=== PATIENT | male | born 1930 | race Caucasian/White ===

== ENCOUNTER 2017-11-01 09:56 | Inpatient (IN) | payer MEDICARE, OTHER ==
[~2017-11-01] VITALS: Ht 175.3 cm; Wt 124.3 kg
[2017-11-01] VITALS (7 sets, daily range): BP systolic 80–160; BP diastolic 48–74
[~2017-11-01 09:56] MED LIST: AMARYL4 MG ORAL; COUMADIN4 MG ORAL; COUMADIN5 MG ORAL; CRESTOR10 M1 ORAL; FUROSEMIDE20 M1 ORAL; LYRICA50 MG ORAL; MULTIVITAMINS1 EA13 ORAL; POTASSIUM CHLOR8 ME3 PO; PRILOSEC20 MG ORAL; TOPROL XL25 MG ORAL; TRADJENTA5 MG PO; VITAMIN B122500 MCG PO
--- NOTE | 2017-11-01 09:56 | Emergency Room Report ---
History of Present Illness General Chief Complaint: General Complaint Present Illness HPI Patient is 87-year-old male brought in by EMS after increased difficulty breathing and recent fall. The patient prior history of CHF. Patient was noted to have mostly been bedbound and had been having hospice care with family member. The patient's family member states that she is no longer able to care for the patient. Patient noted markedly short of breath. The patient had prior history of atrial fibrillation and had been taking Coumadin regularly. The patient had been attempting to walk to the bathroom with a walker and subsequently fell onto the walker. Per patient did not lose consciousness or have any head trauma. Patient had prior history of diabetes as well as dementia. Allergies: Coded Allergies: No Known Allergies (Unverified , 12/21/15) Patient History Past Medical History: see triage record Reviewed Nursing Documentation: PMH: Agreed, PSxH: Agreed Review of Systems All Other Systems: negative except mentioned in HPI Physical Exam Sp02 EP Interpretation: reviewed, normal General Appearance: normal inspection, alert, obese, Chronically Ill Head: atraumatic Neck: supple, no bony tend, limited range of motion Respiratory: normal inspection, no retraction, accessory muscle use, rales Cardiovascular #1: tachycardia, irregularly irregular, edema - 4+ edema Gastrointestinal: normal inspection, normal bowel sounds, non tender, soft, no guarding, no hernia Genitourinary: no CVA tenderness Musculoskeletal: normal inspection, back normal, normal range of motion Neurologic: normal inspection, alert, responsive Psychiatric: normal inspection, judgement/insight normal, mood/affect normal Skin: no rash, other - skin avulsion Medical Decision Making Diagnostic Impression: Primary Impression: Pulmonary edema Additional Impressions: Elevated troponin CHF (congestive heart failure) Anasarca Skin avulsion ER Course Patient presented for shortness of breath. Differential included but was not limited to anemia, pneumonia, pneumothorax, myocardial infarction, pericardial effusion, congestive heart failure, acidosis. Because of complexity of patient' s case laboratory testing and imaging studies were ordered.Laboratory studies were notable for elevated BNP as well as subtherapeutic anticoagulation. A troponin was noted to be elevated. The patient started on IV digoxin due to tachycardia and A. fib rate control. Dr. Chris Guerrero was contacted for inpatient managment due to capitated physician. Laboratory Tests Test 11/01/17 10:00 11/01/17 10:04 Troponin I 0.759 ng/mL (0.000-0.056) White Blood Count 8.0 K/UL (4.8-10.8) Red Blood Count 4.00 M/UL (4.70-6.10) L Hemoglobin 12.4 G/DL (14.2-18.0) L Hematocrit 41.2 % (42.0-52.0) L Mean Corpuscular Volume 103 FL (80-99) H Mean Corpuscular Hemoglobin 31.1 PG (27.0-31.0) H Mean Corpuscular Hemoglobin Concent 30.2 G/DL (32.0-36.0) L Red Cell Distribution Width 17.4 % (11.6-14.8) H Platelet Count 114 K/UL (150-450) L Mean Platelet Volume 9.2 FL (6.5-10.1) Neutrophils (%) (Auto) 73.2 % (45.0-75.0) Lymphocytes (%) (Auto) 16.6 % (20.0-45.0) L Monocytes (%) (Auto) 7.0 % (1.0-10.0) Eosinophils (%) (Auto) 2.1 % (0.0-3.0) Basophils (%) (Auto) 1.1 % (0.0-2.0) Prothrombin Time 18.1 SEC (9.30-11.50) H Prothrombin Time INR 1.7 (0.9-1.1) H Urine Color Pale yellow Urine Appearance Clear Urine pH 7 (4.5-8.0) Urine Specific [place] 1.010 (1.005-1.035) Urine Protein Negative (NEGATIVE) Urine Glucose (UA) Negative (NEGATIVE) Urine Ketones Negative (NEGATIVE) Urine Occult Blood Negative (NEGATIVE) Urine Nitrite Negative (NEGATIVE) Urine Bilirubin Negative (NEGATIVE) Urine Urobilinogen Normal MG/DL (0.0-1.0) Urine Leukocyte Esterase Negative (NEGATIVE) Sodium Level 137 MMOL/L (136-145) Potassium Level 4.4 MMOL/L (3.5-5.1) Chloride Level 99 MMOL/L (98-107) Carbon Dioxide Level 36 MMOL/L (21-32) H Anion Gap 2 mmol/L (5-15) L Blood Urea Nitrogen 19 mg/dL (7-18) H Creatinine 1.1 MG/DL (0.55-1.30) Estimate Glomerular Filtration Rate mL/min (>60) Glucose Level 163 MG/DL (74-106) H Calcium Level 9.7 MG/DL (8.5-10.1) Total Bilirubin 0.8 MG/DL (0.2-1.0) Aspartate Amino Transferase (AST) 24 U/L (15-37) Alanine Aminotransferase (ALT) 23 U/L (12-78) Alkaline Phosphatase 110 U/L (46-116) Total Creatine Kinase 27 U/L (26-308) Creatine Kinase MB 0.9 NG/ML (0.0-3.6) Creatine Kinase MB Relative Index 3.3 Pro-B-Type Natriuretic Peptide 1769 pg/mL (0-125) H Total Protein 8.8 G/DL (6.4-8.2) H Albumin 3.3 G/DL (3.4-5.0) L Globulin 5.5 g/dL Albumin/Globulin Ratio 0.6 (1.0-2.7) L Digoxin Level < 0.2 NG/ML (0.5-2.0) L EKG Diagnostic Results Rate: tachycardiac - 121 Rhythm: NSR ST Segments: no acute changes Rhythm Strip Diag. Results EP Interpretation: yes Rhythm: no PVC's, no ectopy Status: unchanged Disposition: ADMITTED INPATIENT Condition: Eyad Andrade Nov 01, 2017 09:56
[2017-11-01] MEDS ORDERED: Nitroglycerin Subl 0.4mg tab SL PRN (10:00)
[2017-11-01] MEDS ORDERED: GLIPIZIDE5 MG ORAL (10:20)
[2017-11-01 10:24] LABS: BASOPHILS % (AUTO) 1.1 % (0.0-2.0); EOSINOPHILS % (AUTO) 2.1 % (0.0-3.0); HEMATOCRIT 41.2 % (42.0-52.0); HEMOGLOBIN 12.4 G/DL (14.2-18.0); LYMPHOCYTES % (AUTO) 16.6 % (20.0-45.0); MEAN CORPUSCULAR VOLUME 103 FL (80-99); NEUTROPHILS % (AUTO) 73.2 % (45.0-75.0); PLATELET COUNT 114 K/UL (150-450); RED CELL DISTRIBUTION WIDTH 17.4 % (11.6-14.8)
[2017-11-01 10:27] LABS: APPEARANCE,URINE CLEAR; BILIRUBIN, URINE NEGATIVE (NEGATIVE); COLOR,URINE PALE YELLOW; GLUCOSE, URINE (UA) NEGATIVE (NEGATIVE); KETONES,URINE NEGATIVE (NEGATIVE); LEUKOCYTE ESTERASE ,URINE NEGATIVE (NEGATIVE); NITRITE,URINE NEGATIVE (NEGATIVE); PH,URINE 7 (4.5-8.0); PROTEIN,URINE NEGATIVE (NEGATIVE); UROBILINOGEN,URINE NORMAL MG/DL (0.0-1.0)
[2017-11-01 10:28] LABS: ANION GAP 2 mmol/L (5-15); BLOOD UREA NITROGEN 19 mg/dL (7-18); CALCIUM 9.7 MG/DL (8.5-10.1); CARBON DIOXIDE 36 MMOL/L (21-32); CHLORIDE 99 MMOL/L (98-107); CREATININE 1.1 MG/DL (0.55-1.30); POTASSIUM 4.4 MMOL/L (3.5-5.1); SODIUM 137 MMOL/L (136-145)
[2017-11-01] MEDS ORDERED: Aspirin Baby 81mg ORAL ONE (10:45)
[2017-11-01] MEDS ORDERED: Digoxin 0.5mg/2ml Inj IVP ONE (10:45)
[2017-11-01 10:47] LABS: ALANINE AMINOTRANSFERASE 23 U/L (12-78); ALBUMIN 3.3 G/DL (3.4-5.0); ALBUMIN/GLOBULIN RATIO 0.6 (1.0-2.7); ALKALINE PHOSPHATASE 110 U/L (46-116); ASPARTATE AMINO TRANSFERASE 24 U/L (15-37); BILIRUBIN,TOTAL 0.8 MG/DL (0.2-1.0); CKMB 0.9 NG/ML (0.0-3.6); CREATINE KINASE 27 U/L (26-308)
[2017-11-01 10:54] LABS: INR 1.7 (0.9-1.1)
--- NOTE | 2017-11-01 11:03 | Diagnostic Imaging Report ---
Indication: Shortness of breath Technique: One view of the chest Comparison: 12/21/2015 Findings: The heart is enlarged. There is bilateral interstitial and airspace edema. There is probably bilateral pleural fluid. There is some retrocardiac consolidation on the left. Patient's chin obscures right lung apex. The aorta is elongated tortuous and calcified Impression: Cardiomegaly. Evidence of bilateral pulmonary interstitial and airspace edema and likely small bilateral pleural effusions
--- NOTE | 2017-11-01 18:47 | Cardiology Progress Note ---
Assessment/Plan Assessment/Plan diuretic check dig level in am echo repeat trop venous duplex anticoagualtio n record indicated pt in hospice? [id number] Objective Last 24 Hour Vital Signs Date Time Temp Pulse Resp B/P (MAP) Pulse Ox O2 Delivery O2 Flow Rate FiO2 11/01/17 17:29 122 30 94 Facial 50 11/01/17 16:00 60 11/01/17 16:00 97.6 109 18 138/70 99 Bi-pap 60 11/01/17 16:00 96 11/01/17 15:22 135 21 95 Facial 50 11/01/17 14:54 97.9 102 35 143/48 96 Bi-pap 40 97.9 11/01/17 13:41 97.9 102 35 143/48 96 Bi-pap 40 97.9 11/01/17 12:35 100 30 96 Facial 35 11/01/17 12:19 40 11/01/17 12:16 102 28 106/66 21 Bi-pap 40 11/01/17 11:18 97.9 29 117/62 94 Bi-pap 40 97.9 11/01/17 10:46 127 54 Bi-pap 35 11/01/17 10:46 129 11/01/17 10:42 127 54 93 Facial 35 11/01/17 10:27 133/74 11/01/17 10:11 97.9 20 133/74 96 Non-Rebreather 97.9 11/01/17 10:08 97.9 20 80/50 96 Non-Rebreather 97.9 11/01/17 09:51 97.8 130 20 80/50 96 Non-Rebreather 97.9 Laboratory Tests Test 11/01/17 10:00 11/01/17 10:04 11/01/17 11:57 Troponin I 0.759 ng/mL (0.000-0.056) 0.696 ng/mL (0.000-0.056) White Blood Count 8.0 K/UL (4.8-10.8) Red Blood Count 4.00 M/UL (4.70-6.10) L Hemoglobin 12.4 G/DL (14.2-18.0) L Hematocrit 41.2 % (42.0-52.0) L Mean Corpuscular Volume 103 FL (80-99) H Mean Corpuscular Hemoglobin 31.1 PG (27.0-31.0) H Mean Corpuscular Hemoglobin Concent 30.2 G/DL (32.0-36.0) L Red Cell Distribution Width 17.4 % (11.6-14.8) H Platelet Count 114 K/UL (150-450) L Mean Platelet Volume 9.2 FL (6.5-10.1) Neutrophils (%) (Auto) 73.2 % (45.0-75.0) Lymphocytes (%) (Auto) 16.6 % (20.0-45.0) L Monocytes (%) (Auto) 7.0 % (1.0-10.0) Eosinophils (%) (Auto) 2.1 % (0.0-3.0) Basophils (%) (Auto) 1.1 % (0.0-2.0) Prothrombin Time 18.1 SEC (9.30-11.50) H Prothromb Time International Ratio 1.7 (0.9-1.1) H Urine Color Pale yellow Urine Appearance Clear Urine pH 7 (4.5-8.0) Urine Specific [place] 1.010 (1.005-1.035) Urine Protein Negative (NEGATIVE) Urine Glucose (UA) Negative (NEGATIVE) Urine Ketones Negative (NEGATIVE) Urine Occult Blood Negative (NEGATIVE) Urine Nitrite Negative (NEGATIVE) Urine Bilirubin Negative (NEGATIVE) Urine Urobilinogen Normal MG/DL (0.0-1.0) Urine Leukocyte Esterase Negative (NEGATIVE) Sodium Level 137 MMOL/L (136-145) Potassium Level 4.4 MMOL/L (3.5-5.1) Chloride Level 99 MMOL/L (98-107) Carbon Dioxide Level 36 MMOL/L (21-32) H Anion Gap 2 mmol/L (5-15) L Blood Urea Nitrogen 19 mg/dL (7-18) H Creatinine 1.1 MG/DL (0.55-1.30) Estimat Glomerular Filtration Rate mL/min (>60) Glucose Level 163 MG/DL (74-106) H Calcium Level 9.7 MG/DL (8.5-10.1) Total Bilirubin 0.8 MG/DL (0.2-1.0) Aspartate Amino Transf (AST/SGOT) 24 U/L (15-37) Alanine Aminotransferase (ALT/SGPT) 23 U/L (12-78) Alkaline Phosphatase 110 U/L (46-116) Total Creatine Kinase 27 U/L (26-308) Creatine Kinase MB 0.9 NG/ML (0.0-3.6) Creatine Kinase MB Relative Index 3.3 Pro-B-Type Natriuretic Peptide 1769 pg/mL (0-125) H Total Protein 8.8 G/DL (6.4-8.2) H Albumin 3.3 G/DL (3.4-5.0) L Globulin 5.5 g/dL Albumin/Globulin Ratio 0.6 (1.0-2.7) L Digoxin Level < 0.2 NG/ML (0.5-2.0) L NAOMIE DO Nov 01, 2017 18:47
[2017-11-01] MEDS ORDERED: Warfarin Sodium 4mg PO ONE (20:00)
--- NOTE | 2017-11-01 22:15 | Consultation ---
DATE OF CONSULTATION: 11/01/2017 CARDIOLOGY CONSULTATION CONSULTING PHYSICIAN: Elmer Kennedy M.D. REFERRING PHYSICIAN: Chris Guerrero M.D. REASON FOR CONSULTATION: Shortness of breath. HISTORY OF PRESENT ILLNESS: This is an elderly gentleman with history of congestive heart failure. Apparently, he has been bedbound and is having hospice care per family members the emergency room physician and he was brought to the emergency room because they were no longer able to care for him. He has had apparently significant shortness of breath, was brought to the emergency room. The patient apparently has attempted to walk to the bathroom and he fell. On questioning, he tells me that he got dizzy when he stood up and he fell. The patient's indicates the patient did not lose any consciousness and did not have any head trauma. PAST MEDICAL HISTORY: Positive for diabetes mellitus and dementia according to the present chart. The old chart indicates the patient was last hospitalized in 12/2015. He has history of syncope with episode of bradycardia and pause up to 2 seconds, chronic atrial fibrillation, on anticoagulation, hypertension, and hyperlipidemia. At that time, he underwent a series of testing including a myocardial perfusion scan that was negative for ischemia and reportedly had ejection fraction of 74%. An echocardiogram at that time had shown ejection fraction of 60% to 65%, but no significant other valvular pathology being noted. Nevertheless, he does have a history of hypertension, hyperlipidemia, gastroesophageal reflux disease, and prior abdominal surgeries. SOCIAL HISTORY: He lives with his . He used to smoke some 30 years ago, does not anymore. REVIEW OF SYSTEMS: GASTROINTESTINAL: Denies any nausea, vomiting, or diarrhea. GENITOURINARY: Denies any burning on urination. PULMONARY: Positive for coughing and sputum production that he describes as green. CONSTITUTIONAL: No fevers or chills noted. PHYSICAL EXAMINATION: GENERAL: Shows to be an elderly gentleman, on BiPAP therapy. NECK: Supple. No jugular venous distention. LUNGS: Show crackles noted bilaterally. CARDIAC: Irregularly irregular. No heaves and thrills noted. ABDOMEN: Soft, nontender. EXTREMITIES: There is significant edema and chronic venous changes on the lower extremity being noted. LABORATORY AND DIAGNOSTIC DATA: A chest x-ray has been performed in the emergency room was read as cardiomegaly and interstitial and air space disease and possibly small pleural effusions. Electrocardiogram shows atrial fibrillation with ventricular responses mildly increased, leftward axis is documented, no significant ST-T wave abnormalities noted. Telemetry also shows atrial fibrillation at this time. Labs, white count of 8, hemoglobin 12.4, and platelet count of 114. Sodium is 137, potassium 4.4, chloride 99, bicarbonate 36, BUN 19, creatinine 1.1, glucose of 163, and calcium is 9.7. Troponin first of 0.759, subsequent 0.0696. ProBNP of 1769, and albumin of 3.3. Urinalysis is unremarkable, and digoxin level less than 0.1. INR is 1.7 at the time of admission. ASSESSMENT AND PLAN: 1. Fall. 2. Cough with purulent sputum. 3. Possible heart failure. 4. Abnormal cardiac enzymes. 5. Thrombocytopenia. This patient was seen in cardiac consultation. A set of orthostatic vitals will be ordered and echocardiogram will be ordered. Cardiac enzymes will be repeated. The level of the enzymes are just above the minimum, will need to follow the pattern of enzyme release to see if this is actually an acute coronary syndrome or more likely related to demand ischemia. Nevertheless, he did receive some diuretics in the emergency room, to which he did respond and I will administer two more diuretics overnight until an echocardiogram becomes available. Further recommendations depending on the findings of the echocardiogram. He is on Coumadin, but has subtherapeutic INR. He may need to be on antibiotics for his reportedly purulent sputum that he is producing. Elmer Kennedy M.D. DR: OVIDIO JOB#: [id number] CC:
[2017-11-02] VITALS: BP 134/71
[2017-11-02] MEDS ORDERED: Metoprolol 5mg/5ml Inj IVP PRN (00:30)
[2017-11-02 04:00] VITALS: BP 113/69
[2017-11-02 04:14] LABS: INR 1.6 (0.9-1.1)
[2017-11-02 05:06] LABS: ANION GAP 3 mmol/L (5-15); BLOOD UREA NITROGEN 17 mg/dL (7-18); CALCIUM 9.1 MG/DL (8.5-10.1); CARBON DIOXIDE 39 MMOL/L (21-32); CHLORIDE 100 MMOL/L (98-107); POTASSIUM 4.2 MMOL/L (3.5-5.1); SODIUM 142 MMOL/L (136-145)
[2017-11-02] MEDS ORDERED: Glimepiride 4mg tab ORAL SCH (06:30)
[2017-11-02] MEDS: GlipiZIDE 5mg tab ORAL SCH ×2 (06:39→16:32)
[2017-11-02 08:00] VITALS: BP 113/71
[2017-11-02] MEDS: Metoprolol Succinate XL 25mg tab ORAL SCH (09:04)
[2017-11-02] MEDS: Lyrica 50mg cap ORAL SCH (09:04)
[2017-11-02] MEDS: Vitamin B-12 500mcg tab ORAL SCH (09:04)
[2017-11-02] MEDS: Multivitamin w/Minerals tab ORAL SCH (09:04)
[2017-11-02 12:00] VITALS: BP 110/68
[2017-11-02] MEDS ORDERED: DUONEB 0.5-3(2.53 ML HHN (14:28)
[2017-11-02] MEDS: Albuterol/Ipratropium 3ml neb HHN PRN ×2 (14:44→20:58)
--- NOTE | 2017-11-02 14:52 | Cardiology Progress Note ---
Assessment/Plan Assessment/Plan 1. Fall. 2. Cough with purulent sputum. 3. Possible heart failure. 4. Abnormal cardiac enzymes demand related 5. Thrombocytopenia echo shows normal wall motion ekg no st t wave abn trop min abn likey demand related crakles souold coarse query if he has ILD diuretic will be given iv he looks better less edema Subjective Cardiovascular: Denies: chest pain Respiratory: Reports: cough, shortness of breath Gastrointestinal/Abdominal: Denies: abdominal pain Genitourinary: Denies: burning Objective Last 24 Hour Vital Signs Date Time Temp Pulse Resp B/P (MAP) Pulse Ox O2 Delivery O2 Flow Rate FiO2 11/02/17 12:45 91 22 95 11/02/17 12:00 98 11/02/17 12:00 14.0 55 11/02/17 12:00 97.8 93 18 110/68 96 Venturi Mask 14.0 55 11/02/17 10:58 89 22 95 11/02/17 09:27 94 22 97 11/02/17 09:04 98 113/71 11/02/17 08:00 30 11/02/17 08:00 98 11/02/17 08:00 98.4 98 20 113/71 94 Bi-pap 30 11/02/17 06:53 101 21 99 Facial 30 11/02/17 04:57 91 20 100 Facial 50 11/02/17 04:00 50 11/02/17 04:00 97.9 91 18 113/69 100 Bi-pap 50 11/02/17 03:45 97 11/02/17 03:19 94 33 98 Facial 50 11/02/17 01:03 82 21 100 Facial 50 11/02/17 00:00 98.0 92 20 134/71 99 Bi-pap 50 11/02/17 00:00 87 11/01/17 22:47 94 22 100 Facial 50 11/01/17 20:00 103 11/01/17 20:00 50 11/01/17 20:00 98.6 108 21 160/69 100 Bi-pap 50 11/01/17 19:00 102 30 98 Facial 50 11/01/17 17:29 122 30 94 Facial 50 11/01/17 16:00 60 11/01/17 16:00 97.6 109 18 138/70 99 Bi-pap 60 11/01/17 16:00 96 11/01/17 15:22 135 21 95 Facial 50 11/01/17 14:54 97.9 102 35 143/48 96 Bi-pap 40 97.9 General Appearance: no apparent distress, alert, obese Neck: supple Cardiovascular: irregularly irregular Respiratory/Chest: crackles/rales - coarse Abdomen: normal bowel sounds, non tender, soft Extremities: trace edema Intake and Output 11/01/17 11/02/17 19:00 07:00 Intake Total 240 ml 100 ml Output Total 2400 ml 1200 ml Balance -2160 ml -1100 ml Intake Oral 240 ml 100 ml Output Urine Total 2400 ml 1200 ml Laboratory Tests Test 11/02/17 03:35 Prothrombin Time 16.6 SEC (9.30-11.50) H Prothromb Time International Ratio 1.6 (0.9-1.1) H Sodium Level 142 MMOL/L (136-145) Potassium Level 4.2 MMOL/L (3.5-5.1) Chloride Level 100 MMOL/L (98-107) Carbon Dioxide Level 39 MMOL/L (21-32) H Anion Gap 3 mmol/L (5-15) L Blood Urea Nitrogen 17 mg/dL (7-18) Creatinine 1.0 MG/DL (0.55-1.30) Estimat Glomerular Filtration Rate mL/min (>60) Glucose Level 116 MG/DL (74-106) H Calcium Level 9.1 MG/DL (8.5-10.1) Magnesium Level 2.7 MG/DL (1.8-2.4) H Troponin I 0.656 ng/mL (0.000-0.056) Pro-B-Type Natriuretic Peptide 2297 pg/mL (0-125) H NAOMIE DO Nov 02, 2017 14:52
--- NOTE | 2017-11-02 15:15 | History and Physical Report ---
DATE OF ADMISSION: 11/01/2017 HISTORY OF PRESENT ILLNESS: This is an 87-year-old male, who has history of congestive heart failure. He came to the hospital with shortness of breath. He has marked edema. He also had gone to the bathroom and fell. There was no loss of consciousness. The patient was seen and worked up. He was placed on BiPAP and diuresed. He is getting significantly better now. He is no longer on BiPAP. PAST MEDICAL HISTORY: Cognitive impairment; diabetes mellitus; congestive heart failure; previous syncope; atrial fibrillation, on anticoagulation; hypertension; and hyperlipidemia. In the past, he has had normal EF. SOCIAL HISTORY: He lives at home with family. Ex-smoker. No history of alcohol use. REVIEW OF SYSTEMS: Unreliable. PHYSICAL EXAMINATION: GENERAL: Reveals an elderly male, at this time on nasal oxygen. HEENT: Unremarkable. CHEST: Bibasilar crackles. HEART: Heart sounds normal. ABDOMEN: Soft. There is 2+ edema. LABORATORY AND DIAGNOSTIC DATA: Lab testing shows white count of 8000, hemoglobin 12, and normal platelet count. Troponin is 0.75, subsequently 0.06. ProBNP is elevated. Albumin 3.3. X-ray of chest shows cardiomegaly. IMPRESSION: 1. Status post fall. 2. Cough with phlegm production. 3. Congestive heart failure. 4. Troponin leak. 5. Cognitive impairment. DISCUSSION: Continue home medications. We will repeat echocardiogram. Cardiology consult noted. Coumadin per pharmacy. Consider addition of antibiotics, although at this point in time, I suspect that there is no actual infection. We will monitor white count and watch for fevers. So far, there has been none. 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 Review of his home medications, the patient is on aspirin, B12, digoxin, Lasix, Glucotrol, metoprolol, multivitamins, potassium, Lyrica, and Coumadin. We will continue to follow carefully. Chris Guerrero M.D. DR: Chase JOB#: [id number] CC:
[2017-11-02 16:00] VITALS: BP 116/67
--- NOTE | 2017-11-02 16:05 | Cardiology Report ---
APPROVED REPORT EXAM: Two-dimensional and M-mode echocardiogram with Doppler and color Doppler. INDICATION Atrial Flutter M-Mode DIMENSIONS IVSd1.5 (0.7-1.1cm)Left Atrium (MM)5.2 (1.6-4.0cm) LVDd3.7 (3.5-5.6cm)Aortic Root3.1 (2.0-3.7cm) PWd1.5 (0.7-1.1cm)Aortic Cusp Exc.2.3 (1.5-2.0cm) LVDs2.2 (2.5-4.0cm) PWs2.1 cm Technically difficult study due to poor acoustic windows. Study quality precludes accurate assessment of regional wall motion. Normal left ventricular chamber size, systolic function and wall motion. Left ventricular ejection fraction estimated to be 55-60 %. Mild left ventricular hypertrophy. Anterior Echo-free space, may be due to pericardial fat or effusion. Moderate left atrial enlargement. Mild right atrial and right ventricular enlargement. Suggestive of right ventricle volume overload. Mild focal aortic valve sclerosis with adequate cusp excursion. Mildly thickened mitral valve leaflets with normal excursion. Mild mitral annulus and aortic root calcification. Normal pulmonic valve structure. Normal tricuspid valve structure. IVC dilated at 3.1 without physiological collapse. Estimated RAP 15 mmHg. A color flow and spectral Doppler study was performed and revealed: Trace aortic regurgitation. Trace mitral regurgitation. Left ventricular diastolic function could not be determined due to A-Fib. Mild to moderate tricuspid regurgitation. Tricuspid systolic velocities suggests peak right ventricular systolic pressure of 78 mmHg, consistent with severe pulmonary hypertension. No pulmonic regurgitation present.
[2017-11-02] MEDS ORDERED: Warfarin Sodium 5mg ORAL ONE (17:00)
[2017-11-02] MEDS: Docusate 100mg cap ORAL SCH (18:07)
[2017-11-02 20:00] VITALS: BP 100/62
[2017-11-02] MEDS: Atorvastatin 20mg tab ORAL SCH (20:58)
[2017-11-03] VITALS: BP 114/70
[2017-11-03 04:00] VITALS: BP 147/82
[2017-11-03 05:00] LABS: BASOPHILS % (AUTO) 1.3 % (0.0-2.0); EOSINOPHILS % (AUTO) 4.1 % (0.0-3.0); HEMATOCRIT 36.8 % (42.0-52.0); HEMOGLOBIN 11.7 G/DL (14.2-18.0); LYMPHOCYTES % (AUTO) 17.8 % (20.0-45.0); MEAN CORPUSCULAR VOLUME 103 FL (80-99); MONOCYTES % (AUTO) 8.7 % (1.0-10.0); NEUTROPHILS % (AUTO) 68.2 % (45.0-75.0); PLATELET COUNT 125 K/UL (150-450); RED BLOOD COUNT 3.58 M/UL (4.70-6.10); RED CELL DISTRIBUTION WIDTH 17.5 % (11.6-14.8); WHITE BLOOD COUNT 8.8 K/UL (4.8-10.8)
[2017-11-03 05:04] LABS: INR 1.5 (0.9-1.1)
[2017-11-03 05:14] LABS: ANION GAP 1 mmol/L (5-15); BLOOD UREA NITROGEN 16 mg/dL (7-18); CARBON DIOXIDE 40 MMOL/L (21-32); CHLORIDE 100 MMOL/L (98-107); POTASSIUM 4.1 MMOL/L (3.5-5.1); SODIUM 141 MMOL/L (136-145)
[2017-11-03] MEDS: GlipiZIDE 5mg tab ORAL SCH ×2 (07:01→17:13)
[2017-11-03 08:00] VITALS: BP 117/62
--- NOTE | 2017-11-03 08:21 | Pulmonology Progress Note ---
Assessment/Plan Assessment/Plan IMPRESSION: 1. Status post fall. 2. Cough with phlegm production. 3. Congestive heart failure. 4. Troponin leak. 5. Cognitive impairment. DISCUSSION: Continue home medications. Has LVEF 55-60% on ECHO. Coumadin per pharmacy. Consider addition of antibiotics, although at this point in time, I suspect that there is no actual infection. I will monitor white count and watch for fevers. 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 Continue diuresus BiPAP q pm Chris Guerrero M.D. Subjective Interval Events: Looking and feeling better Constitutional: Reports: no symptoms HEENT: Repors: no symptoms Respiratory: Reports: dry cough, shortness of breath Cardiovascular: Reports: no symptoms Gastrointestinal/Abdominal: Reports: no symptoms Allergies: Coded Allergies: No Known Allergies (Unverified , 12/21/15) Objective Last 24 Hour Vital Signs Date Time Temp Pulse Resp B/P (MAP) Pulse Ox O2 Delivery O2 Flow Rate FiO2 11/03/17 08:00 14.0 55 11/03/17 08:00 98.7 104 22 117/62 98 Bi-pap 50 11/03/17 07:15 95 24 Venturi Mask 14.0 55 11/03/17 04:00 14.0 55 11/03/17 04:00 98.0 112 22 147/82 98 Bi-pap 50 11/03/17 04:00 91 11/03/17 00:00 95 11/03/17 00:00 14.0 55 11/03/17 00:00 97.7 99 22 114/70 98 Bi-pap 50 11/02/17 21:23 101 20 96 11/02/17 21:10 103 20 96 Venturi Mask 55 11/02/17 20:58 102 24 92 Venturi Mask 14.0 55 11/02/17 20:00 89 11/02/17 20:00 14.0 55 11/02/17 20:00 98.1 99 22 100/62 98 Bi-pap 50 11/02/17 17:27 88 21 98 Facial 50 11/02/17 16:00 50 11/02/17 16:00 98.0 98 20 116/67 99 Bi-pap 50 11/02/17 16:00 89 11/02/17 15:20 89 21 97 Facial 50 11/02/17 14:47 105 26 Venturi Mask 14.0 55 11/02/17 14:45 105 26 90 Venturi Mask 14.0 55 11/02/17 12:45 91 22 95 11/02/17 12:00 98 11/02/17 12:00 14.0 55 11/02/17 12:00 97.8 93 18 110/68 96 Venturi Mask 14.0 55 11/02/17 10:58 89 22 95 11/02/17 09:27 94 22 97 11/02/17 09:04 98 113/71 Intake and Output 11/02/17 11/03/17 19:00 07:00 Intake Total 720 ml 100 ml Output Total 2700 ml Balance 720 ml -2600 ml Intake Oral 720 ml 100 ml Output Urine Total 2700 ml General Appearance: no acute distress HEENT: normocephalic Respiratory/Chest: chest wall non-tender, crackles/rales Cardiovascular: normal peripheral pulses, normal rate Abdomen: soft, non tender Laboratory Tests 11/03/17 04:05: White Blood Count 8.8, Red Blood Count 3.58L, Hemoglobin 11.7L, Hematocrit 36.8L , Mean Corpuscular Volume 103H, Mean Corpuscular Hemoglobin 32.6H, Mean Corpuscular Hemoglobin Concent 31.8L, Red Cell Distribution Width 17.5H, Platelet Count 125L, Mean Platelet Volume 8.9, Neutrophils (%) (Auto) 68.2, Lymphocytes (%) (Auto) 17.8L, Monocytes (%) (Auto) 8.7, Eosinophils (%) (Auto) 4.1H, Basophils (%) (Auto) 1.3, Prothrombin Time 16.0H, Prothromb Time International Ratio 1.5H, Sodium Level 141, Potassium Level 4.1, Chloride Level 100, Carbon Dioxide Level 40H, Anion Gap 1L, Blood Urea Nitrogen 16, Creatinine 1.0, Estimat Glomerular Filtration Rate , Glucose Level 94, Calcium Level 9.0, Magnesium Level 2.9H, Troponin I 0.717H, Pro-B-Type Natriuretic Peptide 2541H Current Medications Medications (Trade) Dose Ordered Sig/Abhishek Route PRN Reason Start Time Stop Time Status Last Admin Dose Admin Albuterol/ Ipratropium (Albuterol/ Ipratropium) 3 ml Q4HRT PRN HHN Shortness of Breath 11/02/17 14:30 11/07/17 14:29 11/02/17 20:58 Atorvastatin Calcium (Lipitor) 20 mg BEDTIME ORAL 11/02/17 21:00 12/02/17 20:59 11/02/17 20:58 Cyanocobalamin (Vitamin B-12) 2,500 mcg DAILY ORAL 11/02/17 09:00 12/02/17 08:59 11/02/17 09:04 Dextrose (Dextrose 50%) STAT PRN IV Hypoglycemia 11/01/17 17:00 12/01/17 16:59 Docusate Sodium (Colace) 100 mg TWICE A DAY ORAL 11/02/17 18:00 12/02/17 17:59 11/02/17 18:07 Furosemide (Lasix) 20 mg EVERY 12 HOURS IV 11/02/17 15:00 12/02/17 14:59 11/02/17 20:58 Glipizide (Glucotrol) 5 mg BIAC ORAL 11/02/17 06:30 12/02/17 06:29 11/03/17 07:01 Metoprolol Succinate (Toprol XL) 25 mg DAILY ORAL 11/02/17 09:00 12/02/17 08:59 11/02/17 09:04 Metoprolol Tartrate (Lopressor) 2.5 mg Q4H PRN IVP For High Blood Pressure 11/02/17 00:30 12/02/17 00:29 Multivitamins Therapeutic (Therapeutic Multivitamin) 1 ea DAILY ORAL 11/02/17 09:00 12/02/17 08:59 11/02/17 09:04 Nitroglycerin (Ntg) 0.4 mg Q5M PRN SL Prn sob 11/01/17 10:00 12/01/17 09:59 11/01/17 10:27 Potassium Chloride (K-Dur) 10 meq DAILY ORAL 11/02/17 09:00 12/02/17 08:59 11/02/17 09:03 Pregabalin (Lyrica) 50 mg DAILY ORAL 11/02/17 09:00 12/02/17 08:59 11/02/17 09:04 Warfarin Sodium (Coumadin per pharmacy) 1 ea DAILY PRN MISC Per rx protocol 11/01/17 18:00 12/01/17 17:59 Warfarin Sodium (Coumadin) 5 mg COUMADIN ONCE ORAL 11/03/17 17:00 11/03/17 17:01 Chris Guerrero MD Nov 03, 2017 08:21
[2017-11-03] MEDS: Albuterol/Ipratropium 3ml neb HHN PRN ×2 (08:54→21:56)
[2017-11-03] MEDS: Vitamin B-12 500mcg tab ORAL SCH (09:09)
[2017-11-03] MEDS: Lyrica 50mg cap ORAL SCH (09:09)
[2017-11-03] MEDS: Docusate 100mg cap ORAL SCH ×2 (09:09→17:13)
[2017-11-03] MEDS: Multivitamin w/Minerals tab ORAL SCH (09:10)
[2017-11-03] MEDS: Metoprolol Succinate XL 25mg tab ORAL SCH (09:10)
--- NOTE | 2017-11-03 11:13 | Cardiology Progress Note ---
Assessment/Plan Assessment/Plan 1. Fall. 2. Cough with purulent sputum. 3. Possible heart failure. 4. Abnormal cardiac enzymes demand related 5. Thrombocytopenia echo shows normal wall motion ekg no st t wave abn trop min abn likely demand related no peak no hermilo to suggest a coronary syndrome crackles sound coarse query if he has ILD will d/w dr guan diuretic will be continued he looks better less edema Subjective Cardiovascular: Denies: chest pain Respiratory: Reports: shortness of breath, SOB at rest Gastrointestinal/Abdominal: Denies: abdominal pain Genitourinary: Denies: discharge Objective Last 24 Hour Vital Signs Date Time Temp Pulse Resp B/P (MAP) Pulse Ox O2 Delivery O2 Flow Rate FiO2 11/03/17 09:14 87 24 97 Venturi Mask 55 11/03/17 09:10 101 117/62 11/03/17 08:55 101 24 95 Venturi Mask 14.0 55 11/03/17 08:00 14.0 55 11/03/17 08:00 98.7 104 22 117/62 98 Bi-pap 50 11/03/17 07:47 112 11/03/17 07:15 95 24 Venturi Mask 14.0 55 11/03/17 04:00 14.0 55 11/03/17 04:00 98.0 112 22 147/82 98 Bi-pap 50 11/03/17 04:00 91 11/03/17 00:00 95 11/03/17 00:00 14.0 55 11/03/17 00:00 97.7 99 22 114/70 98 Bi-pap 50 11/02/17 21:23 101 20 96 11/02/17 21:10 103 20 96 Venturi Mask 55 11/02/17 20:58 102 24 92 Venturi Mask 14.0 55 11/02/17 20:00 89 11/02/17 20:00 14.0 55 11/02/17 20:00 98.1 99 22 100/62 98 Bi-pap 50 11/02/17 17:27 88 21 98 Facial 50 11/02/17 16:00 50 11/02/17 16:00 98.0 98 20 116/67 99 Bi-pap 50 11/02/17 16:00 89 11/02/17 15:20 89 21 97 Facial 50 11/02/17 14:47 105 26 Venturi Mask 14.0 55 11/02/17 14:45 105 26 90 Venturi Mask 14.0 55 11/02/17 12:45 91 22 95 11/02/17 12:00 98 11/02/17 12:00 14.0 55 11/02/17 12:00 97.8 93 18 110/68 96 Venturi Mask 14.0 55 General Appearance: no apparent distress, alert Neck: supple Cardiovascular: irregularly irregular Respiratory/Chest: crackles/rales Abdomen: normal bowel sounds, non tender, soft Extremities: other - mild to mod edema Intake and Output 11/02/17 11/03/17 19:00 07:00 Intake Total 720 ml 100 ml Output Total 2700 ml Balance 720 ml -2600 ml Intake Oral 720 ml 100 ml Output Urine Total 2700 ml Laboratory Tests Test 11/03/17 04:05 White Blood Count 8.8 K/UL (4.8-10.8) Red Blood Count 3.58 M/UL (4.70-6.10) L Hemoglobin 11.7 G/DL (14.2-18.0) L Hematocrit 36.8 % (42.0-52.0) L Mean Corpuscular Volume 103 FL (80-99) H Mean Corpuscular Hemoglobin 32.6 PG (27.0-31.0) H Mean Corpuscular Hemoglobin Concent 31.8 G/DL (32.0-36.0) L Red Cell Distribution Width 17.5 % (11.6-14.8) H Platelet Count 125 K/UL (150-450) L Mean Platelet Volume 8.9 FL (6.5-10.1) Neutrophils (%) (Auto) 68.2 % (45.0-75.0) Lymphocytes (%) (Auto) 17.8 % (20.0-45.0) L Monocytes (%) (Auto) 8.7 % (1.0-10.0) Eosinophils (%) (Auto) 4.1 % (0.0-3.0) H Basophils (%) (Auto) 1.3 % (0.0-2.0) Prothrombin Time 16.0 SEC (9.30-11.50) H Prothromb Time International Ratio 1.5 (0.9-1.1) H Sodium Level 141 MMOL/L (136-145) Potassium Level 4.1 MMOL/L (3.5-5.1) Chloride Level 100 MMOL/L (98-107) Carbon Dioxide Level 40 MMOL/L (21-32) H Anion Gap 1 mmol/L (5-15) L Blood Urea Nitrogen 16 mg/dL (7-18) Creatinine 1.0 MG/DL (0.55-1.30) Estimat Glomerular Filtration Rate mL/min (>60) Glucose Level 94 MG/DL (74-106) Calcium Level 9.0 MG/DL (8.5-10.1) Magnesium Level 2.9 MG/DL (1.8-2.4) H Troponin I 0.717 ng/mL (0.000-0.056) Pro-B-Type Natriuretic Peptide 2541 pg/mL (0-125) H NAOMIE DO Nov 03, 2017 11:13
[2017-11-03 12:00] VITALS: BP 108/56
[2017-11-03 16:00] VITALS: BP 116/74
[2017-11-03] MEDS ORDERED: Warfarin Sodium 5mg ORAL ONE (17:00)
[2017-11-03 20:00] VITALS: BP 116/74
--- NOTE | 2017-11-03 21:51 | Wound Care Consultation ---
Wound Assessment Wound Assessment #1: Wound Number: 1 Wound Present on Admission: Yes New Wound: No Status Change of Wound: No Wound Location Body Site Modif: mid Wound Location Body Site: other - Sacrococcygeal DTI extending to left and right buttocks Wound Type: pressure ulcer Maico Test: Does not Maico Pressure Ulcer Stage: Deep Tissue Injury Wound Thickness: Full Thickness Wound Length: 4.5 Wound Width: 6.5 Wound Depth: utd Percent of Wound Purple/Maroon: 100 Wound Drainage Amount: None Wound Drainage Odor: None/Absent Tissue Surrounding Wound: Intact Wound General Appearance: Reddened - purple/maroon Wound Assessment #2: Wound Number: 2 Wound Present on Admission: Yes New Wound: No Status Change of Wound: No Wound Location Body Site Modif: left Wound Location Body Site: toe - tip Wound Type: pressure ulcer Maico Test: Does not [place] Pressure Ulcer Stage: Deep Tissue Injury Wound Thickness: Full Thickness Wound Length: 1.0 Wound Width: 1.0 Wound Depth: utd Percent of Wound Purple/Maroon: 100 Wound Drainage Amount: None Wound Drainage Odor: None/Absent Tissue Surrounding Wound: Intact Wound General Appearance: Reddened - purple/maroon Wound Assessment #3: Wound Number: 3 Wound Present on Admission: Yes New Wound: No Status Change of Wound: No Wound Location Body Site Modif: right Wound Location Body Site: toe - tip Wound Type: pressure ulcer Ma[place] Test: Does not [place] Pressure Ulcer Stage: Deep Tissue Injury Wound Thickness: Full Thickness Wound Length: 1.0 Wound Width: 1.0 Wound Depth: utd Percent of Wound Purple/Maroon: 100 Wound Drainage Amount: None Wound Drainage Odor: None/Absent Tissue Surrounding Wound: Intact Wound General Appearance: Reddened - purple/maroon Wound Comment #1 Sacrococcygeal DTI extending to left and right buttock #2 Left tip of big toe #3 Right tip of big toe #4 Skin tear with flap on Left prado Recommendation -Local wound care per protocol -Heel protector on both heels -Offload both heels -Optimize nutrition -Low air loss mattress -Turn and reposition -Keep clean and dry -Assess and f/u accordingly for any changes ALEXIS SALCEDO RN Nov 03, 2017 21:51
[2017-11-03] MEDS: Atorvastatin 20mg tab ORAL SCH (21:59)
[2017-11-04] VITALS: BP 128/69
[2017-11-04 04:00] VITALS: BP 134/79
[2017-11-04 05:37] LABS: BASOPHILS % (AUTO) 0.9 % (0.0-2.0); EOSINOPHILS % (AUTO) 4.8 % (0.0-3.0); HEMATOCRIT 40.3 % (42.0-52.0); HEMOGLOBIN 12.4 G/DL (14.2-18.0); LYMPHOCYTES % (AUTO) 19.5 % (20.0-45.0); MEAN CORPUSCULAR VOLUME 104 FL (80-99); MONOCYTES % (AUTO) 8.9 % (1.0-10.0); NEUTROPHILS % (AUTO) 65.9 % (45.0-75.0); PLATELET COUNT 130 K/UL (150-450); RED BLOOD COUNT 3.89 M/UL (4.70-6.10); RED CELL DISTRIBUTION WIDTH 17.8 % (11.6-14.8); WHITE BLOOD COUNT 8.8 K/UL (4.8-10.8)
[2017-11-04 05:47] LABS: ANION GAP -4 mmol/L (5-15); BLOOD UREA NITROGEN 14 mg/dL (7-18); CALCIUM 9.4 MG/DL (8.5-10.1); CHLORIDE 100 MMOL/L (98-107); POTASSIUM 4.1 MMOL/L (3.5-5.1); SODIUM 138 MMOL/L (136-145)
[2017-11-04] MEDS: GlipiZIDE 5mg tab ORAL SCH ×2 (05:51→16:43)
[2017-11-04 06:00] LABS: INR 1.8 (0.9-1.1)
[2017-11-04 06:10] LABS: CARBON DIOXIDE 40 MMOL/L (21-32)
[2017-11-04 08:00] VITALS: BP 134/78
[2017-11-04] MEDS: Multivitamin w/Minerals tab ORAL SCH (08:50)
[2017-11-04] MEDS: Metoprolol Succinate XL 25mg tab ORAL SCH (08:50)
[2017-11-04] MEDS: Vitamin B-12 500mcg tab ORAL SCH (08:50)
[2017-11-04] MEDS: Docusate 100mg cap ORAL SCH ×2 (08:50→18:15)
[2017-11-04] MEDS: Lyrica 50mg cap ORAL SCH (08:51)
[2017-11-04 12:00] VITALS: BP 137/86
--- NOTE | 2017-11-04 13:42 | Pulmonology Progress Note ---
Assessment/Plan Assessment/Plan IMPRESSION: 1. Status post fall. 2. Cough with phlegm production. 3. Congestive heart failure. 4. Troponin leak. 5. Cognitive impairment. DISCUSSION: Continue home medications. Has LVEF 55-60% on ECHO. Coumadin per pharmacy. Consider addition of antibiotics, although at this point in time, I suspect that there is no actual infection. I will monitor white count and watch for fevers. 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 Continue diuresus BiPAP q pm Will request CT chest to rule out fibrosis Chris Guerrero M.D. Subjective Interval Events: None; feeling better Constitutional: Reports: no symptoms HEENT: Repors: no symptoms Respiratory: Reports: no symptoms Cardiovascular: Reports: no symptoms Allergies: Coded Allergies: No Known Allergies (Unverified , 12/21/15) Objective Last 24 Hour Vital Signs Date Time Temp Pulse Resp B/P (MAP) Pulse Ox O2 Delivery O2 Flow Rate FiO2 11/04/17 12:00 14.0 55 11/04/17 12:00 96.6 88 22 137/86 93 Venturi Mask 14.0 55 11/04/17 08:50 88 134/78 11/04/17 08:47 Venturi Mask 14.0 55 11/04/17 08:46 92 Venturi Mask 14.0 55 11/04/17 08:00 96.8 88 20 134/78 91 Venturi Mask 14.0 55 11/04/17 08:00 14.0 55 11/04/17 07:35 88 22 Venturi Mask 14.0 55 11/04/17 04:00 14.0 55 11/04/17 04:00 97.5 98 20 134/79 94 Venturi Mask 55 11/04/17 03:41 88 11/04/17 00:06 92 11/04/17 00:00 14.0 55 11/04/17 00:00 96.4 98 20 128/69 94 Venturi Mask 55 11/03/17 21:56 55 11/03/17 21:55 94 22 96 Venturi Mask 14.0 55 2/18/18 20:00 14.0 55 11/03/17 20:00 96.6 101 22 116/74 96 Venturi Mask 96.0 55 11/03/17 19:52 93 11/03/17 19:28 90 22 Venturi Mask 14.0 55 11/03/17 16:00 98.7 96 22 116/74 98 Bi-pap 50 11/03/17 16:00 84 11/03/17 16:00 14.0 55 Intake and Output 11/03/17 11/04/17 19:00 07:00 Intake Total 350 ml 350 ml Output Total 1350 ml 1250 ml Balance -1000 ml -900 ml Intake Oral 350 ml 350 ml Output Urine Total 1350 ml 1250 ml HEENT: normocephalic Respiratory/Chest: chest wall non-tender, lungs clear Cardiovascular: normal peripheral pulses, normal rate Abdomen: normal bowel sounds, soft, non tender Laboratory Tests 11/04/17 04:30: White Blood Count 8.8, Red Blood Count 3.89L, Hemoglobin 12.4L, Hematocrit 40.3L , Mean Corpuscular Volume 104H, Mean Corpuscular Hemoglobin 31.9H, Mean Corpuscular Hemoglobin Concent 30.8L, Red Cell Distribution Width 17.8H, Platelet Count 130L, Mean Platelet Volume 8.9, Neutrophils (%) (Auto) 65.9, Lymphocytes (%) (Auto) 19.5L, Monocytes (%) (Auto) 8.9, Eosinophils (%) (Auto) 4.8H, Basophils (%) (Auto) 0.9, Prothrombin Time 19.2H, Prothromb Time International Ratio 1.8H, Sodium Level 138, Potassium Level 4.1, Chloride Level 100, Carbon Dioxide Level 40H, Anion Gap -4L, Blood Urea Nitrogen 14, Creatinine 1.0, Estimat Glomerular Filtration Rate , Glucose Level 112H, Calcium Level 9.4 Current Medications Medications (Trade) Dose Ordered Sig/Abhishek Route PRN Reason Start Time Stop Time Status Last Admin Dose Admin Albuterol/ Ipratropium (Albuterol/ Ipratropium) 3 ml Q4HRT PRN HHN Shortness of Breath 11/02/17 14:30 11/07/17 14:29 11/03/17 21:56 Atorvastatin Calcium (Lipitor) 20 mg BEDTIME ORAL 11/02/17 21:00 12/02/17 20:59 11/03/17 21:59 Cyanocobalamin (Vitamin B-12) 2,500 mcg DAILY ORAL 11/02/17 09:00 12/02/17 08:59 11/04/17 08:50 Dextrose (Dextrose 50%) STAT PRN IV Hypoglycemia 11/01/17 17:00 12/01/17 16:59 Docusate Sodium (Colace) 100 mg TWICE A DAY ORAL 11/02/17 18:00 12/02/17 17:59 11/04/17 08:50 Furosemide (Lasix) 20 mg EVERY 12 HOURS IV 11/02/17 15:00 12/02/17 14:59 11/04/17 08:50 Glipizide (Glucotrol) 5 mg BIAC ORAL 11/02/17 06:30 12/02/17 06:29 11/04/17 05:51 Metoprolol Succinate (Toprol XL) 25 mg DAILY ORAL 11/02/17 09:00 12/02/17 08:59 11/04/17 08:50 Metoprolol Tartrate (Lopressor) 2.5 mg Q4H PRN IVP For High Blood Pressure 11/02/17 00:30 12/02/17 00:29 Multivitamins Therapeutic (Therapeutic Multivitamin) 1 ea DAILY ORAL 11/02/17 09:00 12/02/17 08:59 11/04/17 08:50 Potassium Chloride (K-Dur) 10 meq DAILY ORAL 11/02/17 09:00 12/02/17 08:59 11/04/17 08:50 Pregabalin (Lyrica) 50 mg DAILY ORAL 11/02/17 09:00 12/02/17 08:59 11/04/17 08:51 Warfarin Sodium (Coumadin per pharmacy) 1 ea DAILY PRN MISC Per rx protocol 11/01/17 18:00 12/01/17 17:59 Warfarin Sodium (Coumadin) 5 mg COUMADIN ORAL 11/04/17 17:00 11/04/17 17:01 Chris Guerrero MD Nov 04, 2017 13:42
--- NOTE | 2017-11-04 15:43 | Diagnostic Imaging Report ---
Clinical Indication: Shortness of breath Technique: Spiral acquisition obtained through the chest. No IV contrast utilized, per high resolution protocol. Axial 5 x 5 mm slices were reconstructed. Axial 1 mm thick slices were reconstructed using high resolution algorithm at 10 mm intervals. Multiplanar reconstructions generated. Total dose length product 1008.02 mGycm. CTDIvol(s) 28.55 mGy. Dose reduction achieved using automated exposure control Comparison: none Findings: There is extensive diffuse somewhat irregular interstitial septal thickening. There is extensive groundglass opacity in a mosaic pattern, with the majority the lung affected by the groundglass opacity, spared areas representing a minority of the lung. This process involves the upper and lower lobes, with a predilection for neither There are posterior dependent atelectatic changes. There are some consolidative opacities and bronchial narrowing at both lung bases. There is trace pleural fluid on the right. Mural opacities in the trachea and left mainstem bronchus most likely represent secretions. No bullae are demonstrated. No evidence of bronchiectasis or honeycombing. The heart is enlarged. There is no pericardial effusion. The main pulmonary artery is dilated, measuring 4 cm in diameter. The right pulmonary artery is also dilated, measuring 3.3 cm in diameter. There are numerous prominent but not frankly enlarged mediastinal nodes present. The esophagus is equivocally somewhat thick walled. Unusual mural opacities are seen in the distal esophagus possibly representing surgical clips. Included thyroid is unremarkable. No axillary or chest wall mass or adenopathy demonstrated. The bones demonstrate degenerative spondylosis changes. The included upper abdominal anatomy is remarkable for the presence of a calcification in the right hepatic lobe. Impression: Diffuse groundglass opacity in a mosaic pattern and interstitial septal thickening. Given the presence of cardiomegaly, most likely differential consideration is pulmonary edema. Other possibilities include pneumonia, hypersensitivity pneumonitis, organizing pneumonia, alveolar proteinosis, usual interstitial pneumonia, nonspecific interstitial pneumonia, pulmonary hemorrhage, acute eosinophilic pneumonia Dilated main and right pulmonary artery, consistent with pulmonary arterial hypertension Equivocal clinically somewhat thick walled esophagus. Could indicate esophagitis. Possible prior esophageal surgery Right hepatic lobe calcification consistent with old granulomatous disease Degenerative spondylosis The CT scanner at [facility] is accredited by the [employer] and the scans are performed using protocols designed to limit radiation exposure to as low as reasonably achievable to attain images of sufficient resolution adequate for diagnostic evaluation.
[2017-11-04 16:00] VITALS: BP 129/98
[2017-11-04] MEDS ORDERED: Warfarin Sodium 5mg ORAL SCH (17:00)
--- NOTE | 2017-11-04 19:52 | Cardiology Progress Note ---
Assessment/Plan Assessment/Plan 1. Fall. 2. Cough with purulent sputum. 3. Possible heart failure. 4. Abnormal cardiac enzymes demand related 5. Thrombocytopenia echo shows normal wall motion ekg no st t wave abn trop min abn likely demand related no peak no hermilo to suggest a coronary syndrome crackles sound coarse query if he has ILD awiat ct diuretic will be continued he looks better less edema but still on fm hodl diurtic in am if bp is low Subjective Cardiovascular: Denies: chest pain, lightheadedness, palpitations Respiratory: Denies: shortness of breath Gastrointestinal/Abdominal: Denies: abdominal pain Genitourinary: Denies: burning Objective Last 24 Hour Vital Signs Date Time Temp Pulse Resp B/P (MAP) Pulse Ox O2 Delivery O2 Flow Rate FiO2 11/04/17 16:00 96.6 93 20 129/98 93 Venturi Mask 14.0 55 11/04/17 16:00 99 11/04/17 16:00 14.0 55 11/04/17 12:00 84 11/04/17 12:00 14.0 55 11/04/17 12:00 96.6 88 22 137/86 93 Venturi Mask 14.0 55 11/04/17 08:50 88 134/78 11/04/17 08:47 Venturi Mask 14.0 55 11/04/17 08:46 92 Venturi Mask 14.0 55 11/04/17 08:00 96.8 88 20 134/78 91 Venturi Mask 14.0 55 11/04/17 08:00 14.0 55 11/04/17 08:00 94 11/04/17 07:35 88 22 Venturi Mask 14.0 55 11/04/17 04:00 14.0 55 11/04/17 04:00 97.5 98 20 134/79 94 Venturi Mask 55 11/04/17 03:41 88 11/04/17 00:06 92 11/04/17 00:00 14.0 55 11/04/17 00:00 96.4 98 20 128/69 94 Venturi Mask 55 11/03/17 21:56 55 11/03/17 21:55 94 22 96 Venturi Mask 14.0 55 11/03/17 20:00 14.0 55 11/03/17 20:00 96.6 101 22 116/74 96 Venturi Mask 96.0 55 11/03/17 19:52 93 General Appearance: alert Neck: supple Cardiovascular: normal rate Respiratory/Chest: crackles/rales Abdomen: normal bowel sounds, non tender, soft Extremities: no swelling Intake and Output 11/03/17 11/04/17 19:00 07:00 Intake Total 350 ml 350 ml Output Total 1350 ml 1250 ml Balance -1000 ml -900 ml Intake Oral 350 ml 350 ml Output Urine Total 1350 ml 1250 ml Laboratory Tests Test 11/04/17 04:30 White Blood Count 8.8 K/UL (4.8-10.8) Red Blood Count 3.89 M/UL (4.70-6.10) L Hemoglobin 12.4 G/DL (14.2-18.0) L Hematocrit 40.3 % (42.0-52.0) L Mean Corpuscular Volume 104 FL (80-99) H Mean Corpuscular Hemoglobin 31.9 PG (27.0-31.0) H Mean Corpuscular Hemoglobin Concent 30.8 G/DL (32.0-36.0) L Red Cell Distribution Width 17.8 % (11.6-14.8) H Platelet Count 130 K/UL (150-450) L Mean Platelet Volume 8.9 FL (6.5-10.1) Neutrophils (%) (Auto) 65.9 % (45.0-75.0) Lymphocytes (%) (Auto) 19.5 % (20.0-45.0) L Monocytes (%) (Auto) 8.9 % (1.0-10.0) Eosinophils (%) (Auto) 4.8 % (0.0-3.0) H Basophils (%) (Auto) 0.9 % (0.0-2.0) Prothrombin Time 19.2 SEC (9.30-11.50) H Prothromb Time International Ratio 1.8 (0.9-1.1) H Sodium Level 138 MMOL/L (136-145) Potassium Level 4.1 MMOL/L (3.5-5.1) Chloride Level 100 MMOL/L (98-107) Carbon Dioxide Level 40 MMOL/L (21-32) H Anion Gap -4 mmol/L (5-15) L Blood Urea Nitrogen 14 mg/dL (7-18) Creatinine 1.0 MG/DL (0.55-1.30) Estimat Glomerular Filtration Rate mL/min (>60) Glucose Level 112 MG/DL (74-106) H Calcium Level 9.4 MG/DL (8.5-10.1) NAOMIE DO Nov 04, 2017 19:52
[2017-11-04 20:01] VITALS: BP 95/66
[2017-11-04] MEDS: Atorvastatin 20mg tab ORAL SCH (20:40)
[2017-11-05] VITALS (7 sets, daily range): BP systolic 110–170; BP diastolic 49–92
[2017-11-05] MEDS: GlipiZIDE 5mg tab ORAL SCH ×2 (05:29→16:30)
[2017-11-05 05:31] LABS: ANION GAP 0 mmol/L (5-15); BLOOD UREA NITROGEN 16 mg/dL (7-18); CALCIUM 9.4 MG/DL (8.5-10.1); CARBON DIOXIDE 39 MMOL/L (21-32); CHLORIDE 97 MMOL/L (98-107); POTASSIUM 4.5 MMOL/L (3.5-5.1); SODIUM 136 MMOL/L (136-145)
[2017-11-05 07:30] LABS: BASOPHILS % (AUTO) 0.6 % (0.0-2.0); EOSINOPHILS % (AUTO) 2.2 % (0.0-3.0); HEMOGLOBIN 12.7 G/DL (14.2-18.0); LYMPHOCYTES % (AUTO) 18.6 % (20.0-45.0); MEAN CORPUSCULAR VOLUME 100 FL (80-99); MONOCYTES % (AUTO) 6.8 % (1.0-10.0); NEUTROPHILS % (AUTO) 71.8 % (45.0-75.0); PLATELET COUNT 134 K/UL (150-450); RED CELL DISTRIBUTION WIDTH 17.2 % (11.6-14.8)
[2017-11-05] MEDS: Metoprolol Succinate XL 25mg tab ORAL SCH (09:09)
[2017-11-05] MEDS: Lyrica 50mg cap ORAL SCH (09:10)
[2017-11-05] MEDS: Vitamin B-12 500mcg tab ORAL SCH (09:11)
[2017-11-05] MEDS: Multivitamin w/Minerals tab ORAL SCH (09:11)
[2017-11-05] MEDS: Docusate 100mg cap ORAL SCH ×2 (09:11→18:00)
--- NOTE | 2017-11-05 11:34 | Pulmonology Progress Note ---
Assessment/Plan Assessment/Plan 1. Status post fall. 2. Cough with phlegm production. 3. Congestive heart failure. 4. Troponin leak. 5. Cognitive impairment. 6. Gross hematuria 7. Severe pulm HTN 8. Prob pulm fibrosis Gross hematuria INR 1.8 on coumadin called urology CT with GG infiltrates and pulm HTN suggests long-standing process nasal O2 PT eval Subjective Constitutional: Reports: fatigue, anorexia Respiratory: Denies: shortness of breath Genitourinary: Reports: hematuria Allergies: Coded Allergies: No Known Allergies (Unverified , 12/21/15) Objective Last 24 Hour Vital Signs Date Time Temp Pulse Resp B/P (MAP) Pulse Ox O2 Delivery O2 Flow Rate FiO2 11/05/17 09:09 98 142/88 11/05/17 09:07 Venturi Mask 55 11/05/17 09:06 97.0 11/05/17 08:53 95.9 95 20 142/88 95 98 11/05/17 08:30 98.5 98 22 142/88 95 95 11/05/17 08:00 14.0 55 11/05/17 08:00 87 11/05/17 07:53 Venturi Mask 12.0 50 11/05/17 07:52 96 Venturi Mask 12.0 50 11/05/17 07:51 89 22 Venturi Mask 14.0 55 11/05/17 04:40 94 11/05/17 04:02 96.8 98 19 122/92 95 11/05/17 04:00 14.0 55 11/05/17 00:11 96.8 100 18 131/68 94 11/04/17 23:27 94 11/04/17 20:01 96.4 83 17 95/66 96 11/04/17 20:00 14.0 55 11/04/17 19:25 107 11/04/17 16:00 96.6 93 20 129/98 93 Venturi Mask 14.0 55 11/04/17 16:00 99 11/04/17 16:00 14.0 55 11/04/17 12:00 84 11/04/17 12:00 14.0 55 11/04/17 12:00 96.6 88 22 137/86 93 Venturi Mask 14.0 55 Intake and Output 11/04/17 11/05/17 19:00 07:00 Intake Total 480 ml Output Total 900 ml 1700 ml Balance -900 ml -1220 ml Intake Oral 480 ml Output Urine Total 900 ml 1700 ml # Bowel Movements 3 General Appearance: no acute distress HEENT: atraumatic Respiratory/Chest: decreased breath sounds Cardiovascular: normal rate Abdomen: soft, non tender Laboratory Tests 11/05/17 04:10: White Blood Count 9.0, Red Blood Count 4.00L, Hemoglobin 12.7L, Hematocrit 40.0L , Mean Corpuscular Volume 100H, Mean Corpuscular Hemoglobin 31.8H, Mean Corpuscular Hemoglobin Concent 31.8L, Red Cell Distribution Width 17.2H, Platelet Count 134L, Mean Platelet Volume 9.2, Neutrophils (%) (Auto) 71.8, Lymphocytes (%) (Auto) 18.6L, Monocytes (%) (Auto) 6.8, Eosinophils (%) (Auto) 2.2, Basophils (%) (Auto) 0.6 11/05/17 05:00: Sodium Level 136, Potassium Level 4.5, Chloride Level 97L, Carbon Dioxide Level 39H, Anion Gap 0L, Blood Urea Nitrogen 16, Creatinine 1.0, Estimat Glomerular Filtration Rate , Glucose Level 138H, Calcium Level 9.4, Magnesium Level 2.2, Pro-B-Type Natriuretic Peptide 2294H Current Medications Medications (Trade) Dose Ordered Sig/Abhishek Route PRN Reason Start Time Stop Time Status Last Admin Dose Admin Albuterol/ Ipratropium (Albuterol/ Ipratropium) 3 ml Q4HRT PRN HHN Shortness of Breath 11/02/17 14:30 11/07/17 14:29 11/03/17 21:56 Atorvastatin Calcium (Lipitor) 20 mg BEDTIME ORAL 11/02/17 21:00 12/02/17 20:59 11/04/17 20:40 Cyanocobalamin (Vitamin B-12) 2,500 mcg DAILY ORAL 11/02/17 09:00 12/02/17 08:59 11/05/17 09:11 Dextrose (Dextrose 50%) STAT PRN IV Hypoglycemia 11/01/17 17:00 12/01/17 16:59 Docusate Sodium (Colace) 100 mg TWICE A DAY ORAL 11/02/17 18:00 12/02/17 17:59 11/05/17 09:11 Furosemide (Lasix) 20 mg EVERY 12 HOURS IV 11/04/17 21:00 12/04/17 20:59 11/05/17 09:11 Glipizide (Glucotrol) 5 mg BIAC ORAL 11/02/17 06:30 12/02/17 06:29 11/05/17 05:29 Metoprolol Succinate (Toprol XL) 25 mg DAILY ORAL 11/02/17 09:00 12/02/17 08:59 11/05/17 09:09 Metoprolol Tartrate (Lopressor) 2.5 mg Q4H PRN IVP For High Blood Pressure 11/02/17 00:30 12/02/17 00:29 Multivitamins Therapeutic (Therapeutic Multivitamin) 1 ea DAILY ORAL 11/02/17 09:00 12/02/17 08:59 11/05/17 09:11 Potassium Chloride (K-Dur) 10 meq DAILY ORAL 11/02/17 09:00 12/02/17 08:59 11/05/17 09:10 Pregabalin (Lyrica) 50 mg DAILY ORAL 11/02/17 09:00 12/02/17 08:59 11/05/17 09:10 Warfarin Sodium (Coumadin per pharmacy) 1 ea DAILY PRN MISC Per rx protocol 11/01/17 18:00 12/01/17 17:59 BEAU QUINTANILLA Nov 05, 2017 11:34
--- NOTE | 2017-11-05 12:23 | Cardiology Progress Note ---
Assessment/Plan Assessment/Plan 1. Fall. 2. Cough with purulent sputum. 3. Possible heart failure. 4. Abnormal cardiac enzymes demand related 5. Thrombocytopenia 6. pulm htn 7. ? pulm fibrosis echo shows normal wall motion ekg no st t wave abn trop min abn likely demand related no peak no hermilo to suggest a coronary syndrome crackles sound coarse ct resutl noted: Impression: Diffuse groundglass opacity in a mosaic pattern and interstitial septal thickening. Given the presence of cardiomegaly, most likely differential consideration is pulmonary edema. Other possibilities include pneumonia, hypersensitivity pneumonitis, organizing pneumonia, alveolar proteinosis, usual interstitial pneumonia, nonspecific interstitial pneumonia, pulmonary hemorrhage , acute eosinophilic pneumonia Dilated main and right pulmonary artery, consistent with pulmonary arterial hypertension diuretic will be continued as bp allows for today and maybe tomorrow depending on co2 adn bp adn cr level he looks better less edema but [place] exam remains sig abn , he is on oxygen by nc but barely sat 90% d/w dr ortega ok to dc tele to med surg hematuria ealier seem better now await urologsy possible dc of [place] Subjective Cardiovascular: Denies: chest pain, lightheadedness, palpitations Respiratory: Denies: shortness of breath Gastrointestinal/Abdominal: Denies: abdominal pain Genitourinary: Denies: burning Subjective betetr Objective Last 24 Hour Vital Signs Date Time Temp Pulse Resp B/P (MAP) Pulse Ox O2 Delivery O2 Flow Rate FiO2 11/05/17 12:00 4.0 11/05/17 09:09 98 142/88 11/05/17 09:07 Venturi Mask 55 11/05/17 09:06 97.0 11/05/17 08:53 95.9 95 20 142/88 95 98 11/05/17 08:30 98.5 98 22 142/88 95 95 11/05/17 08:00 14.0 55 11/05/17 08:00 87 11/05/17 07:53 Venturi Mask 12.0 50 11/05/17 07:52 96 Venturi Mask 12.0 50 11/05/17 07:51 89 22 Venturi Mask 14.0 55 11/05/17 04:40 94 11/05/17 04:02 96.8 98 19 122/92 95 11/05/17 04:00 14.0 55 11/05/17 00:11 96.8 100 18 131/68 94 11/04/17 23:27 94 11/04/17 20:01 96.4 83 17 95/66 96 11/04/17 20:00 14.0 55 11/04/17 19:25 107 11/04/17 16:00 96.6 93 20 129/98 93 Venturi Mask 14.0 55 11/04/17 16:00 99 11/04/17 16:00 14.0 55 General Appearance: no apparent distress, alert, obese, patient on isolation Cardiovascular: normal rate Respiratory/Chest: crackles/rales Abdomen: normal bowel sounds, non tender, soft Extremities: no swelling Intake and Output 11/04/17 11/05/17 19:00 07:00 Intake Total 480 ml Output Total 900 ml 1700 ml Balance -900 ml -1220 ml Intake Oral 480 ml Output Urine Total 900 ml 1700 ml # Bowel Movements 3 Laboratory Tests Test 11/05/17 04:10 11/05/17 05:00 White Blood Count 9.0 K/UL (4.8-10.8) Red Blood Count 4.00 M/UL (4.70-6.10) L Hemoglobin 12.7 G/DL (14.2-18.0) L Hematocrit 40.0 % (42.0-52.0) L Mean Corpuscular Volume 100 FL (80-99) H Mean Corpuscular Hemoglobin 31.8 PG (27.0-31.0) H Mean Corpuscular Hemoglobin Concent 31.8 G/DL (32.0-36.0) L Red Cell Distribution Width 17.2 % (11.6-14.8) H Platelet Count 134 K/UL (150-450) L Mean Platelet Volume 9.2 FL (6.5-10.1) Neutrophils (%) (Auto) 71.8 % (45.0-75.0) Lymphocytes (%) (Auto) 18.6 % (20.0-45.0) L Monocytes (%) (Auto) 6.8 % (1.0-10.0) Eosinophils (%) (Auto) 2.2 % (0.0-3.0) Basophils (%) (Auto) 0.6 % (0.0-2.0) Sodium Level 136 MMOL/L (136-145) Potassium Level 4.5 MMOL/L (3.5-5.1) Chloride Level 97 MMOL/L (98-107) L Carbon Dioxide Level 39 MMOL/L (21-32) H Anion Gap 0 mmol/L (5-15) L Blood Urea Nitrogen 16 mg/dL (7-18) Creatinine 1.0 MG/DL (0.55-1.30) Estimat Glomerular Filtration Rate mL/min (>60) Glucose Level 138 MG/DL (74-106) H Calcium Level 9.4 MG/DL (8.5-10.1) Magnesium Level 2.2 MG/DL (1.8-2.4) Pro-B-Type Natriuretic Peptide 2294 pg/mL (0-125) H NAOMIE DO Nov 05, 2017 12:23
--- NOTE | 2017-11-05 13:03 | Physician Query ---
--------- THIS DOCUMENT IS A PERMANENT PART OF THE MEDICAL RECORD --------- PLEASE COMPLETE THE FORM BEFORE SIGNING Dear CRISTIAN Martinez Date 11/06/17 Telegraph Office Manager/CDS Bekah Pearce Telegraph Office Manager/CDS Phone #: [phone] Exercise your independent professional judgment when responding to query. Questions asked do not imply particular answer is desired or expected. We greatly appreciate your clarification on this issue. Clinical Documentation States: H & P (11/02/17) "This is an 87-year-old male came to the hospital with shortness of breath." "IMPRESSION: Cough with phlegm production. Congestive heart failure." Clinical Findings Show: CT Chest no Contrast - Diffuse groundglass opacity in a mosaic pattern and interstitial septal thickening. differential consideration is pulmonary edema. Other possibilities include pneumonia, hypersensitivity pneumonitis, organizing pneumonia, alveolar proteinosis, usual interstitial pneumonia, nonspecific interstitial pneumonia. RR - 54, 54, 29 HR - 130, 127, 129 BP - 80/50, 80/50, 133/74 Patient was on BIPAP with O2 flow rate of 14.0 for more than 24 hours, now on Venturi mask with flow rate of 12.0 - 14.0 Please clarify if the patient had any of the following conditions based on the above clinical findings: []Respiratory Failure [] Acute [] Chronic (on home O2) [x]Acute on Chronic [] Acute Respiratory Distress [] Unable to determine [] Other: Condition Present on Admission: [x] Yes [] No []Clinically Undeterminable Please also document in your Progress Notes and/or Discharge Summary and indicate if the condition was present on admission. Dr. CRISTIAN SIMPSON Date/Time MTDD
[2017-11-05] MEDS: Albuterol/Ipratropium 3ml neb HHN SCH ×4 (14:12→22:53)
[2017-11-05] MEDS ORDERED: Warfarin Sodium 5mg ORAL ONE (17:00)
[2017-11-05 17:50] LABS: APPEARANCE,URINE SLIGHTLY CLOUDY; BILIRUBIN, URINE NEGATIVE (NEGATIVE); GLUCOSE, URINE (UA) NEGATIVE (NEGATIVE); KETONES,URINE NEGATIVE (NEGATIVE); LEUKOCYTE ESTERASE ,URINE 3+ (NEGATIVE); NITRITE,URINE NEGATIVE (NEGATIVE); PH,URINE 8 (4.5-8.0); PROTEIN,URINE 3+ (NEGATIVE); UROBILINOGEN,URINE NORMAL MG/DL (0.0-1.0)
[2017-11-05 17:54] LABS: COLOR,URINE BROWN
[2017-11-05] MEDS: Atorvastatin 20mg tab ORAL SCH (20:45)
[2017-11-05] MEDS: ceFAZolin sod 1 GM in NS 55 ML IVPB SCH (21:16)
[2017-11-06] VITALS (7 sets, daily range): BP systolic 100–137; BP diastolic 60–72
--- NOTE | 2017-11-06 | Consultation ---
DATE OF CONSULTATION: 11/05/2017 CONSULTING PHYSICIAN: Kar Greene M.D. REFERRING PHYSICIAN: Roger Masterson M.D. REASON FOR CONSULTATION: Evaluation of hematuria. HISTORY OF PRESENT ILLNESS: This is an 87-year-old male. He was admitted to the hospital because of shortness of breath. He has a history of CHF and edema. He has a Wallis catheter indwelling, I believe it was placed at the time of admission, gross hematuria was noted. Urology evaluation requested. The patient has been on Coumadin for atrial fibrillation. PAST MEDICAL HISTORY: Significant for above. Also, dementia, diabetes, heart failure, and hyperlipidemia. PAST SURGICAL HISTORY: Unknown. MEDICATIONS: Current medication list was reviewed. He is on Tylenol, [place], albuterol, Lasix, Lipitor, Colace, Toprol, multivitamins, Lyrica, vitamin B12, K-Dur, Glucotrol, Coumadin. ALLERGIES: No known drug allergies. PHYSICAL EXAMINATION: GENERAL: Elderly male, he is on BiPAP, in no acute distress. ABDOMEN: Soft. GENITOURINARY: Wallis is in place, 16-Chinese. Urine is grossly clearing. LABORATORY DATA: His UA from earlier today showed 10 to 15 RBCs, 5 to 10 WBCs, many bacteria. Admit urinalysis was negative. He also has 2+ protein on this urinalysis. White count 9.0, hemoglobin 12.7, and platelets are 134. BUN is 16, creatinine 1.0. DIAGNOSTIC IMAGING STUDIES: There is no renal imaging during this admission. IMPRESSION: 1. Gross hematuria secondary to Wall[place] which is slowly resolving. 2. Benign prostatic hypertrophy. 3. Urinary retention. 4. Probable neurogenic bladder. 5. Pyuria. 6. Proteinuria. PLAN AND DISCUSSION: The patient again does have hematuria presumably secondary to anticoagulation and Wallis catheter. Apparently he was pulling on . I did examine the Wallis, it is in good position, it is draining, urine is clearing. The catheter will be irrigated on a p.r.n. basis. I will also add empiric antibiotics and urine culture will be checked. We will also add finasteride 5 mg daily. He can have a cystoscopy in the future electively. Kar Greene M.D. DR: Kian JOB#: [id number] CC:
[2017-11-06] MEDS: Albuterol/Ipratropium 3ml neb HHN SCH ×6 (03:03→22:37)
[2017-11-06 05:48] LABS: BASOPHILS % (AUTO) 0.8 % (0.0-2.0); EOSINOPHILS % (AUTO) 3.3 % (0.0-3.0); HEMATOCRIT 40.1 % (42.0-52.0); HEMOGLOBIN 12.5 G/DL (14.2-18.0); LYMPHOCYTES % (AUTO) 16.8 % (20.0-45.0); MEAN CORPUSCULAR VOLUME 102 FL (80-99); MONOCYTES % (AUTO) 10.5 % (1.0-10.0); NEUTROPHILS % (AUTO) 68.5 % (45.0-75.0); PLATELET COUNT 146 K/UL (150-450); RED BLOOD COUNT 3.95 M/UL (4.70-6.10); RED CELL DISTRIBUTION WIDTH 17.1 % (11.6-14.8); WHITE BLOOD COUNT 8.5 K/UL (4.8-10.8)
[2017-11-06 06:02] LABS: INR 2.2 (0.9-1.1)
[2017-11-06] MEDS: GlipiZIDE 5mg tab ORAL SCH ×2 (06:11→16:41)
[2017-11-06] MEDS: ceFAZolin sod 1 GM in NS 55 ML IVPB SCH ×3 (06:12→21:43)
[2017-11-06 06:23] LABS: ALANINE AMINOTRANSFERASE 23 U/L (12-78); ALBUMIN 2.9 G/DL (3.4-5.0); ALBUMIN/GLOBULIN RATIO 0.6 (1.0-2.7); ALKALINE PHOSPHATASE 102 U/L (46-116); ANION GAP 0 mmol/L (5-15); ASPARTATE AMINO TRANSFERASE 24 U/L (15-37); BILIRUBIN,TOTAL 0.9 MG/DL (0.2-1.0); BLOOD UREA NITROGEN 21 mg/dL (7-18); CALCIUM 9.5 MG/DL (8.5-10.1); CHLORIDE 100 MMOL/L (98-107); PHOSPHORUS 2.9 MG/DL (2.5-4.9); POTASSIUM 3.8 MMOL/L (3.5-5.1); SODIUM 140 MMOL/L (136-145)
--- NOTE | 2017-11-06 06:56 | Pulmonology Progress Note ---
Assessment/Plan Assessment/Plan IMPRESSION: 1. Status post fall. 2. Cough with phlegm production. 3. Congestive heart failure. 4. Troponin leak. 5. Cognitive impairment. 6. Pulm fibrosis DISCUSSION: Continue home medications. Has LVEF 55-60% on ECHO. Coumadin per pharmacy. Gross hematuria INR 1.8 on coumadin Await urology CT with GG infiltrates and pulm HTN suggests long-standing process nasal O2 PT eval Continue diuresus BiPAP q pm Chris Guerrero M.D. Subjective Interval Events: No sig change; CT and ABG noted Constitutional: Reports: no symptoms HEENT: Repors: no symptoms Respiratory: Reports: dry cough Cardiovascular: Reports: no symptoms Gastrointestinal/Abdominal: Reports: no symptoms Genitourinary: Reports: no symptoms Allergies: Coded Allergies: No Known Allergies (Unverified , 12/21/15) Objective Last 24 Hour Vital Signs Date Time Temp Pulse Resp B/P (MAP) Pulse Ox O2 Delivery O2 Flow Rate FiO2 11/06/17 04:00 98.5 96 24 100/68 97 Venturi Mask 50 98.5 11/06/17 04:00 14.0 50 11/06/17 03:47 95 11/06/17 03:11 101 21 97 Venturi Mask 50 11/06/17 03:03 101 18 97 Venturi Mask 55 11/06/17 03:03 99 21 97 Facial 35 11/06/17 01:44 97 21 97 Facial 35 11/06/17 00:02 92 11/06/17 00:00 35 11/06/17 00:00 97.7 98 20 119/72 96 Bi-pap 97.7 11/05/17 23:00 97 21 100 Bi-pap 35 11/05/17 22:54 97 24 99 Facial 35 11/05/17 22:54 105 22 100 Bi-pap 35 11/05/17 21:14 90 28 97 Facial 40 11/05/17 20:00 96.3 95 20 110/49 100 Bi-pap 96.3 11/05/17 20:00 101 11/05/17 19:36 89 36 100 Bi-pap 11/05/17 19:23 89 22 95 Bi-pap 35 11/05/17 19:21 89 35 96 Facial 40 11/05/17 19:20 Bi-pap 35 11/05/17 19:20 96 Bi-pap 11/05/17 16:54 35 11/05/17 16:50 35 11/05/17 16:50 Bi-pap 11/05/17 16:46 88 21 98 Facial 50 11/05/17 16:40 50 11/05/17 16:04 95.9 92 21 170/81 93 Venturi Mask 50 95.9 95 11/05/17 16:00 99 11/05/17 16:00 50 11/05/17 14:58 101 22 94 Venturi Mask 12.0 50 11/05/17 14:38 99 22 98 Non-Rebreather 15.0 100 11/05/17 12:00 4.0 11/05/17 12:00 97.3 92 22 136/68 94 Nasal Cannula 4.0 92 11/05/17 11:37 95 11/05/17 09:09 98 142/88 11/05/17 09:07 Venturi Mask 55 11/05/17 09:06 97.0 11/05/17 08:53 95.9 95 20 142/88 95 98 11/05/17 08:30 98.5 98 22 142/88 95 95 11/05/17 08:00 14.0 55 11/05/17 08:00 87 11/05/17 07:53 Venturi Mask 12.0 50 11/05/17 07:52 96 Venturi Mask 12.0 50 11/05/17 07:51 89 22 Venturi Mask 14.0 55 Intake and Output 11/05/17 11/06/17 19:00 07:00 Intake Total 300 ml 160 ml Output Total 1414 ml 800 ml Balance -1114 ml -640 ml Intake Oral 300 ml 50 ml IV Total 110 ml Output Urine Total 1414 ml 800 ml General Appearance: no acute distress HEENT: normocephalic Respiratory/Chest: chest wall non-tender, crackles/rales Cardiovascular: normal peripheral pulses, normal rate Abdomen: normal bowel sounds Laboratory Tests 11/05/17 12:05: Urine Color Brown, Urine Appearance Slightly cloudy, Urine pH 8, Urine Specific [place] 1.010, Urine Protein 3+H, Urine Glucose (UA) Negative, Urine Ketones Negative, Urine Occult Blood 5+H, Urine Nitrite Negative, Urine Bilirubin Negative, Urine Urobilinogen Normal, Urine Leukocyte Esterase 3+H, Urine RBC 10- 15H, Urine WBC 5-10H, Urine Squamous Epithelial Cells None, Urine Amorphous Sediment FewH, Urine Bacteria ManyH 11/05/17 13:37: Prothrombin Time 21.6H, Prothromb Time International Ratio 2.0H 11/05/17 16:17: Arterial Blood pH 7.340L, Arterial Blood Partial Pressure CO2 70.8*H, Arterial Blood Partial Pressure O2 66.8L, Arterial Blood HCO3 37.3H, Arterial Blood Oxygen Saturation 91.8L, Arterial Blood Base Excess 8.9, Milad Test Positive 11/06/17 04:25: Prothrombin Time [Pending], Prothromb Time International Ratio [Pending], White Blood Count 8.5, Red Blood Count 3.95L, Hemoglobin 12.5L, Hematocrit 40.1L, Mean Corpuscular Volume 102H, Mean Corpuscular Hemoglobin 31.7H, Mean Corpuscular Hemoglobin Concent 31.2L, Red Cell Distribution Width 17.1H, Platelet Count 146L, Mean Platelet Volume 8.7, Neutrophils (%) (Auto) 68.5, Lymphocytes (%) (Auto) 16.8L, Monocytes (%) (Auto) 10.5H, Eosinophils (%) (Auto ) 3.3H, Basophils (%) (Auto) 0.8, Sodium Level [Pending], Potassium Level [ Pending], Chloride Level [Pending], Carbon Dioxide Level [Pending], Blood Urea Nitrogen [Pending], Creatinine [Pending], Estimat Glomerular Filtration Rate [ Pending], Glucose Level [Pending], Calcium Level [Pending], Phosphorus Level [ Pending], Magnesium Level [Pending], Total Bilirubin [Pending], Aspartate Amino Transf (AST/SGOT) [Pending], Alanine Aminotransferase (ALT/SGPT) [Pending], Alkaline Phosphatase [Pending], Total Protein [Pending], Albumin [Pending], Globulin [Pending] Current Medications Medications (Trade) Dose Ordered Sig/Abhishek Route PRN Reason Start Time Stop Time Status Last Admin Dose Admin Acetaminophen (Tylenol) 650 mg Q4H PRN ORAL Mild Pain/Temp > 100.5 11/05/17 16:15 12/05/17 16:14 Acetaminophen/ Hydrocodone Bitart ([place] 5/325) 1 tab Q4H PRN ORAL Severe Pain (Pain Scale 7-10) 11/05/17 16:15 11/12/17 16:14 Albuterol/ Ipratropium (Albuterol/ Ipratropium) 3 ml Q4HRT HHN 11/05/17 11:45 11/07/17 14:29 11/06/17 03:03 Atorvastatin Calcium (Lipitor) 20 mg BEDTIME ORAL 11/02/17 21:00 12/02/17 20:59 11/05/17 20:45 Cefazolin Sodium 1 gm/Sodium Chloride 55 ml @ 110 mls/hr Q8HR IVPB 11/05/17 21:00 11/12/17 20:59 11/06/17 06:12 Cyanocobalamin (Vitamin B-12) 2,500 mcg DAILY ORAL 11/02/17 09:00 12/02/17 08:59 11/05/17 09:11 Dextrose (Dextrose 50%) STAT PRN IV Hypoglycemia 11/01/17 17:00 12/01/17 16:59 Docusate Sodium (Colace) 100 mg TWICE A DAY ORAL 11/02/17 18:00 12/02/17 17:59 11/05/17 18:00 Finasteride (Proscar) 5 mg QHS ORAL 11/05/17 20:00 12/05/17 19:59 11/05/17 20:45 Furosemide (Lasix) 20 mg EVERY 12 HOURS IV 11/04/17 21:00 12/04/17 20:59 11/05/17 20:45 Glipizide (Glucotrol) 5 mg BIAC ORAL 11/02/17 06:30 12/02/17 06:29 11/06/17 06:11 Metoprolol Succinate (Toprol XL) 25 mg DAILY ORAL 11/02/17 09:00 12/02/17 08:59 11/05/17 09:09 Metoprolol Tartrate (Lopressor) 2.5 mg Q4H PRN IVP For High Blood Pressure 11/02/17 00:30 12/02/17 00:29 Multivitamins Therapeutic (Therapeutic Multivitamin) 1 ea DAILY ORAL 11/02/17 09:00 12/02/17 08:59 11/05/17 09:11 Potassium Chloride (K-Dur) 10 meq DAILY ORAL 11/02/17 09:00 12/02/17 08:59 11/05/17 09:10 Pregabalin (Lyrica) 50 mg DAILY ORAL 11/02/17 09:00 12/02/17 08:59 11/05/17 09:10 Warfarin Sodium (Coumadin per pharmacy) 1 ea DAILY PRN MISC Per rx protocol 11/01/17 18:00 12/01/17 17:59 Chris Guerrero MD Nov 06, 2017 06:56
[2017-11-06 07:11] LABS: CARBON DIOXIDE 41 MMOL/L (21-32)
[2017-11-06] MEDS: Docusate 100mg cap ORAL SCH ×2 (09:26→16:41)
[2017-11-06] MEDS: Multivitamin w/Minerals tab ORAL SCH (09:27)
[2017-11-06] MEDS: Lyrica 50mg cap ORAL SCH (09:27)
[2017-11-06] MEDS: Metoprolol Succinate XL 25mg tab ORAL SCH (09:27)
[2017-11-06] MEDS: Vitamin B-12 500mcg tab ORAL SCH (09:38)
--- NOTE | 2017-11-06 10:11 | Urology Progress Note ---
Assessment/Plan Assessment/Plan 1. Gross hematuria secondary to [place] which is slowly resolving. 2. Benign prostatic hypertrophy. 3. Urinary retention. 4. Probable neurogenic bladder. 5. Pyuria. 6. Proteinuria. monitor clinically [place]lain hand irrigated, minimal clots hand irrigate PRN proscar added empiric abx f/u on urine cx Subjective Allergies: Coded Allergies: No Known Allergies (Unverified , 12/21/15) Subjective all noted Objective Last 24 Hour Vital Signs Date Time Temp Pulse Resp B/P (MAP) Pulse Ox O2 Delivery O2 Flow Rate FiO2 11/06/17 09:27 94 121/60 11/06/17 08:00 14.0 50 11/06/17 08:00 97.5 94 22 121/60 97 Venturi Mask 50 97.5 11/06/17 07:05 99 Venturi Mask 14.0 50 11/06/17 07:05 Venturi Mask 12.0 50 11/06/17 07:05 115 20 100 Venturi Mask 50 11/06/17 07:00 102 18 99 Venturi Mask 50 11/06/17 04:00 98.5 96 24 100/68 97 Venturi Mask 50 98.5 11/06/17 04:00 14.0 50 11/06/17 03:47 95 11/06/17 03:11 101 21 97 Venturi Mask 50 11/06/17 03:03 101 18 97 Venturi Mask 55 11/06/17 03:03 99 21 97 Facial 35 11/06/17 01:44 97 21 97 Facial 35 11/06/17 00:02 92 11/06/17 00:00 35 11/06/17 00:00 97.7 98 20 119/72 96 Bi-pap 97.7 11/05/17 23:00 97 21 100 Bi-pap 35 11/05/17 22:54 97 24 99 Facial 35 11/05/17 22:54 105 22 100 Bi-pap 35 11/05/17 21:14 90 28 97 Facial 40 11/05/17 20:00 96.3 95 20 110/49 100 Bi-pap 96.3 11/05/17 20:00 101 11/05/17 19:36 89 36 100 Bi-pap 11/05/17 19:23 89 22 95 Bi-pap 35 11/05/17 19:21 89 35 96 Facial 40 11/05/17 19:20 Bi-pap 35 11/05/17 19:20 96 Bi-pap 11/05/17 16:54 35 11/05/17 16:50 35 11/05/17 16:50 Bi-pap 11/05/17 16:46 88 21 98 Facial 50 11/05/17 16:40 50 11/05/17 16:04 95.9 92 21 170/81 93 Venturi Mask 50 95.9 95 11/05/17 16:00 99 11/05/17 16:00 50 11/05/17 14:58 101 22 94 Venturi Mask 12.0 50 11/05/17 14:38 99 22 98 Non-Rebreather 15.0 100 11/05/17 12:00 4.0 11/05/17 12:00 97.3 92 22 136/68 94 Nasal Cannula 4.0 92 11/05/17 11:37 95 Intake and Output 11/05/17 11/06/17 19:00 07:00 Intake Total 300 ml 160 ml Output Total 1414 ml 800 ml Balance -1114 ml -640 ml Intake Oral 300 ml 50 ml IV Total 110 ml Output Urine Total 1414 ml 800 ml Microbiology Date/Time Source Procedure Growth Status 11/05/17 12:05 Indwelling Cath Urine Culture - Preliminary Resulted Current Medications Medications (Trade) Dose Ordered Sig/Abhishek Route PRN Reason Start Time Stop Time Status Last Admin Dose Admin Acetaminophen (Tylenol) 650 mg Q4H PRN ORAL Mild Pain/Temp > 100.5 11/05/17 16:15 12/05/17 16:14 Acetaminophen/ Hydrocodone Bitart ([place] 5/325) 1 tab Q4H PRN ORAL Severe Pain (Pain Scale 7-10) 11/05/17 16:15 11/12/17 16:14 Albuterol/ Ipratropium (Albuterol/ Ipratropium) 3 ml Q4HRT HHN 11/05/17 11:45 11/07/17 14:29 11/06/17 07:33 Atorvastatin Calcium (Lipitor) 20 mg BEDTIME ORAL 11/02/17 21:00 12/02/17 20:59 11/05/17 20:45 Cefazolin Sodium 1 gm/Sodium Chloride 55 ml @ 110 mls/hr Q8HR IVPB 11/05/17 21:00 11/12/17 20:59 11/06/17 06:12 Cyanocobalamin (Vitamin B-12) 2,500 mcg DAILY ORAL 11/02/17 09:00 12/02/17 08:59 11/06/17 09:38 Dextrose (Dextrose 50%) STAT PRN IV Hypoglycemia 11/01/17 17:00 12/01/17 16:59 Docusate Sodium (Colace) 100 mg TWICE A DAY ORAL 11/02/17 18:00 12/02/17 17:59 11/06/17 09:26 Finasteride (Proscar) 5 mg QHS ORAL 11/05/17 20:00 12/05/17 19:59 11/05/17 20:45 Furosemide (Lasix) 20 mg EVERY 12 HOURS IV 11/04/17 21:00 12/04/17 20:59 11/06/17 09:26 Glipizide (Glucotrol) 5 mg BIAC ORAL 11/02/17 06:30 12/02/17 06:29 11/06/17 06:11 Metoprolol Succinate (Toprol XL) 25 mg DAILY ORAL 11/02/17 09:00 12/02/17 08:59 11/06/17 09:27 Metoprolol Tartrate (Lopressor) 2.5 mg Q4H PRN IVP For High Blood Pressure 11/02/17 00:30 12/02/17 00:29 Multivitamins Therapeutic (Therapeutic Multivitamin) 1 ea DAILY ORAL 11/02/17 09:00 12/02/17 08:59 11/06/17 09:27 Potassium Chloride (K-Dur) 10 meq DAILY ORAL 11/02/17 09:00 12/02/17 08:59 11/06/17 09:26 Pregabalin (Lyrica) 50 mg DAILY ORAL 11/02/17 09:00 12/02/17 08:59 11/06/17 09:27 Warfarin Sodium (Coumadin per pharmacy) 1 ea DAILY PRN MISC Per rx protocol 11/01/17 18:00 12/01/17 17:59 Warfarin Sodium (Coumadin) 5 mg COUMADIN ONCE ORAL 11/06/17 17:00 11/06/17 17:01 Laboratory Tests 11/05/17 12:05: Urine Color Brown, Urine Appearance Slightly cloudy, Urine pH 8, Urine Specific [place] 1.010, Urine Protein 3+H, Urine Glucose (UA) Negative, Urine Ketones Negative, Urine Occult Blood 5+H, Urine Nitrite Negative, Urine Bilirubin Negative, Urine Urobilinogen Normal, Urine Leukocyte Esterase 3+H, Urine RBC 10- 15H, Urine WBC 5-10H, Urine Squamous Epithelial Cells None, Urine Amorphous Sediment FewH, Urine Bacteria ManyH 11/05/17 13:37: Prothrombin Time 21.6H, Prothromb Time International Ratio 2.0H 11/05/17 16:17: Arterial Blood pH 7.340L, Arterial Blood Partial Pressure CO2 70.8*H, Arterial Blood Partial Pressure O2 66.8L, Arterial Blood HCO3 37.3H, Arterial Blood Oxygen Saturation 91.8L, Arterial Blood Base Excess 8.9, Milad Test Positive 11/06/17 04:25: Prothrombin Time 23.7H, Prothromb Time International Ratio 2.2H, White Blood Count 8.5, Red Blood Count 3.95L, Hemoglobin 12.5L, Hematocrit 40.1L, Mean Corpuscular Volume 102H, Mean Corpuscular Hemoglobin 31.7H, Mean Corpuscular Hemoglobin Concent 31.2L, Red Cell Distribution Width 17.1H, Platelet Count 146L , Mean Platelet Volume 8.7, Neutrophils (%) (Auto) 68.5, Lymphocytes (%) (Auto) 16.8L, Monocytes (%) (Auto) 10.5H, Eosinophils (%) (Auto) 3.3H, Basophils (%) ( Auto) 0.8, Sodium Level 140, Potassium Level 3.8, Chloride Level 100, Carbon Dioxide Level 41*H, Anion Gap 0L, Blood Urea Nitrogen 21H, Creatinine 1.0, Estimat Glomerular Filtration Rate , Glucose Level 88, Calcium Level 9.5, Phosphorus Level 2.9, Magnesium Level 2.2, Total Bilirubin 0.9, Aspartate Amino Transf (AST/SGOT) 24, Alanine Aminotransferase (ALT/SGPT) 23, Alkaline Phosphatase 102, Total Protein 8.0, Albumin 2.9L, Globulin 5.1, Albumin/ Globulin Ratio 0.6L Height (Feet): 5 Height (Inches): 9.00 Weight (Pounds): 281 Objective exam stable, urine slightly blood-tinged/heri BAMSHAD,PATRICE Nov 06, 2017 10:11
[2017-11-06] MEDS: Norco 5mg/325mg tab ORAL PRN (13:31)
[2017-11-06] MEDS ORDERED: Warfarin Sodium 5mg ORAL ONE (17:00)
--- NOTE | 2017-11-06 19:49 | Cardiology Progress Note ---
Assessment/Plan Assessment/Plan 1. Fall. 2. Cough with purulent sputum. 3. Possible heart failure. 4. Abnormal cardiac enzymes demand related 5. Thrombocytopenia 6. pulm htn 7. ? pulm fibrosis echo shows normal wall motion ekg no st t wave abn trop min abn likely demand related no peak no hermilo to suggest a coronary syndrome crackles sound coarse ct resutl noted: Impression: Diffuse groundglass opacity in a mosaic pattern and interstitial septal thickening. Given the presence of cardiomegaly, most likely differential consideration is pulmonary edema. Other possibilities include pneumonia, hypersensitivity pneumonitis, organizing pneumonia, alveolar proteinosis, usual interstitial pneumonia, nonspecific interstitial pneumonia, pulmonary hemorrhage , acute eosinophilic pneumonia Dilated main and right pulmonary artery, consistent with pulmonary arterial hypertension dc diuretic as bicarb elevated he looks better less edema but lung exam remains sig abn , ok to dc tele to med surg hematuria ealier seem better now await urologsy possible dc of bulmaro Subjective Cardiovascular: Denies: chest pain, lightheadedness Respiratory: Reports: cough, shortness of breath Gastrointestinal/Abdominal: Denies: abdominal pain Genitourinary: Denies: burning Subjective betetr Objective Last 24 Hour Vital Signs Date Time Temp Pulse Resp B/P (MAP) Pulse Ox O2 Delivery O2 Flow Rate FiO2 11/06/17 19:42 Venturi Mask 12.0 45 11/06/17 19:42 94 24 98 Venturi Mask 12.0 45 11/06/17 19:41 98 Venturi Mask 12.0 45 11/06/17 16:00 14.0 50 11/06/17 16:00 103 11/06/17 16:00 97.9 105 22 124/60 97 Venturi Mask 50 97.9 11/06/17 15:08 98 20 100 Venturi Mask 45 11/06/17 15:00 101 18 99 Venturi Mask 45 11/06/17 14:20 97.6 11/06/17 13:31 97.6 11/06/17 12:50 108 11/06/17 12:29 97.6 112 20 137/72 95 Venturi Mask 50 97.6 11/06/17 12:00 97.6 112 20 137/72 95 Venturi Mask 50 97.6 11/06/17 12:00 14.0 50 11/06/17 10:55 105 20 100 Venturi Mask 45 11/06/17 10:50 98 18 99 Venturi Mask 45 11/06/17 09:27 94 121/60 11/06/17 08:00 14.0 50 11/06/17 08:00 97.5 94 22 121/60 97 Venturi Mask 50 97.5 11/06/17 08:00 99 11/06/17 07:05 99 Venturi Mask 14.0 50 11/06/17 07:05 Venturi Mask 12.0 50 11/06/17 07:05 115 20 100 Venturi Mask 50 11/06/17 07:00 102 18 99 Venturi Mask 50 11/06/17 04:00 98.5 96 24 100/68 97 Venturi Mask 50 98.5 11/06/17 04:00 14.0 50 11/06/17 03:47 95 11/06/17 03:11 101 21 97 Venturi Mask 50 11/06/17 03:03 101 18 97 Venturi Mask 55 11/06/17 03:03 99 21 97 Facial 35 11/06/17 01:44 97 21 97 Facial 35 11/06/17 00:02 92 11/06/17 00:00 35 11/06/17 00:00 97.7 98 20 119/72 96 Bi-pap 97.7 11/05/17 23:00 97 21 100 Bi-pap 35 11/05/17 22:54 97 24 99 Facial 35 11/05/17 22:54 105 22 100 Bi-pap 35 11/05/17 21:14 90 28 97 Facial 40 11/05/17 20:00 96.3 95 20 110/49 100 Bi-pap 96.3 11/05/17 20:00 101 General Appearance: alert Neck: supple Cardiovascular: irregularly irregular Respiratory/Chest: crackles/rales Abdomen: normal bowel sounds, non tender, soft Extremities: no swelling Intake and Output 11/05/17 11/06/17 19:00 07:00 Intake Total 300 ml 360 ml Output Total 1414 ml 800 ml Balance -1114 ml -440 ml Intake Oral 300 ml 250 ml IV Total 110 ml Output Urine Total 1414 ml 800 ml Laboratory Tests Test 11/06/17 04:25 White Blood Count 8.5 K/UL (4.8-10.8) Red Blood Count 3.95 M/UL (4.70-6.10) L Hemoglobin 12.5 G/DL (14.2-18.0) L Hematocrit 40.1 % (42.0-52.0) L Mean Corpuscular Volume 102 FL (80-99) H Mean Corpuscular Hemoglobin 31.7 PG (27.0-31.0) H Mean Corpuscular Hemoglobin Concent 31.2 G/DL (32.0-36.0) L Red Cell Distribution Width 17.1 % (11.6-14.8) H Platelet Count 146 K/UL (150-450) L Mean Platelet Volume 8.7 FL (6.5-10.1) Neutrophils (%) (Auto) 68.5 % (45.0-75.0) Lymphocytes (%) (Auto) 16.8 % (20.0-45.0) L Monocytes (%) (Auto) 10.5 % (1.0-10.0) H Eosinophils (%) (Auto) 3.3 % (0.0-3.0) H Basophils (%) (Auto) 0.8 % (0.0-2.0) Prothrombin Time 23.7 SEC (9.30-11.50) H Prothromb Time International Ratio 2.2 (0.9-1.1) H Sodium Level 140 MMOL/L (136-145) Potassium Level 3.8 MMOL/L (3.5-5.1) Chloride Level 100 MMOL/L (98-107) Carbon Dioxide Level 41 MMOL/L (21-32) *H Anion Gap 0 mmol/L (5-15) L Blood Urea Nitrogen 21 mg/dL (7-18) H Creatinine 1.0 MG/DL (0.55-1.30) Estimat Glomerular Filtration Rate mL/min (>60) Glucose Level 88 MG/DL (74-106) Calcium Level 9.5 MG/DL (8.5-10.1) Phosphorus Level 2.9 MG/DL (2.5-4.9) Magnesium Level 2.2 MG/DL (1.8-2.4) Total Bilirubin 0.9 MG/DL (0.2-1.0) Aspartate Amino Transf (AST/SGOT) 24 U/L (15-37) Alanine Aminotransferase (ALT/SGPT) 23 U/L (12-78) Alkaline Phosphatase 102 U/L (46-116) Total Protein 8.0 G/DL (6.4-8.2) Albumin 2.9 G/DL (3.4-5.0) L Globulin 5.1 g/dL Albumin/Globulin Ratio 0.6 (1.0-2.7) L Microbiology Date/Time Source Procedure Growth Status 11/05/17 12:05 Indwelling Cath Urine Culture - Preliminary Resulted NAOMIE DO Nov 06, 2017 19:48
[2017-11-06] MEDS: Atorvastatin 20mg tab ORAL SCH (21:43)
[2017-11-07] VITALS: BP 113/59
[2017-11-07] MEDS: Albuterol/Ipratropium 3ml neb HHN SCH ×3 (03:05→11:01)
[2017-11-07 04:00] VITALS: BP 122/71
[2017-11-07 06:02] LABS: BASOPHILS % (AUTO) 1.1 % (0.0-2.0); EOSINOPHILS % (AUTO) 5.4 % (0.0-3.0); HEMATOCRIT 37.2 % (42.0-52.0); HEMOGLOBIN 11.8 G/DL (14.2-18.0); LYMPHOCYTES % (AUTO) 20.8 % (20.0-45.0); MEAN CORPUSCULAR VOLUME 101 FL (80-99); NEUTROPHILS % (AUTO) 61.6 % (45.0-75.0); PLATELET COUNT 140 K/UL (150-450); RED BLOOD COUNT 3.69 M/UL (4.70-6.10); RED CELL DISTRIBUTION WIDTH 17.2 % (11.6-14.8)
[2017-11-07 06:10] LABS: ANION GAP 4 mmol/L (5-15); BLOOD UREA NITROGEN 22 mg/dL (7-18); CALCIUM 9.3 MG/DL (8.5-10.1); CARBON DIOXIDE 38 MMOL/L (21-32); CHLORIDE 99 MMOL/L (98-107); CREATININE 1.1 MG/DL (0.55-1.30); POTASSIUM 3.8 MMOL/L (3.5-5.1); SODIUM 141 MMOL/L (136-145)
[2017-11-07] MEDS: ceFAZolin sod 1 GM in NS 55 ML IVPB SCH ×3 (06:22→21:26)
[2017-11-07] MEDS: GlipiZIDE 5mg tab ORAL SCH ×2 (06:23→16:38)
[2017-11-07 06:32] LABS: INR 2.3 (0.9-1.1)
--- NOTE | 2017-11-07 07:25 | Urology Progress Note ---
Assessment/Plan Assessment/Plan 1. Gross hematuria secondary to [place] which is slowly resolving. 2. Benign prostatic hypertrophy. 3. Urinary retention. 4. Probable neurogenic bladder. 5. Pyuria. 6. Proteinuria. monitor clinically chamberlain hand irrigated, minimal clots hand irrigate PRN proscar added empiric abx f/u on urine cx Subjective Allergies: Coded Allergies: No Known Allergies (Unverified , 12/21/15) Subjective all noted Objective Last 24 Hour Vital Signs Date Time Temp Pulse Resp B/P (MAP) Pulse Ox O2 Delivery O2 Flow Rate FiO2 11/07/17 07:17 104 23 99 Venturi Mask 10.0 45 11/07/17 07:17 100 Venturi Mask 10.0 45 11/07/17 07:17 Venturi Mask 10.0 45 11/07/17 05:26 94 17 96 Facial 30 11/07/17 04:00 97.5 93 19 122/71 96 Bi-pap 30 97.5 11/07/17 04:00 30 11/07/17 03:54 101 11/07/17 03:23 94 18 98 Bi-pap 30 11/07/17 03:03 91 18 97 Bi-pap 30 11/07/17 03:01 91 18 97 Facial 30 11/07/17 00:39 91 17 96 Facial 30 11/07/17 00:00 30 11/07/17 00:00 97.5 94 33 113/59 95 Bi-pap 30 97.5 11/07/17 00:00 115 11/06/17 23:00 30 11/06/17 22:58 102 25 97 Facial 30 11/06/17 22:50 100 22 98 Venturi Mask 8.0 40 11/06/17 22:36 100 22 98 Venturi Mask 8.0 40 11/06/17 20:00 97.5 94 20 131/70 97 Venturi Mask 40 97.5 11/06/17 20:00 14.0 50 11/06/17 19:49 100 20 100 Venturi Mask 8.0 40 11/06/17 19:42 Venturi Mask 12.0 45 11/06/17 19:42 94 24 98 Venturi Mask 12.0 45 11/06/17 19:41 98 Venturi Mask 12.0 45 11/06/17 19:06 95 11/06/17 16:00 14.0 50 11/06/17 16:00 103 11/06/17 16:00 97.9 105 22 124/60 97 Venturi Mask 50 97.9 11/06/17 15:08 98 20 100 Venturi Mask 45 11/06/17 15:00 101 18 99 Venturi Mask 45 11/06/17 14:20 97.6 11/06/17 13:31 97.6 11/06/17 12:50 108 11/06/17 12:29 97.6 112 20 137/72 95 Venturi Mask 50 97.6 11/06/17 12:00 97.6 112 20 137/72 95 Venturi Mask 50 97.6 11/06/17 12:00 14.0 50 11/06/17 10:55 105 20 100 Venturi Mask 45 11/06/17 10:50 98 18 99 Venturi Mask 45 11/06/17 09:27 94 121/60 11/06/17 08:00 14.0 50 11/06/17 08:00 97.5 94 22 121/60 97 Venturi Mask 50 97.5 11/06/17 08:00 99 Intake and Output 11/06/17 11/07/17 19:00 07:00 Intake Total 725 ml 355 ml Output Total 600 ml 500 ml Balance 125 ml -145 ml Intake Oral 670 ml 300 ml IV Total 55 ml 55 ml Output Urine Total 600 ml 500 ml Microbiology Date/Time Source Procedure Growth Status 11/05/17 12:05 Indwelling Cath Urine Culture - Preliminary Resulted Current Medications Medications (Trade) Dose Ordered Sig/Abhishek Route PRN Reason Start Time Stop Time Status Last Admin Dose Admin Acetaminophen (Tylenol) 650 mg Q4H PRN ORAL Mild Pain/Temp > 100.5 11/05/17 16:15 12/05/17 16:14 Acetaminophen/ Hydrocodone Bitart ([place] 5/325) 1 tab Q4H PRN ORAL Severe Pain (Pain Scale 7-10) 11/05/17 16:15 11/12/17 16:14 11/06/17 13:31 Albuterol/ Ipratropium (Albuterol/ Ipratropium) 3 ml Q4HRT HHN 11/05/17 11:45 11/07/17 14:29 11/07/17 07:12 Atorvastatin Calcium (Lipitor) 20 mg BEDTIME ORAL 11/02/17 21:00 12/02/17 20:59 11/06/17 21:43 Cefazolin Sodium 1 gm/Sodium Chloride 55 ml @ 110 mls/hr Q8HR IVPB 11/05/17 21:00 11/12/17 20:59 11/07/17 06:22 Cyanocobalamin (Vitamin B-12) 2,500 mcg DAILY ORAL 11/02/17 09:00 12/02/17 08:59 11/06/17 09:38 Dextrose (Dextrose 50%) STAT PRN IV Hypoglycemia 11/01/17 17:00 12/01/17 16:59 Docusate Sodium (Colace) 100 mg TWICE A DAY ORAL 11/02/17 18:00 12/02/17 17:59 11/06/17 16:41 Finasteride (Proscar) 5 mg QHS ORAL 11/05/17 20:00 12/05/17 19:59 11/06/17 21:43 Glipizide (Glucotrol) 5 mg BIAC ORAL 11/02/17 06:30 12/02/17 06:29 11/07/17 06:23 Metoprolol Succinate (Toprol XL) 25 mg DAILY ORAL 11/02/17 09:00 12/02/17 08:59 11/06/17 09:27 Metoprolol Tartrate (Lopressor) 2.5 mg Q4H PRN IVP For High Blood Pressure 11/02/17 00:30 12/02/17 00:29 Multivitamins Therapeutic (Therapeutic Multivitamin) 1 ea DAILY ORAL 11/02/17 09:00 12/02/17 08:59 11/06/17 09:27 Potassium Chloride (K-Dur) 10 meq DAILY ORAL 11/02/17 09:00 12/02/17 08:59 11/06/17 09:26 Pregabalin (Lyrica) 50 mg DAILY ORAL 11/02/17 09:00 12/02/17 08:59 11/06/17 09:27 Warfarin Sodium (Coumadin per pharmacy) 1 ea DAILY PRN MISC Per rx protocol 11/01/17 18:00 12/01/17 17:59 Laboratory Tests 11/07/17 05:05: White Blood Count 8.0, Red Blood Count 3.69L, Hemoglobin 11.8L, Hematocrit 37.2L , Mean Corpuscular Volume 101H, Mean Corpuscular Hemoglobin 32.1H, Mean Corpuscular Hemoglobin Concent 31.8L, Red Cell Distribution Width 17.2H, Platelet Count 140L, Mean Platelet Volume 8.9, Neutrophils (%) (Auto) 61.6, Lymphocytes (%) (Auto) 20.8, Monocytes (%) (Auto) 11.0H, Eosinophils (%) (Auto) 5.4H, Basophils (%) (Auto) 1.1, Prothrombin Time 24.7H, Prothromb Time International Ratio 2.3H, Sodium Level 141, Potassium Level 3.8, Chloride Level 99, Carbon Dioxide Level 38H, Anion Gap 4L, Blood Urea Nitrogen 22H, Creatinine 1.1, Estimat Glomerular Filtration Rate , Glucose Level 79, Calcium Level 9.3 Height (Feet): 5 Height (Inches): 9.00 Weight (Pounds): 279 Objective exam stable, urine slightly blood-tinged/heri PATRICE GARCIA Nov 07, 2017 07:25
[2017-11-07 08:00] VITALS: BP 98/41
[2017-11-07] MEDS: Docusate 100mg cap ORAL SCH ×2 (08:32→17:49)
[2017-11-07] MEDS: Multivitamin w/Minerals tab ORAL SCH (08:33)
[2017-11-07] MEDS: Vitamin B-12 500mcg tab ORAL SCH (08:33)
[2017-11-07] MEDS: Lyrica 50mg cap ORAL SCH (08:33)
[2017-11-07] MEDS: Metoprolol Succinate XL 25mg tab ORAL SCH (09:00)
--- NOTE | 2017-11-07 09:32 | Pulmonology Progress Note ---
Assessment/Plan Assessment/Plan IMPRESSION: 1. Status post fall. 2. Cough with phlegm production. 3. Congestive heart failure. 4. Troponin leak. 5. Cognitive impairment. 6. Pulm fibrosis DISCUSSION: Continue home medications. Has LVEF 55-60% on ECHO. Will hold coumadin due to hematuria Seen by urology CT with GG infiltrates and pulm HTN suggests long-standing process nasal O2 PT eval Continue diuresus BiPAP q pm Dc planning to home Will discuss with family Chris Guerrero M.D. Subjective Interval Events: Hematuria resolving; slow dfrift in Hgb. Awake and responsive ; was on BiPAP Constitutional: Reports: no symptoms HEENT: Repors: no symptoms Respiratory: Reports: no symptoms Cardiovascular: Reports: no symptoms Genitourinary: Reports: no symptoms Allergies: Coded Allergies: No Known Allergies (Unverified , 12/21/15) Objective Last 24 Hour Vital Signs Date Time Temp Pulse Resp B/P (MAP) Pulse Ox O2 Delivery O2 Flow Rate FiO2 11/07/17 08:00 97.9 96 25 98/41 99 Bi-pap 30 97.9 11/07/17 08:00 30 11/07/17 08:00 92 11/07/17 07:26 30 11/07/17 07:26 102 23 99 Nasal Cannula 3.0 30 11/07/17 07:17 104 23 99 Venturi Mask 10.0 45 11/07/17 07:17 100 Venturi Mask 10.0 45 11/07/17 07:17 Venturi Mask 10.0 45 11/07/17 05:26 94 17 96 Facial 30 11/07/17 04:00 97.5 93 19 122/71 96 Bi-pap 30 97.5 11/07/17 04:00 30 11/07/17 03:54 101 11/07/17 03:23 94 18 98 Bi-pap 30 11/07/17 03:03 91 18 97 Bi-pap 30 11/07/17 03:01 91 18 97 Facial 30 11/07/17 00:39 91 17 96 Facial 30 11/07/17 00:00 30 11/07/17 00:00 97.5 94 33 113/59 95 Bi-pap 30 97.5 11/07/17 00:00 115 11/06/17 23:00 30 11/06/17 22:58 102 25 97 Facial 30 11/06/17 22:50 100 22 98 Venturi Mask 8.0 40 11/06/17 22:36 100 22 98 Venturi Mask 8.0 40 11/06/17 20:00 97.5 94 20 131/70 97 Venturi Mask 40 97.5 11/06/17 20:00 14.0 50 11/06/17 19:49 100 20 100 Venturi Mask 8.0 40 11/06/17 19:42 Venturi Mask 12.0 45 11/06/17 19:42 94 24 98 Venturi Mask 12.0 45 11/06/17 19:41 98 Venturi Mask 12.0 45 11/06/17 19:06 95 11/06/17 16:00 14.0 50 11/06/17 16:00 103 11/06/17 16:00 97.9 105 22 124/60 97 Venturi Mask 50 97.9 11/06/17 15:08 98 20 100 Venturi Mask 45 11/06/17 15:00 101 18 99 Venturi Mask 45 11/06/17 14:20 97.6 11/06/17 13:31 97.6 11/06/17 12:50 108 11/06/17 12:29 97.6 112 20 137/72 95 Venturi Mask 50 97.6 11/06/17 12:00 97.6 112 20 137/72 95 Venturi Mask 50 97.6 11/06/17 12:00 14.0 50 11/06/17 10:55 105 20 100 Venturi Mask 45 11/06/17 10:50 98 18 99 Venturi Mask 45 Intake and Output 11/06/17 11/07/17 19:00 07:00 Intake Total 725 ml 355 ml Output Total 600 ml 500 ml Balance 125 ml -145 ml Intake Oral 670 ml 300 ml IV Total 55 ml 55 ml Output Urine Total 600 ml 500 ml General Appearance: no acute distress HEENT: normocephalic Respiratory/Chest: chest wall non-tender, crackles/rales Cardiovascular: normal peripheral pulses, normal rate Abdomen: normal bowel sounds Microbiology Date/Time Source Procedure Growth Status 11/06/17 15:30 Indwelling Cath Urine Culture - Preliminary NO GROWTH Resulted 11/05/17 12:05 Indwelling Cath Urine Culture - Preliminary Mixed Gram Positive Organism Resulted Laboratory Tests 11/07/17 05:05: White Blood Count 8.0, Red Blood Count 3.69L, Hemoglobin 11.8L, Hematocrit 37.2L , Mean Corpuscular Volume 101H, Mean Corpuscular Hemoglobin 32.1H, Mean Corpuscular Hemoglobin Concent 31.8L, Red Cell Distribution Width 17.2H, Platelet Count 140L, Mean Platelet Volume 8.9, Neutrophils (%) (Auto) 61.6, Lymphocytes (%) (Auto) 20.8, Monocytes (%) (Auto) 11.0H, Eosinophils (%) (Auto) 5.4H, Basophils (%) (Auto) 1.1, Prothrombin Time 24.7H, Prothromb Time International Ratio 2.3H, Sodium Level 141, Potassium Level 3.8, Chloride Level 99, Carbon Dioxide Level 38H, Anion Gap 4L, Blood Urea Nitrogen 22H, Creatinine 1.1, Estimat Glomerular Filtration Rate , Glucose Level 79, Calcium Level 9.3 Current Medications Medications (Trade) Dose Ordered Sig/Abhishek Route PRN Reason Start Time Stop Time Status Last Admin Dose Admin Acetaminophen (Tylenol) 650 mg Q4H PRN ORAL Mild Pain/Temp > 100.5 11/05/17 16:15 12/05/17 16:14 Acetaminophen/ Hydrocodone Bitart ([place] 5/325) 1 tab Q4H PRN ORAL Severe Pain (Pain Scale 7-10) 11/05/17 16:15 11/12/17 16:14 11/06/17 13:31 Albuterol/ Ipratropium (Albuterol/ Ipratropium) 3 ml Q4HRT HHN 11/05/17 11:45 11/07/17 14:29 11/07/17 07:12 Atorvastatin Calcium (Lipitor) 20 mg BEDTIME ORAL 11/02/17 21:00 12/02/17 20:59 11/06/17 21:43 Cefazolin Sodium 1 gm/Sodium Chloride 55 ml @ 110 mls/hr Q8HR IVPB 11/05/17 21:00 11/12/17 20:59 11/07/17 06:22 Cyanocobalamin (Vitamin B-12) 2,500 mcg DAILY ORAL 11/02/17 09:00 12/02/17 08:59 11/07/17 08:33 Dextrose (Dextrose 50%) STAT PRN IV Hypoglycemia 11/01/17 17:00 12/01/17 16:59 Docusate Sodium (Colace) 100 mg TWICE A DAY ORAL 11/02/17 18:00 12/02/17 17:59 11/07/17 08:32 Finasteride (Proscar) 5 mg QHS ORAL 11/05/17 20:00 12/05/17 19:59 11/06/17 21:43 Glipizide (Glucotrol) 5 mg BIAC ORAL 11/02/17 06:30 12/02/17 06:29 11/07/17 06:23 Metoprolol Succinate (Toprol XL) 25 mg DAILY ORAL 11/02/17 09:00 12/02/17 08:59 11/06/17 09:27 Metoprolol Tartrate (Lopressor) 2.5 mg Q4H PRN IVP For High Blood Pressure 11/02/17 00:30 12/02/17 00:29 Multivitamins Therapeutic (Therapeutic Multivitamin) 1 ea DAILY ORAL 11/02/17 09:00 12/02/17 08:59 11/07/17 08:33 Potassium Chloride (K-Dur) 10 meq DAILY ORAL 11/02/17 09:00 12/02/17 08:59 11/07/17 08:33 Pregabalin (Lyrica) 50 mg DAILY ORAL 11/02/17 09:00 12/02/17 08:59 11/07/17 08:33 Warfarin Sodium (Coumadin per pharmacy) 1 ea DAILY PRN MISC Per rx protocol 11/01/17 18:00 12/01/17 17:59 Warfarin Sodium (Coumadin) 4 mg COUMADIN ONCE PO 11/07/17 17:00 11/07/17 17:01 Chris Guerrero MD Nov 07, 2017 09:32
[2017-11-07 12:00] VITALS: BP 109/53
[2017-11-07 16:00] VITALS: BP 114/60
[2017-11-07] MEDS ORDERED: Warfarin Sodium 4mg PO ONE (17:00)
--- NOTE | 2017-11-07 19:24 | Cardiology Progress Note ---
Assessment/Plan Assessment/Plan 1. Fall. 2. Cough with purulent sputum. 3. Possible heart failure. 4. Abnormal cardiac enzymes demand related 5. Thrombocytopenia 6. pulm htn 7. ? pulm fibrosis echo shows normal wall motion ekg no st t wave abn trop min abn likely demand related no peak no hermilo to suggest a coronary syndrome crackles sound coarse bicarb better still with pulm finding resume diuretic in am po dc planning noted Subjective Cardiovascular: Denies: chest pain, lightheadedness, palpitations Respiratory: Denies: shortness of breath Gastrointestinal/Abdominal: Denies: abdominal pain Genitourinary: Denies: burning Subjective betetr Objective Last 24 Hour Vital Signs Date Time Temp Pulse Resp B/P (MAP) Pulse Ox O2 Delivery O2 Flow Rate FiO2 11/07/17 19:11 97 Nasal Cannula 3.0 32 11/07/17 19:11 Nasal Cannula 3.0 32 11/07/17 16:00 96 11/07/17 16:00 3.0 11/07/17 16:00 98.1 97 18 114/60 100 Nasal Cannula 3.0 98.1 11/07/17 12:00 97.4 99 20 109/53 95 Nasal Cannula 3.0 97.4 11/07/17 12:00 3.0 11/07/17 12:00 97 11/07/17 11:12 100 20 99 Nasal Cannula 3.0 11/07/17 11:03 100 20 96 Nasal Cannula 3.0 11/07/17 09:00 100 98/41 11/07/17 08:00 97.9 96 25 98/41 99 Bi-pap 30 97.9 11/07/17 08:00 30 11/07/17 08:00 92 11/07/17 07:26 30 11/07/17 07:26 102 23 99 Nasal Cannula 3.0 30 11/07/17 07:17 104 23 99 Venturi Mask 10.0 45 11/07/17 07:17 100 Venturi Mask 10.0 45 11/07/17 07:17 Venturi Mask 10.0 45 11/07/17 05:26 94 17 96 Facial 30 11/07/17 04:00 97.5 93 19 122/71 96 Bi-pap 30 97.5 11/07/17 04:00 30 11/07/17 03:54 101 11/07/17 03:23 94 18 98 Bi-pap 30 11/07/17 03:03 91 18 97 Bi-pap 30 11/07/17 03:01 91 18 97 Facial 30 11/07/17 00:39 91 17 96 Facial 30 11/07/17 00:00 30 11/07/17 00:00 97.5 94 33 113/59 95 Bi-pap 30 97.5 11/07/17 00:00 115 11/06/17 23:00 30 11/06/17 22:58 102 25 97 Facial 30 11/06/17 22:50 100 22 98 Venturi Mask 8.0 40 11/06/17 22:36 100 22 98 Venturi Mask 8.0 40 11/06/17 20:00 97.5 94 20 131/70 97 Venturi Mask 40 97.5 11/06/17 20:00 14.0 50 11/06/17 19:49 100 20 100 Venturi Mask 8.0 40 11/06/17 19:42 Venturi Mask 12.0 45 11/06/17 19:42 94 24 98 Venturi Mask 12.0 45 11/06/17 19:41 98 Venturi Mask 12.0 45 General Appearance: no apparent distress, alert Neck: supple Cardiovascular: irregularly irregular Respiratory/Chest: crackles/rales Abdomen: normal bowel sounds, non tender, soft Extremities: no swelling Intake and Output 11/06/17 11/07/17 19:00 07:00 Intake Total 725 ml 355 ml Output Total 600 ml 500 ml Balance 125 ml -145 ml Intake Oral 670 ml 300 ml IV Total 55 ml 55 ml Output Urine Total 600 ml 500 ml Laboratory Tests Test 11/07/17 05:05 White Blood Count 8.0 K/UL (4.8-10.8) Red Blood Count 3.69 M/UL (4.70-6.10) L Hemoglobin 11.8 G/DL (14.2-18.0) L Hematocrit 37.2 % (42.0-52.0) L Mean Corpuscular Volume 101 FL (80-99) H Mean Corpuscular Hemoglobin 32.1 PG (27.0-31.0) H Mean Corpuscular Hemoglobin Concent 31.8 G/DL (32.0-36.0) L Red Cell Distribution Width 17.2 % (11.6-14.8) H Platelet Count 140 K/UL (150-450) L Mean Platelet Volume 8.9 FL (6.5-10.1) Neutrophils (%) (Auto) 61.6 % (45.0-75.0) Lymphocytes (%) (Auto) 20.8 % (20.0-45.0) Monocytes (%) (Auto) 11.0 % (1.0-10.0) H Eosinophils (%) (Auto) 5.4 % (0.0-3.0) H Basophils (%) (Auto) 1.1 % (0.0-2.0) Prothrombin Time 24.7 SEC (9.30-11.50) H Prothromb Time International Ratio 2.3 (0.9-1.1) H Sodium Level 141 MMOL/L (136-145) Potassium Level 3.8 MMOL/L (3.5-5.1) Chloride Level 99 MMOL/L (98-107) Carbon Dioxide Level 38 MMOL/L (21-32) H Anion Gap 4 mmol/L (5-15) L Blood Urea Nitrogen 22 mg/dL (7-18) H Creatinine 1.1 MG/DL (0.55-1.30) Estimat Glomerular Filtration Rate mL/min (>60) Glucose Level 79 MG/DL (74-106) Calcium Level 9.3 MG/DL (8.5-10.1) Microbiology Date/Time Source Procedure Growth Status 11/06/17 15:30 Indwelling Cath Urine Culture - Preliminary NO GROWTH Resulted 11/05/17 12:05 Indwelling Cath Urine Culture - Preliminary Mixed Gram Positive Organism Resulted NAOMIE DO Nov 07, 2017 19:24
[2017-11-07 20:00] VITALS: BP 121/60
[2017-11-07] MEDS: Atorvastatin 20mg tab ORAL SCH (20:22)
[2017-11-08] VITALS: BP 113/75
[2017-11-08 04:00] VITALS: BP 140/60
[2017-11-08] MEDS: GlipiZIDE 5mg tab ORAL SCH ×2 (05:44→16:41)
[2017-11-08] MEDS: ceFAZolin sod 1 GM in NS 55 ML IVPB SCH ×3 (05:46→21:11)
[2017-11-08 08:00] VITALS: BP 113/66
[2017-11-08] MEDS: Docusate 100mg cap ORAL SCH ×2 (09:25→17:48)
[2017-11-08] MEDS: Vitamin B-12 500mcg tab ORAL SCH (09:26)
[2017-11-08] MEDS: Metoprolol Succinate XL 25mg tab ORAL SCH (09:26)
[2017-11-08] MEDS: Lyrica 50mg cap ORAL SCH (09:26)
[2017-11-08] MEDS: Multivitamin w/Minerals tab ORAL SCH (09:26)
[2017-11-08 12:00] VITALS: BP 119/62
--- NOTE | 2017-11-08 14:46 | Pulmonology Progress Note ---
Assessment/Plan Assessment/Plan 1. Status post fall. 2. Cough with phlegm production. 3. Congestive heart failure. 4. Troponin leak. 5. Cognitive impairment. 6. Gross hematuria 7. Severe pulm HTN 8. Prob pulm fibrosis Gross hematuria resolved INR 2.0, off coumadin urology following nasal O2 not able to ambulate disc w dc plan to snf Subjective Respiratory: Denies: productive cough, shortness of breath Allergies: Coded Allergies: No Known Allergies (Unverified , 12/21/15) Objective Last 24 Hour Vital Signs Date Time Temp Pulse Resp B/P (MAP) Pulse Ox O2 Delivery O2 Flow Rate FiO2 11/08/17 12:00 5.0 11/08/17 11:46 95 11/08/17 09:26 103 113/66 11/08/17 08:07 Nasal Cannula 3.0 32 11/08/17 08:06 99 Nasal Cannula 3.0 32 11/08/17 08:00 99.1 103 20 113/66 99 Nasal Cannula 5.0 99.1 11/08/17 08:00 5.0 11/08/17 07:45 94 11/08/17 04:00 95 11/08/17 04:00 97.7 99 24 140/60 95 Nasal Cannula 3.0 97.7 11/08/17 04:00 3.0 11/08/17 00:00 97.8 103 20 113/75 96 Nasal Cannula 3.0 97.8 11/08/17 00:00 104 11/07/17 21:31 104 31 95 Facial 30 11/07/17 20:02 98 11/07/17 20:00 3.0 11/07/17 20:00 97.5 94 20 121/60 97 Nasal Cannula 3.0 97.5 11/07/17 19:11 97 Nasal Cannula 3.0 32 11/07/17 19:11 Nasal Cannula 3.0 32 11/07/17 16:00 96 11/07/17 16:00 3.0 11/07/17 16:00 98.1 97 18 114/60 100 Nasal Cannula 3.0 98.1 Intake and Output 11/07/17 11/08/17 19:00 07:00 Intake Total 455 ml 270 ml Output Total 750 ml 550 ml Balance -295 ml -280 ml Intake Oral 400 ml 50 ml IV Total 55 ml 220 ml Output Urine Total 750 ml 550 ml General Appearance: no acute distress HEENT: atraumatic Respiratory/Chest: crackles/rales Cardiovascular: normal rate Microbiology Date/Time Source Procedure Growth Status 11/06/17 15:30 Indwelling Cath Urine Culture - Preliminary NO GROWTH AFTER 24 HOURS Resulted Laboratory Tests 11/08/17 04:45: Prothrombin Time 21.3H, Prothromb Time International Ratio 2.0H Current Medications Medications (Trade) Dose Ordered Sig/Abhishek Route PRN Reason Start Time Stop Time Status Last Admin Dose Admin Acetaminophen (Tylenol) 650 mg Q4H PRN ORAL Mild Pain/Temp > 100.5 11/05/17 16:15 12/05/17 16:14 Acetaminophen/ Hydrocodone Bitart ([place] 5/325) 1 tab Q4H PRN ORAL Severe Pain (Pain Scale 7-10) 11/05/17 16:15 11/12/17 16:14 11/06/17 13:31 Atorvastatin Calcium (Lipitor) 20 mg BEDTIME ORAL 11/02/17 21:00 12/02/17 20:59 11/07/17 20:22 Cefazolin Sodium 1 gm/Sodium Chloride 55 ml @ 110 mls/hr Q8HR IVPB 11/05/17 21:00 11/12/17 20:59 11/08/17 13:51 Cyanocobalamin (Vitamin B-12) 2,500 mcg DAILY ORAL 11/02/17 09:00 12/02/17 08:59 11/08/17 09:26 Dextrose (Dextrose 50%) STAT PRN IV Hypoglycemia 11/01/17 17:00 12/01/17 16:59 Docusate Sodium (Colace) 100 mg TWICE A DAY ORAL 11/02/17 18:00 12/02/17 17:59 11/08/17 09:25 Finasteride (Proscar) 5 mg QHS ORAL 11/05/17 20:00 12/05/17 19:59 11/07/17 20:23 Glipizide (Glucotrol) 5 mg BIAC ORAL 11/02/17 06:30 12/02/17 06:29 11/08/17 05:44 Metoprolol Succinate (Toprol XL) 25 mg DAILY ORAL 11/02/17 09:00 12/02/17 08:59 11/08/17 09:26 Metoprolol Tartrate (Lopressor) 2.5 mg Q4H PRN IVP For High Blood Pressure 11/02/17 00:30 12/02/17 00:29 Multivitamins Therapeutic (Therapeutic Multivitamin) 1 ea DAILY ORAL 11/02/17 09:00 12/02/17 08:59 11/08/17 09:26 Potassium Chloride (K-Dur) 10 meq DAILY ORAL 11/02/17 09:00 12/02/17 08:59 11/08/17 09:25 Pregabalin (Lyrica) 50 mg DAILY ORAL 11/02/17 09:00 12/02/17 08:59 11/08/17 09:26 BEAU QUINTANILLA Nov 08, 2017 14:45
[2017-11-08 16:00] VITALS: BP 129/65
--- NOTE | 2017-11-08 19:07 | Cardiology Progress Note ---
Assessment/Plan Assessment/Plan 1. Fall. 2. Cough with purulent sputum. 3. Possible heart failure. 4. Abnormal cardiac enzymes demand related 5. Thrombocytopenia 6. pulm htn 7. ? pulm fibrosis echo shows normal wall motion ekg no st t wave abn trop min abn likely demand related no peak no hermilo to suggest a coronary syndrome crackles sound coarse still with pulm finding lasix 20 mg dialy po Subjective Cardiovascular: Denies: chest pain Respiratory: Denies: shortness of breath Gastrointestinal/Abdominal: Denies: abdominal pain Genitourinary: Denies: burning Subjective betetr Objective Last 24 Hour Vital Signs Date Time Temp Pulse Resp B/P (MAP) Pulse Ox O2 Delivery O2 Flow Rate FiO2 11/08/17 16:02 96 11/08/17 16:00 96.6 91 20 129/65 97 Nasal Cannula 5.0 96.6 11/08/17 16:00 5.0 11/08/17 12:00 5.0 11/08/17 12:00 98.0 105 19 119/62 99 Nasal Cannula 5.0 98.0 11/08/17 11:46 95 11/08/17 09:26 103 113/66 11/08/17 08:07 Nasal Cannula 3.0 32 11/08/17 08:06 99 Nasal Cannula 3.0 32 11/08/17 08:00 99.1 103 20 113/66 99 Nasal Cannula 5.0 99.1 11/08/17 08:00 5.0 11/08/17 07:45 94 11/08/17 04:00 95 11/08/17 04:00 97.7 99 24 140/60 95 Nasal Cannula 3.0 97.7 11/08/17 04:00 3.0 11/08/17 00:00 97.8 103 20 113/75 96 Nasal Cannula 3.0 97.8 11/08/17 00:00 104 11/07/17 21:31 104 31 95 Facial 30 11/07/17 20:02 98 11/07/17 20:00 3.0 11/07/17 20:00 97.5 94 20 121/60 97 Nasal Cannula 3.0 97.5 11/07/17 19:11 97 Nasal Cannula 3.0 32 11/07/17 19:11 Nasal Cannula 3.0 32 General Appearance: alert Neck: supple Cardiovascular: irregularly irregular Respiratory/Chest: crackles/rales Abdomen: normal bowel sounds, non tender, soft Extremities: no swelling Intake and Output 11/07/17 11/08/17 19:00 07:00 Intake Total 455 ml 270 ml Output Total 750 ml 550 ml Balance -295 ml -280 ml Intake Oral 400 ml 50 ml IV Total 55 ml 220 ml Output Urine Total 750 ml 550 ml Laboratory Tests Test 11/08/17 04:45 Prothrombin Time 21.3 SEC (9.30-11.50) H Prothromb Time International Ratio 2.0 (0.9-1.1) H Microbiology Date/Time Source Procedure Growth Status 11/06/17 15:30 Indwelling Cath Urine Culture - Preliminary NO GROWTH AFTER 24 HOURS Resulted NAOMIE DO Nov 08, 2017 19:06
[2017-11-08 20:04] VITALS: BP 138/68
[2017-11-08] MEDS: Atorvastatin 20mg tab ORAL SCH (21:11)
[2017-11-09 00:03] VITALS: BP 105/64
[2017-11-09 04:02] VITALS: BP 127/58
[2017-11-09 05:36] LABS: EOSINOPHILS % (AUTO) 6.2 % (0.0-3.0); HEMATOCRIT 38.5 % (42.0-52.0); HEMOGLOBIN 12.1 G/DL (14.2-18.0); LYMPHOCYTES % (AUTO) 23.3 % (20.0-45.0); MEAN CORPUSCULAR VOLUME 101 FL (80-99); MONOCYTES % (AUTO) 10.4 % (1.0-10.0); NEUTROPHILS % (AUTO) 59.2 % (45.0-75.0); PLATELET COUNT 134 K/UL (150-450); RED BLOOD COUNT 3.83 M/UL (4.70-6.10); RED CELL DISTRIBUTION WIDTH 16.9 % (11.6-14.8); WHITE BLOOD COUNT 8.8 K/UL (4.8-10.8)
[2017-11-09 05:40] LABS: INR 1.5 (0.9-1.1)
[2017-11-09] MEDS: GlipiZIDE 5mg tab ORAL SCH ×2 (06:01→17:13)
[2017-11-09] MEDS: ceFAZolin sod 1 GM in NS 55 ML IVPB SCH ×3 (06:02→21:21)
[2017-11-09 06:04] LABS: ALANINE AMINOTRANSFERASE 15 U/L (12-78); ALBUMIN 2.7 G/DL (3.4-5.0); ALBUMIN/GLOBULIN RATIO 0.6 (1.0-2.7); ALKALINE PHOSPHATASE 93 U/L (46-116); ANION GAP 0 mmol/L (5-15); ASPARTATE AMINO TRANSFERASE 24 U/L (15-37); BILIRUBIN,TOTAL 0.7 MG/DL (0.2-1.0); BLOOD UREA NITROGEN 15 mg/dL (7-18); CALCIUM 9.1 MG/DL (8.5-10.1); CARBON DIOXIDE 36 MMOL/L (21-32); CHLORIDE 103 MMOL/L (98-107); CREATININE 0.9 MG/DL (0.55-1.30); POTASSIUM 4.4 MMOL/L (3.5-5.1); SODIUM 139 MMOL/L (136-145)
[2017-11-09 08:00] VITALS: BP 111/64
[2017-11-09] MEDS: Multivitamin w/Minerals tab ORAL SCH (08:50)
[2017-11-09] MEDS: Docusate 100mg cap ORAL SCH ×2 (08:51→17:13)
[2017-11-09] MEDS: Lyrica 50mg cap ORAL SCH (08:51)
[2017-11-09] MEDS: Metoprolol Succinate XL 25mg tab ORAL SCH (08:52)
--- NOTE | 2017-11-09 09:15 | Diagnostic Imaging Report ---
Indication: Reason For Exam: SOB Technique: XRAY Chest 1v Comparison:11/01/2017 Findings: The heart remains enlarged. Pulmonary vascular distribution is again seen. Bilateral interstitial disease and patchy airspace infiltrates remain unchanged. The aorta is calcified. Degenerative changes noted in the spine. Impression: Cardiomegaly with evidence of congestive heart failure, unchanged from previous study. Much of this is chronic is uncertain.
--- NOTE | 2017-11-09 09:47 | Pulmonology Progress Note ---
Assessment/Plan Assessment/Plan IMPRESSION: 1. Status post fall. 2. Cough with phlegm production. 3. Congestive heart failure. 4. Troponin leak. 5. Cognitive impairment. 6. Pulm fibrosis DISCUSSION: Continue home medications. Has LVEF 55-60% on ECHO. Will hold coumadin due to hematuria Seen by urology CT with GG infiltrates and pulm HTN suggests long-standing process nasal O2 PT eval Continue diuresus BiPAP q pm Dc planning to home Discussed with family SNF on Saturday Chris Guerrero M.D. Subjective Interval Events: Better; HCO3 trending down Constitutional: Reports: no symptoms HEENT: Repors: no symptoms Respiratory: Reports: no symptoms Cardiovascular: Reports: no symptoms Allergies: Coded Allergies: No Known Allergies (Unverified , 12/21/15) Objective Last 24 Hour Vital Signs Date Time Temp Pulse Resp B/P (MAP) Pulse Ox O2 Delivery O2 Flow Rate FiO2 11/09/17 08:52 107 111/64 11/09/17 04:02 97.5 92 19 127/58 98 Nasal Cannula 97.5 11/09/17 04:00 99 11/09/17 04:00 3.0 11/09/17 00:03 97.5 84 20 105/64 97 Room Air 97.5 11/09/17 00:00 3.0 11/09/17 00:00 96 11/08/17 20:04 96.6 98 19 138/68 96 Nasal Cannula 96.6 11/08/17 20:00 95 11/08/17 20:00 3.0 11/08/17 19:29 99 Nasal Cannula 2.0 28 11/08/17 19:29 Nasal Cannula 2.0 28 11/08/17 16:02 96 11/08/17 16:00 96.6 91 20 129/65 97 Nasal Cannula 5.0 96.6 11/08/17 16:00 5.0 11/08/17 12:00 5.0 11/08/17 12:00 98.0 105 19 119/62 99 Nasal Cannula 5.0 98.0 11/08/17 11:46 95 Intake and Output 11/08/17 11/09/17 19:00 07:00 Intake Total 527 ml 350 ml Output Total 600 ml 750 ml Balance -73 ml -400 ml Intake Oral 472 ml 240 ml IV Total 55 ml 110 ml Output Urine Total 600 ml 750 ml General Appearance: no acute distress HEENT: normocephalic Respiratory/Chest: chest wall non-tender, crackles/rales Cardiovascular: normal peripheral pulses, normal rate Abdomen: normal bowel sounds Microbiology Date/Time Source Procedure Growth Status 11/06/17 15:30 Indwelling Cath Urine Culture - Final NO GROWTH AFTER 48 HOURS Complete Laboratory Tests 11/09/17 04:10: White Blood Count 8.8, Red Blood Count 3.83L, Hemoglobin 12.1L, Hematocrit 38.5L , Mean Corpuscular Volume 101H, Mean Corpuscular Hemoglobin 31.5H, Mean Corpuscular Hemoglobin Concent 31.3L, Red Cell Distribution Width 16.9H, Platelet Count 134L, Mean Platelet Volume 9.5, Neutrophils (%) (Auto) 59.2, Lymphocytes (%) (Auto) 23.3, Monocytes (%) (Auto) 10.4H, Eosinophils (%) (Auto) 6.2H, Basophils (%) (Auto) 1.0, Prothrombin Time 15.6H, Prothromb Time International Ratio 1.5H, Sodium Level 139, Potassium Level 4.4, Chloride Level 103, Carbon Dioxide Level 36H, Anion Gap 0L, Blood Urea Nitrogen 15, Creatinine 0.9, Estimat Glomerular Filtration Rate , Glucose Level 87, Calcium Level 9.1, Total Bilirubin 0.7, Aspartate Amino Transf (AST/SGOT) 24, Alanine Aminotransferase (ALT/SGPT) 15, Alkaline Phosphatase 93, Total Protein 7.3, Albumin 2.7L, Globulin 4.6, Albumin/Globulin Ratio 0.6L, Prostate Specific Antigen < 0.10L Current Medications Medications (Trade) Dose Ordered Sig/Abhishek Route PRN Reason Start Time Stop Time Status Last Admin Dose Admin Acetaminophen (Tylenol) 650 mg Q4H PRN ORAL Mild Pain/Temp > 100.5 11/05/17 16:15 12/05/17 16:14 Acetaminophen/ Hydrocodone Bitart ([place] 5/325) 1 tab Q4H PRN ORAL Severe Pain (Pain Scale 7-10) 11/05/17 16:15 11/12/17 16:14 11/06/17 13:31 Atorvastatin Calcium (Lipitor) 20 mg BEDTIME ORAL 11/02/17 21:00 12/02/17 20:59 11/08/17 21:11 Cefazolin Sodium 1 gm/Sodium Chloride 55 ml @ 110 mls/hr Q8HR IVPB 11/05/17 21:00 11/12/17 20:59 11/09/17 06:02 Cyanocobalamin (Vitamin B-12) 2,500 mcg DAILY ORAL 11/02/17 09:00 12/02/17 08:59 11/08/17 09:26 Dextrose (Dextrose 50%) STAT PRN IV Hypoglycemia 11/01/17 17:00 12/01/17 16:59 Docusate Sodium (Colace) 100 mg TWICE A DAY ORAL 11/02/17 18:00 12/02/17 17:59 11/09/17 08:51 Finasteride (Proscar) 5 mg QHS ORAL 11/05/17 20:00 12/05/17 19:59 11/08/17 21:11 Furosemide (Lasix) 20 mg DAILY ORAL 11/09/17 09:00 12/09/17 08:59 11/09/17 08:50 Glipizide (Glucotrol) 5 mg BIAC ORAL 11/02/17 06:30 12/02/17 06:29 11/09/17 06:01 Metoprolol Succinate (Toprol XL) 25 mg DAILY ORAL 11/02/17 09:00 12/02/17 08:59 11/09/17 08:52 Metoprolol Tartrate (Lopressor) 2.5 mg Q4H PRN IVP For High Blood Pressure 11/02/17 00:30 12/02/17 00:29 Multivitamins Therapeutic (Therapeutic Multivitamin) 1 ea DAILY ORAL 11/02/17 09:00 12/02/17 08:59 11/09/17 08:50 Potassium Chloride (K-Dur) 10 meq DAILY ORAL 11/02/17 09:00 12/02/17 08:59 11/09/17 08:51 Pregabalin (Lyrica) 50 mg DAILY ORAL 11/02/17 09:00 12/02/17 08:59 11/09/17 08:51 Chris Guerrero MD Nov 09, 2017 09:47
[2017-11-09] MEDS: Vitamin B-12 500mcg tab ORAL SCH (10:25)
[2017-11-09 12:00] VITALS: BP 119/66
--- NOTE | 2017-11-09 12:18 | Urology Progress Note ---
Assessment/Plan Assessment/Plan 1. Gross hematuria secondary to Chamberlain which is slowly resolving. 2. Benign prostatic hypertrophy. 3. Urinary retention. 4. Probable neurogenic bladder. 5. Pyuria. 6. Proteinuria. monitor clinically chamberlain hand irrigated, minimal clots cath secured to pt's leg hand irrigate PRN proscar added empiric abx, stop soon consider renal imaging, u/s or CT Subjective Allergies: Coded Allergies: No Known Allergies (Unverified , 12/21/15) Subjective all noted, more alert Objective Last 24 Hour Vital Signs Date Time Temp Pulse Resp B/P (MAP) Pulse Ox O2 Delivery O2 Flow Rate FiO2 11/09/17 08:52 107 111/64 11/09/17 08:17 Nasal Cannula 2.0 28 11/09/17 08:17 99 Nasal Cannula 2.0 28 11/09/17 08:00 98.0 95 19 111/64 98 Nasal Cannula 3.0 98.0 11/09/17 08:00 86 11/09/17 04:02 97.5 92 19 127/58 98 Nasal Cannula 97.5 11/09/17 04:00 99 11/09/17 04:00 3.0 11/09/17 00:03 97.5 84 20 105/64 97 Room Air 97.5 11/09/17 00:00 3.0 11/09/17 00:00 96 11/08/17 20:04 96.6 98 19 138/68 96 Nasal Cannula 96.6 11/08/17 20:00 95 11/08/17 20:00 3.0 11/08/17 19:29 99 Nasal Cannula 2.0 28 11/08/17 19:29 Nasal Cannula 2.0 28 11/08/17 16:02 96 11/08/17 16:00 96.6 91 20 129/65 97 Nasal Cannula 5.0 96.6 11/08/17 16:00 5.0 Intake and Output 11/08/17 11/09/17 19:00 07:00 Intake Total 527 ml 350 ml Output Total 600 ml 750 ml Balance -73 ml -400 ml Intake Oral 472 ml 240 ml IV Total 55 ml 110 ml Output Urine Total 600 ml 750 ml Microbiology Date/Time Source Procedure Growth Status 11/06/17 15:30 Indwelling Cath Urine Culture - Final NO GROWTH AFTER 48 HOURS Complete Current Medications Medications (Trade) Dose Ordered Sig/Abhishek Route PRN Reason Start Time Stop Time Status Last Admin Dose Admin Acetaminophen (Tylenol) 650 mg Q4H PRN ORAL Mild Pain/Temp > 100.5 11/05/17 16:15 12/05/17 16:14 Acetaminophen/ Hydrocodone Bitart ([place] 5/325) 1 tab Q4H PRN ORAL Severe Pain (Pain Scale 7-10) 11/05/17 16:15 11/12/17 16:14 11/06/17 13:31 Atorvastatin Calcium (Lipitor) 20 mg BEDTIME ORAL 11/02/17 21:00 12/02/17 20:59 11/08/17 21:11 Cefazolin Sodium 1 gm/Sodium Chloride 55 ml @ 110 mls/hr Q8HR IVPB 11/05/17 21:00 11/12/17 20:59 11/09/17 06:02 Cyanocobalamin (Vitamin B-12) 2,500 mcg DAILY ORAL 11/02/17 09:00 12/02/17 08:59 11/09/17 10:25 Dextrose (Dextrose 50%) STAT PRN IV Hypoglycemia 11/01/17 17:00 12/01/17 16:59 Docusate Sodium (Colace) 100 mg TWICE A DAY ORAL 11/02/17 18:00 12/02/17 17:59 11/09/17 08:51 Finasteride (Proscar) 5 mg QHS ORAL 11/05/17 20:00 12/05/17 19:59 11/08/17 21:11 Furosemide (Lasix) 20 mg DAILY ORAL 11/09/17 09:00 12/09/17 08:59 11/09/17 08:50 Glipizide (Glucotrol) 5 mg BIAC ORAL 11/02/17 06:30 12/02/17 06:29 11/09/17 06:01 Metoprolol Succinate (Toprol XL) 25 mg DAILY ORAL 11/02/17 09:00 12/02/17 08:59 11/09/17 08:52 Metoprolol Tartrate (Lopressor) 2.5 mg Q4H PRN IVP For High Blood Pressure 11/02/17 00:30 12/02/17 00:29 Multivitamins Therapeutic (Therapeutic Multivitamin) 1 ea DAILY ORAL 11/02/17 09:00 12/02/17 08:59 11/09/17 08:50 Potassium Chloride (K-Dur) 10 meq DAILY ORAL 11/02/17 09:00 12/02/17 08:59 11/09/17 08:51 Pregabalin (Lyrica) 50 mg DAILY ORAL 11/02/17 09:00 12/02/17 08:59 11/09/17 08:51 Laboratory Tests 11/09/17 04:10: White Blood Count 8.8, Red Blood Count 3.83L, Hemoglobin 12.1L, Hematocrit 38.5L , Mean Corpuscular Volume 101H, Mean Corpuscular Hemoglobin 31.5H, Mean Corpuscular Hemoglobin Concent 31.3L, Red Cell Distribution Width 16.9H, Platelet Count 134L, Mean Platelet Volume 9.5, Neutrophils (%) (Auto) 59.2, Lymphocytes (%) (Auto) 23.3, Monocytes (%) (Auto) 10.4H, Eosinophils (%) (Auto) 6.2H, Basophils (%) (Auto) 1.0, Prothrombin Time 15.6H, Prothromb Time International Ratio 1.5H, Sodium Level 139, Potassium Level 4.4, Chloride Level 103, Carbon Dioxide Level 36H, Anion Gap 0L, Blood Urea Nitrogen 15, Creatinine 0.9, Estimat Glomerular Filtration Rate , Glucose Level 87, Calcium Level 9.1, Total Bilirubin 0.7, Aspartate Amino Transf (AST/SGOT) 24, Alanine Aminotransferase (ALT/SGPT) 15, Alkaline Phosphatase 93, Total Protein 7.3, Albumin 2.7L, Globulin 4.6, Albumin/Globulin Ratio 0.6L, Prostate Specific Antigen < 0.10L Height (Feet): 5 Height (Inches): 9.00 Weight (Pounds): 282 Objective exam stable, urine clearing PATRICE GARCIA Nov 09, 2017 12:17
[2017-11-09] MEDS ORDERED: Tubing IV Secondary IV ONE (15:40)
[2017-11-09] MEDS ORDERED: NS 275ml ONE (15:40)
[2017-11-09] MEDS ORDERED: Sterile Water Irrig 1000ml IRRIG ONE (15:40)
[2017-11-09 16:00] VITALS: BP 121/67
[2017-11-09 20:00] VITALS: BP 121/71
[2017-11-09] MEDS: Atorvastatin 20mg tab ORAL SCH (21:22)
[2017-11-10] VITALS: BP 113/74
[2017-11-10 04:00] VITALS: BP 128/79
[2017-11-10 05:13] LABS: INR 1.3 (0.9-1.1)
[2017-11-10] MEDS: ceFAZolin sod 1 GM in NS 55 ML IVPB SCH ×3 (06:19→21:02)
[2017-11-10] MEDS: GlipiZIDE 5mg tab ORAL SCH ×2 (06:19→18:19)
[2017-11-10 08:00] VITALS: BP 132/72
[2017-11-10] MEDS: Multivitamin w/Minerals tab ORAL SCH (09:13)
[2017-11-10] MEDS: Vitamin B-12 500mcg tab ORAL SCH (09:13)
[2017-11-10] MEDS: Docusate 100mg/10ml Liq ORAL SCH ×2 (09:13→18:19)
[2017-11-10] MEDS: Metoprolol Succinate XL 25mg tab ORAL SCH (09:14)
[2017-11-10] MEDS: Lyrica 50mg cap ORAL SCH (09:14)
--- NOTE | 2017-11-10 11:06 | Urology Progress Note ---
Assessment/Plan Assessment/Plan 1. Gross hematuria secondary to Chamberlain which is slowly resolving. 2. Benign prostatic hypertrophy. 3. Urinary retention. 4. Probable neurogenic bladder. 5. Pyuria. 6. Proteinuria. monitor clinically chamberlain hand irrigated, minimal clots cath secured to pt's leg hand irrigate PRN proscar added empiric abx, stop soon consider renal imaging, u/s or CT currently off coumadin, resume soon? Subjective Allergies: Coded Allergies: No Known Allergies (Unverified , 12/21/15) Subjective all noted Objective Last 24 Hour Vital Signs Date Time Temp Pulse Resp B/P (MAP) Pulse Ox O2 Delivery O2 Flow Rate FiO2 11/10/17 09:14 86 132/72 11/10/17 08:06 99 11/10/17 08:00 97.7 86 18 132/72 94 Nasal Cannula 3.0 97.7 11/10/17 07:51 Nasal Cannula 2.0 28 11/10/17 07:51 96 Nasal Cannula 2.0 28 11/10/17 04:00 82 11/10/17 04:00 97.9 84 18 128/79 94 Nasal Cannula 3.0 97.9 11/10/17 00:00 86 11/10/17 00:00 98.1 96 18 113/74 97 Nasal Cannula 4.0 98.1 11/09/17 20:00 97.3 87 18 121/71 99 Nasal Cannula 5.0 97.3 11/09/17 20:00 85 11/09/17 19:44 Nasal Cannula 2.0 28 11/09/17 19:43 97 Nasal Cannula 2.0 28 11/09/17 16:00 95 11/09/17 16:00 97.3 95 23 121/67 99 Nasal Cannula 3.0 97.3 11/09/17 12:00 97.0 87 19 119/66 99 Nasal Cannula 3.0 97.0 11/09/17 12:00 90 Intake and Output 11/09/17 11/10/17 19:00 07:00 Intake Total 610 ml 280 ml Output Total 700 ml 550 ml Balance -90 ml -270 ml Intake Oral 500 ml 225 ml IV Total 110 ml 55 ml Output Urine Total 700 ml 550 ml Microbiology Date/Time Source Procedure Growth Status 11/06/17 15:30 Indwelling Cath Urine Culture - Final NO GROWTH AFTER 48 HOURS Complete Current Medications Medications (Trade) Dose Ordered Sig/Abhishek Route PRN Reason Start Time Stop Time Status Last Admin Dose Admin Acetaminophen (Tylenol) 650 mg Q4H PRN ORAL Mild Pain/Temp > 100.5 11/05/17 16:15 12/05/17 16:14 Acetaminophen/ Hydrocodone Bitart ([place] 5/325) 1 tab Q4H PRN ORAL Severe Pain (Pain Scale 7-10) 11/05/17 16:15 11/12/17 16:14 11/06/17 13:31 Atorvastatin Calcium (Lipitor) 20 mg BEDTIME ORAL 11/02/17 21:00 12/02/17 20:59 11/09/17 21:22 Cefazolin Sodium 1 gm/Sodium Chloride 55 ml @ 110 mls/hr Q8HR IVPB 11/05/17 21:00 11/12/17 20:59 11/10/17 06:19 Cyanocobalamin (Vitamin B-12) 2,500 mcg DAILY ORAL 11/02/17 09:00 12/02/17 08:59 11/10/17 09:13 Dextrose (Dextrose 50%) STAT PRN IV Hypoglycemia 11/01/17 17:00 12/01/17 16:59 Docusate Sodium (Colace) 100 mg TWICE A DAY ORAL 11/10/17 09:00 12/10/17 08:59 11/10/17 09:13 Finasteride (Proscar) 5 mg QHS ORAL 11/05/17 20:00 12/05/17 19:59 11/09/17 21:22 Furosemide (Lasix) 20 mg DAILY ORAL 11/09/17 09:00 12/09/17 08:59 11/10/17 09:14 Glipizide (Glucotrol) 5 mg BIAC ORAL 11/02/17 06:30 12/02/17 06:29 11/10/17 06:19 Metoprolol Succinate (Toprol XL) 25 mg DAILY ORAL 11/02/17 09:00 12/02/17 08:59 11/10/17 09:14 Metoprolol Tartrate (Lopressor) 2.5 mg Q4H PRN IVP For High Blood Pressure 11/02/17 00:30 12/02/17 00:29 Multivitamins Therapeutic (Therapeutic Multivitamin) 1 ea DAILY ORAL 11/02/17 09:00 12/02/17 08:59 11/10/17 09:13 Potassium Chloride (K-Dur) 10 meq DAILY ORAL 11/02/17 09:00 12/02/17 08:59 11/10/17 09:14 Pregabalin (Lyrica) 50 mg DAILY ORAL 11/02/17 09:00 12/02/17 08:59 11/10/17 09:14 Laboratory Tests 11/10/17 04:10: Prothrombin Time 14.0H, Prothromb Time International Ratio 1.3H Height (Feet): 5 Height (Inches): 9.00 Weight (Pounds): 288 Objective exam stable, urine clearing PATRICE GARCIA Nov 10, 2017 11:06
--- NOTE | 2017-11-10 11:57 | Pulmonology Progress Note ---
Assessment/Plan Assessment/Plan IMPRESSION: 1. Status post fall. 2. Cough with phlegm production. 3. Congestive heart failure. 4. Troponin leak. 5. Cognitive impairment. 6. Pulm fibrosis DISCUSSION: Continue home medications. Has LVEF 55-60% on ECHO. Will hold coumadin due to hematuria Seen by urology CT with GG infiltrates and pulm HTN suggests long-standing process nasal O2 PT eval Continue diuresus BiPAP q pm Dc planning to home Discussed with family SNF on Saturday Resume [facility] Chris Guerrero M.D. Subjective Interval Events: Better Constitutional: Reports: no symptoms HEENT: Repors: no symptoms Respiratory: Reports: no symptoms Cardiovascular: Reports: no symptoms Allergies: Coded Allergies: No Known Allergies (Unverified , 12/21/15) Objective Last 24 Hour Vital Signs Date Time Temp Pulse Resp B/P (MAP) Pulse Ox O2 Delivery O2 Flow Rate FiO2 11/10/17 09:14 86 132/72 11/10/17 08:06 99 11/10/17 08:00 97.7 86 18 132/72 94 Nasal Cannula 3.0 97.7 11/10/17 07:51 Nasal Cannula 2.0 28 11/10/17 07:51 96 Nasal Cannula 2.0 28 11/10/17 04:00 82 11/10/17 04:00 97.9 84 18 128/79 94 Nasal Cannula 3.0 97.9 11/10/17 00:00 86 11/10/17 00:00 98.1 96 18 113/74 97 Nasal Cannula 4.0 98.1 11/09/17 20:00 97.3 87 18 121/71 99 Nasal Cannula 5.0 97.3 11/09/17 20:00 85 11/09/17 19:44 Nasal Cannula 2.0 28 11/09/17 19:43 97 Nasal Cannula 2.0 28 11/09/17 16:00 95 11/09/17 16:00 97.3 95 23 121/67 99 Nasal Cannula 3.0 97.3 11/09/17 12:00 97.0 87 19 119/66 99 Nasal Cannula 3.0 97.0 2/24/18 12:00 90 Intake and Output 11/09/17 11/10/17 19:00 07:00 Intake Total 610 ml 280 ml Output Total 700 ml 550 ml Balance -90 ml -270 ml Intake Oral 500 ml 225 ml IV Total 110 ml 55 ml Output Urine Total 700 ml 550 ml General Appearance: no acute distress HEENT: normocephalic Respiratory/Chest: chest wall non-tender, crackles/rales Cardiovascular: normal peripheral pulses, normal rate Abdomen: normal bowel sounds Laboratory Tests 11/10/17 04:10: Prothrombin Time 14.0H, Prothromb Time International Ratio 1.3H Current Medications Medications (Trade) Dose Ordered Sig/Abhishek Route PRN Reason Start Time Stop Time Status Last Admin Dose Admin Acetaminophen (Tylenol) 650 mg Q4H PRN ORAL Mild Pain/Temp > 100.5 11/05/17 16:15 12/05/17 16:14 Acetaminophen/ Hydrocodone Bitart ([place] 5/325) 1 tab Q4H PRN ORAL Severe Pain (Pain Scale 7-10) 11/05/17 16:15 11/12/17 16:14 11/06/17 13:31 Atorvastatin Calcium (Lipitor) 20 mg BEDTIME ORAL 11/02/17 21:00 12/02/17 20:59 11/09/17 21:22 Cefazolin Sodium 1 gm/Sodium Chloride 55 ml @ 110 mls/hr Q8HR IVPB 11/05/17 21:00 11/12/17 20:59 11/10/17 06:19 Cyanocobalamin (Vitamin B-12) 2,500 mcg DAILY ORAL 11/02/17 09:00 12/02/17 08:59 11/10/17 09:13 Dextrose (Dextrose 50%) STAT PRN IV Hypoglycemia 11/01/17 17:00 12/01/17 16:59 Docusate Sodium (Colace) 100 mg TWICE A DAY ORAL 11/10/17 09:00 12/10/17 08:59 11/10/17 09:13 Finasteride (Proscar) 5 mg QHS ORAL 11/05/17 20:00 12/05/17 19:59 11/09/17 21:22 Furosemide (Lasix) 20 mg DAILY ORAL 11/09/17 09:00 12/09/17 08:59 11/10/17 09:14 Glipizide (Glucotrol) 5 mg BIAC ORAL 11/02/17 06:30 12/02/17 06:29 11/10/17 06:19 Metoprolol Succinate (Toprol XL) 25 mg DAILY ORAL 11/02/17 09:00 12/02/17 08:59 11/10/17 09:14 Metoprolol Tartrate (Lopressor) 2.5 mg Q4H PRN IVP For High Blood Pressure 11/02/17 00:30 12/02/17 00:29 Multivitamins Therapeutic (Therapeutic Multivitamin) 1 ea DAILY ORAL 11/02/17 09:00 12/02/17 08:59 11/10/17 09:13 Potassium Chloride (K-Dur) 10 meq DAILY ORAL 11/02/17 09:00 12/02/17 08:59 11/10/17 09:14 Pregabalin (Lyrica) 50 mg DAILY ORAL 11/02/17 09:00 12/02/17 08:59 11/10/17 09:14 Chris Guerrero MD Nov 10, 2017 11:57
[2017-11-10 12:00] VITALS: BP 111/59
--- NOTE | 2017-11-10 13:45 | Cardiology Progress Note ---
Assessment/Plan Assessment/Plan CHF, stable, on diuretics pulmonary hypertension severe atrial fibrillation, rate controlled he is starting on Coumadin, was on hold due to hematuria Subjective Subjective the patient is lethargic, opens his eyes, indicates that he is doing OK Objective Last 24 Hour Vital Signs Date Time Temp Pulse Resp B/P (MAP) Pulse Ox O2 Delivery O2 Flow Rate FiO2 11/10/17 12:00 97.9 82 18 111/59 96 Nasal Cannula 3.0 97.9 11/10/17 11:45 87 11/10/17 09:14 86 132/72 11/10/17 08:06 99 11/10/17 08:00 97.7 86 18 132/72 94 Nasal Cannula 3.0 97.7 11/10/17 07:51 Nasal Cannula 2.0 28 11/10/17 07:51 96 Nasal Cannula 2.0 28 11/10/17 04:00 82 11/10/17 04:00 97.9 84 18 128/79 94 Nasal Cannula 3.0 97.9 11/10/17 00:00 86 11/10/17 00:00 98.1 96 18 113/74 97 Nasal Cannula 4.0 98.1 11/09/17 20:00 97.3 87 18 121/71 99 Nasal Cannula 5.0 97.3 11/09/17 20:00 85 11/09/17 19:44 Nasal Cannula 2.0 28 11/09/17 19:43 97 Nasal Cannula 2.0 28 11/09/17 16:00 95 11/09/17 16:00 97.3 95 23 121/67 99 Nasal Cannula 3.0 97.3 General Appearance: lethargic EENT: PERRL/EOMI Neck: JVD Rhythm: Afib Cardiovascular: tachycardia Respiratory/Chest: crackles/rales, rhonchi - bilaterally Abdomen: non tender Extremities: moderate edema, severe edema Neurologic: depressed affect Intake and Output 11/09/17 11/10/17 19:00 07:00 Intake Total 610 ml 280 ml Output Total 700 ml 550 ml Balance -90 ml -270 ml Intake Oral 500 ml 225 ml IV Total 110 ml 55 ml Output Urine Total 700 ml 550 ml Laboratory Tests Test 11/10/17 04:10 Prothrombin Time 14.0 SEC (9.30-11.50) H Prothromb Time International Ratio 1.3 (0.9-1.1) H KAJAL CORLEY Nov 10, 2017 13:45
[2017-11-10 16:00] VITALS: BP 129/78
[2017-11-10] MEDS ORDERED: Warfarin Sodium 5mg ORAL ONE (17:00)
[2017-11-10 20:00] VITALS: BP 143/73
[2017-11-10] MEDS: Atorvastatin 20mg tab ORAL SCH (21:02)
[2017-11-11] VITALS: BP 141/78
[2017-11-11 04:00] VITALS: BP 115/68
[2017-11-11 04:16] LABS: INR 1.3 (0.9-1.1)
[2017-11-11] MEDS: GlipiZIDE 5mg tab ORAL SCH ×2 (06:09→17:22)
[2017-11-11] MEDS: ceFAZolin sod 1 GM in NS 55 ML IVPB SCH ×3 (06:09→21:52)
[2017-11-11 07:51] VITALS: BP 129/75
[2017-11-11] MEDS: Vitamin B-12 500mcg tab ORAL SCH (08:02)
[2017-11-11] MEDS: Metoprolol Succinate XL 25mg tab ORAL SCH (08:02)
[2017-11-11] MEDS: Docusate 100mg/10ml Liq ORAL SCH ×2 (08:03→17:22)
[2017-11-11] MEDS: Multivitamin w/Minerals tab ORAL SCH (08:03)
[2017-11-11] MEDS: Lyrica 50mg cap ORAL SCH (08:04)
--- NOTE | 2017-11-11 08:11 | Pulmonology Progress Note ---
Assessment/Plan Assessment/Plan IMPRESSION: 1. Status post fall. 2. Cough with phlegm production. 3. Congestive heart failure. 4. Troponin leak. 5. Cognitive impairment. 6. Pulm fibrosis DISCUSSION: Continue home medications. Has LVEF 55-60% on ECHO. BAck on coumadin Seen by urology CT with GG infiltrates and pulm HTN suggests long-standing process nasal O2 PT eval Continue diuresus BiPAP q pm Discussed with family SNF today Chris Guerrero M.D. Subjective Interval Events: Doing well; on nasal o2 Constitutional: Reports: no symptoms HEENT: Repors: no symptoms Respiratory: Reports: dry cough Cardiovascular: Reports: no symptoms Gastrointestinal/Abdominal: Reports: no symptoms Genitourinary: Reports: no symptoms Allergies: Coded Allergies: No Known Allergies (Unverified , 12/21/15) Objective Last 24 Hour Vital Signs Date Time Temp Pulse Resp B/P (MAP) Pulse Ox O2 Delivery O2 Flow Rate FiO2 11/11/17 08:02 94 129/75 11/11/17 07:51 97.7 94 20 129/75 95 Nasal Cannula 3.0 97.7 11/11/17 07:27 Nasal Cannula 2.0 28 11/11/17 07:27 97 Nasal Cannula 2.0 28 11/11/17 04:00 93 11/11/17 04:00 96.1 95 20 115/68 96 Nasal Cannula 3.0 96.1 11/11/17 00:00 88 11/11/17 00:00 98.2 95 21 141/78 96 Nasal Cannula 3.0 98.2 11/10/17 20:00 98.2 95 22 143/73 96 98.2 11/10/17 20:00 87 11/10/17 20:00 98.2 95 22 143/73 96 Nasal Cannula 3.0 98.2 11/10/17 19:00 Nasal Cannula 2.0 28 11/10/17 19:00 97 Nasal Cannula 2.0 28 11/10/17 16:00 88 11/10/17 16:00 97.8 87 18 129/78 97 Nasal Cannula 3.0 97.8 11/10/17 12:00 97.9 82 18 111/59 96 Nasal Cannula 3.0 97.9 11/10/17 11:45 87 11/10/17 09:14 86 132/72 Intake and Output 11/10/17 11/11/17 19:00 07:00 Intake Total 1050 ml 230 ml Output Total 800 ml 1000 ml Balance 250 ml -770 ml Intake Oral 1050 ml 120 ml IV Total 110 ml Output Urine Total 800 ml 1000 ml Stool Total 0 ml General Appearance: no acute distress HEENT: normocephalic Respiratory/Chest: chest wall non-tender, crackles/rales Cardiovascular: normal peripheral pulses, normal rate Abdomen: normal bowel sounds, soft, non tender Laboratory Tests 11/11/17 03:50: Prothrombin Time 13.4H, Prothromb Time International Ratio 1.3H Current Medications Medications (Trade) Dose Ordered Sig/Abhishek Route PRN Reason Start Time Stop Time Status Last Admin Dose Admin Acetaminophen (Tylenol) 650 mg Q4H PRN ORAL Mild Pain/Temp > 100.5 11/05/17 16:15 12/05/17 16:14 Acetaminophen/ Hydrocodone Bitart ([place] 5/325) 1 tab Q4H PRN ORAL Severe Pain (Pain Scale 7-10) 11/05/17 16:15 11/12/17 16:14 11/06/17 13:31 Atorvastatin Calcium (Lipitor) 20 mg BEDTIME ORAL 11/02/17 21:00 12/02/17 20:59 11/10/17 21:02 Cefazolin Sodium 1 gm/Sodium Chloride 55 ml @ 110 mls/hr Q8HR IVPB 11/05/17 21:00 11/12/17 20:59 11/11/17 06:09 Cyanocobalamin (Vitamin B-12) 2,500 mcg DAILY ORAL 11/02/17 09:00 12/02/17 08:59 11/11/17 08:02 Dextrose (Dextrose 50%) STAT PRN IV Hypoglycemia 11/01/17 17:00 12/01/17 16:59 Docusate Sodium (Colace) 100 mg TWICE A DAY ORAL 11/10/17 09:00 12/10/17 08:59 11/11/17 08:03 Finasteride (Proscar) 5 mg QHS ORAL 11/05/17 20:00 12/05/17 19:59 11/10/17 21:02 Furosemide (Lasix) 20 mg DAILY ORAL 11/09/17 09:00 12/09/17 08:59 11/11/17 08:03 Glipizide (Glucotrol) 5 mg BIAC ORAL 11/02/17 06:30 12/02/17 06:29 11/11/17 06:09 Metoprolol Succinate (Toprol XL) 25 mg DAILY ORAL 11/02/17 09:00 12/02/17 08:59 11/11/17 08:02 Metoprolol Tartrate (Lopressor) 2.5 mg Q4H PRN IVP For High Blood Pressure 11/02/17 00:30 12/02/17 00:29 Multivitamins Therapeutic (Therapeutic Multivitamin) 1 ea DAILY ORAL 11/02/17 09:00 12/02/17 08:59 11/11/17 08:03 Potassium Chloride (K-Dur) 10 meq DAILY ORAL 11/02/17 09:00 12/02/17 08:59 11/11/17 08:03 Pregabalin (Lyrica) 50 mg DAILY ORAL 11/02/17 09:00 12/02/17 08:59 11/11/17 08:04 Warfarin Sodium (Coumadin per pharmacy) 1 ea DAILYPRN PRN MISC Per rx protocol 11/10/17 12:00 12/10/17 11:59 Warfarin Sodium (Coumadin) 5 mg COUMADIN ONCE ORAL 11/11/17 17:00 11/11/17 17:01 Chris Guerrero MD Nov 11, 2017 08:11
[2017-11-11] MEDS ORDERED: FUROSEMIDE20 M1 ORAL (08:12)
[2017-11-11] MEDS ORDERED: FINASTERIDE5 MG ORAL (08:12)
--- NOTE | 2017-11-11 10:37 | Urology Progress Note ---
Assessment/Plan Assessment/Plan 1. Gross hematuria secondary to [place] which is slowly resolving. 2. Benign prostatic hypertrophy. 3. Urinary retention. 4. Probable neurogenic bladder. 5. Pyuria. 6. Proteinuria. monitor clinically [place] hand irrigated, minimal clots cath secured to pt's leg hand irrigate PRN proscar added empiric abx, stop soon consider renal imaging, u/s or CT restarted on coumadin Subjective Allergies: Coded Allergies: No Known Allergies (Unverified , 12/21/15) Subjective all noted Objective Last 24 Hour Vital Signs Date Time Temp Pulse Resp B/P (MAP) Pulse Ox O2 Delivery O2 Flow Rate FiO2 11/11/17 08:02 94 129/75 11/11/17 07:51 97.7 94 20 129/75 95 Nasal Cannula 3.0 97.7 11/11/17 07:30 88 11/11/17 07:27 Nasal Cannula 2.0 28 11/11/17 07:27 97 Nasal Cannula 2.0 28 11/11/17 04:00 93 11/11/17 04:00 96.1 95 20 115/68 96 Nasal Cannula 3.0 96.1 11/11/17 00:00 88 11/11/17 00:00 98.2 95 21 141/78 96 Nasal Cannula 3.0 98.2 11/10/17 20:00 98.2 95 22 143/73 96 98.2 11/10/17 20:00 87 11/10/17 20:00 98.2 95 22 143/73 96 Nasal Cannula 3.0 98.2 11/10/17 19:00 Nasal Cannula 2.0 28 11/10/17 19:00 97 Nasal Cannula 2.0 28 11/10/17 16:00 88 11/10/17 16:00 97.8 87 18 129/78 97 Nasal Cannula 3.0 97.8 11/10/17 12:00 97.9 82 18 111/59 96 Nasal Cannula 3.0 97.9 11/10/17 11:45 87 Intake and Output 11/10/17 11/11/17 19:00 07:00 Intake Total 1050 ml 230 ml Output Total 800 ml 1000 ml Balance 250 ml -770 ml Intake Oral 1050 ml 120 ml IV Total 110 ml Output Urine Total 800 ml 1000 ml Stool Total 0 ml Microbiology Date/Time Source Procedure Growth Status 11/06/17 15:30 Indwelling Cath Urine Culture - Final NO GROWTH AFTER 48 HOURS Complete Current Medications Medications (Trade) Dose Ordered Sig/Abhishek Route PRN Reason Start Time Stop Time Status Last Admin Dose Admin Acetaminophen (Tylenol) 650 mg Q4H PRN ORAL Mild Pain/Temp > 100.5 11/05/17 16:15 12/05/17 16:14 Acetaminophen/ Hydrocodone Bitart ([place] 5/325) 1 tab Q4H PRN ORAL Severe Pain (Pain Scale 7-10) 11/05/17 16:15 11/12/17 16:14 11/06/17 13:31 Atorvastatin Calcium (Lipitor) 20 mg BEDTIME ORAL 11/02/17 21:00 12/02/17 20:59 11/10/17 21:02 Cefazolin Sodium 1 gm/Sodium Chloride 55 ml @ 110 mls/hr Q8HR IVPB 11/05/17 21:00 11/12/17 20:59 11/11/17 06:09 Cyanocobalamin (Vitamin B-12) 2,500 mcg DAILY ORAL 11/02/17 09:00 12/02/17 08:59 11/11/17 08:02 Dextrose (Dextrose 50%) STAT PRN IV Hypoglycemia 11/01/17 17:00 12/01/17 16:59 Docusate Sodium (Colace) 100 mg TWICE A DAY ORAL 11/10/17 09:00 12/10/17 08:59 11/11/17 08:03 Finasteride (Proscar) 5 mg QHS ORAL 11/05/17 20:00 12/05/17 19:59 11/10/17 21:02 Furosemide (Lasix) 20 mg DAILY ORAL 11/09/17 09:00 12/09/17 08:59 11/11/17 08:03 Glipizide (Glucotrol) 5 mg BIAC ORAL 11/02/17 06:30 12/02/17 06:29 11/11/17 06:09 Metoprolol Succinate (Toprol XL) 25 mg DAILY ORAL 11/02/17 09:00 12/02/17 08:59 11/11/17 08:02 Metoprolol Tartrate (Lopressor) 2.5 mg Q4H PRN IVP For High Blood Pressure 11/02/17 00:30 12/02/17 00:29 Multivitamins Therapeutic (Therapeutic Multivitamin) 1 ea DAILY ORAL 11/02/17 09:00 12/02/17 08:59 11/11/17 08:03 Potassium Chloride (K-Dur) 10 meq DAILY ORAL 11/02/17 09:00 12/02/17 08:59 11/11/17 08:03 Pregabalin (Lyrica) 50 mg DAILY ORAL 11/02/17 09:00 12/02/17 08:59 11/11/17 08:04 Warfarin Sodium (Coumadin per pharmacy) 1 ea DAILYPRN PRN MISC Per rx protocol 11/10/17 12:00 12/10/17 11:59 Warfarin Sodium (Coumadin) 5 mg COUMADIN ONCE ORAL 11/11/17 17:00 11/11/17 17:01 Laboratory Tests 11/11/17 03:50: Prothrombin Time 13.4H, Prothromb Time International Ratio 1.3H Height (Feet): 5 Height (Inches): 9.00 Weight (Pounds): 287 Objective exam stable, urine clearing PATRICE GARCIA Nov 11, 2017 10:37
[2017-11-11 12:00] VITALS: BP 140/74
--- NOTE | 2017-11-11 15:29 | Wound Care Consultation ---
Wound Assessment Wound Assessment #1: Wound Number: 1 Wound Present on Admission: No New Wound: Yes Status Change of Wound: No Wound Location Body Site Modif: right Wound Location Body Site: ear Wound Type: pressure ulcer Maico Test: Does not [place] Pressure Ulcer Stage: Pressure by Foreign Body - stage 1 Wound Thickness: Partial Thickness Wound Length: 1.0 Wound Width: 1.0 Percent of Wound Candy Kitchen/Red: 100 Percent of Wound Purple/Maroon: 100 Wound Drainage Amount: None Wound Drainage Odor: None/Absent Tissue Surrounding Wound: Intact Wound General Appearance: Reddened Wound Assessment #2: Wound Number: 2 Wound Present on Admission: No New Wound: Yes Status Change of Wound: No Wound Location Body Site Modif: left Wound Location Body Site: ear Wound Type: pressure ulcer [place] Test: Does not [place] Pressure Ulcer Stage: Pressure by Foreign Body - nasal cannula appears as stage 2 as of now will continue to monitor. Wound Thickness: Partial Thickness Wound Length: 1.0 Wound Width: 0.5 Wound Depth: 0.1 Percent of Wound Candy Kitchen/Red: 100 Wound Drainage Description: Serosanguineous Wound Drainage Amount: Scant Wound Drainage Odor: None/Absent Tissue Surrounding Wound: Erythemic Wound General Appearance: Reddened Wound Comment #1 right top of ear stage 1.- APPLY CUSHION , 4X4 Gauze,assess skin.assess skin for any changes. #2 left top of ear stage 2.-APPLY CUSHION , 4X4 Gauze,assess skin for any changes. 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
[2017-11-11 16:00] VITALS: BP 140/74
[2017-11-11] MEDS ORDERED: Warfarin Sodium 5mg ORAL ONE (17:00)
[2017-11-11 19:53] VITALS: BP 140/90
--- NOTE | 2017-11-11 20:38 | Cardiology Progress Note ---
Assessment/Plan Assessment/Plan 1. Fall. 2. Cough with purulent sputum. 3. Possible heart failure. 4. Abnormal cardiac enzymes demand related 5. Thrombocytopenia 6. pulm htn 7. ? pulm fibrosis echo shows normal wall motion ekg no st t wave abn trop min abn likely demand related no peak no hermilo to suggest a coronary syndrome crackles sound coarse still with pulm finding lasix 20 mg dialy po to snf Subjective Cardiovascular: Denies: chest pain, lightheadedness Respiratory: Reports: shortness of breath, Denies: cough Gastrointestinal/Abdominal: Denies: abdominal pain Genitourinary: Denies: burning Objective Last 24 Hour Vital Signs Date Time Temp Pulse Resp B/P (MAP) Pulse Ox O2 Delivery O2 Flow Rate FiO2 11/11/17 19:53 97.9 94 18 140/90 95 97.9 11/11/17 17:51 21 96 Nasal Cannula 5.0 11/11/17 16:48 26 96 Bi-pap 30 11/11/17 16:34 96 26 97 Facial 30 11/11/17 16:00 97.5 90 20 140/74 94 Nasal Cannula 3.0 97.5 11/11/17 15:31 96 11/11/17 12:00 81 11/11/17 12:00 97.8 90 20 140/74 94 Nasal Cannula 3.0 97.8 11/11/17 08:02 94 129/75 11/11/17 07:51 97.7 94 20 129/75 95 Nasal Cannula 3.0 97.7 11/11/17 07:30 88 11/11/17 07:27 Nasal Cannula 2.0 28 11/11/17 07:27 97 Nasal Cannula 2.0 28 11/11/17 04:00 93 11/11/17 04:00 96.1 95 20 115/68 96 Nasal Cannula 3.0 96.1 11/11/17 00:00 88 11/11/17 00:00 98.2 95 21 141/78 96 Nasal Cannula 3.0 98.2 General Appearance: no apparent distress, alert Neck: no JVD Cardiovascular: irregularly irregular Respiratory/Chest: crackles/rales Abdomen: normal bowel sounds, non tender, soft Extremities: no swelling Intake and Output 11/10/17 11/11/17 19:00 07:00 Intake Total 1050 ml 230 ml Output Total 800 ml 1000 ml Balance 250 ml -770 ml Intake Oral 1050 ml 120 ml IV Total 110 ml Output Urine Total 800 ml 1000 ml Stool Total 0 ml Laboratory Tests Test 11/11/17 03:50 11/11/17 17:20 Prothrombin Time 13.4 SEC (9.30-11.50) H Prothromb Time International Ratio 1.3 (0.9-1.1) H Arterial Blood pH 7.438 (7.350-7.450) Arterial Blood Partial Pressure CO2 57.7 mmHg (35.0-45.0) *H Arterial Blood Partial Pressure O2 73.6 mmHg (75.0-100.0) L Arterial Blood HCO3 38.1 mmol/L (22.0-26.0) H Arterial Blood Oxygen Saturation 95.2 % (92.0-98.0) Arterial Blood Base Excess 11.8 Milad Test Positive NAOMIE DO Nov 11, 2017 20:38
[2017-11-11] MEDS: Atorvastatin 20mg tab ORAL SCH (21:52)
[2017-11-11] MEDS: Norco 5mg/325mg tab ORAL PRN (23:28)
[2017-11-12] VITALS: BP 147/71
[2017-11-12] MEDS: Milk of Magnesia 30ml Ud ORAL PRN (00:46)
[2017-11-12 04:00] VITALS: BP 143/68
[2017-11-12 04:56] LABS: INR 1.2 (0.9-1.1)
[2017-11-12] MEDS: ceFAZolin sod 1 GM in NS 55 ML IVPB SCH ×2 (05:38→13:53)
[2017-11-12] MEDS: GlipiZIDE 5mg tab ORAL SCH ×2 (05:38→17:01)
[2017-11-12 08:00] VITALS: BP 150/72
[2017-11-12] MEDS: Docusate 100mg/10ml Liq ORAL SCH ×2 (08:30→17:02)
[2017-11-12] MEDS: Lyrica 50mg cap ORAL SCH (08:31)
[2017-11-12] MEDS: Metoprolol Succinate XL 25mg tab ORAL SCH (08:31)
[2017-11-12] MEDS: Multivitamin w/Minerals tab ORAL SCH (08:31)
[2017-11-12] MEDS: Vitamin B-12 500mcg tab ORAL SCH (08:31)
--- NOTE | 2017-11-12 09:13 | Urology Progress Note ---
Assessment/Plan Assessment/Plan 1. Gross hematuria secondary to [place] which is slowly resolving. 2. Benign prostatic hypertrophy. 3. Urinary retention. 4. Probable neurogenic bladder. 5. Pyuria. 6. Proteinuria. monitor clinically cath secured to pt's leg hand irrigate PRN proscar added s/p empiric abx, finish course consider renal imaging, u/s or CT restarted on coumadin Subjective Allergies: Coded Allergies: No Known Allergies (Unverified , 12/21/15) Subjective all noted Objective Last 24 Hour Vital Signs Date Time Temp Pulse Resp B/P (MAP) Pulse Ox O2 Delivery O2 Flow Rate FiO2 11/12/17 08:38 89 Nasal Cannula 2.0 11/12/17 08:31 90 150/72 11/12/17 08:00 95.7 90 22 150/72 98 Nasal Cannula 5.0 95.7 11/12/17 06:25 98 Nasal Cannula 5.0 40 11/12/17 06:25 Nasal Cannula 5.0 40 11/12/17 04:00 97.5 106 20 143/68 96 Nasal Cannula 5.0 97.5 11/12/17 04:00 83 11/12/17 00:00 97.7 100 20 147/71 94 Nasal Cannula 5.0 97.7 11/12/17 00:00 102 11/11/17 20:00 100 11/11/17 20:00 18 95 Nasal Cannula 5.0 11/11/17 19:53 97.9 94 18 140/90 95 97.9 11/11/17 19:00 96 Nasal Cannula 2.0 28 11/11/17 19:00 Nasal Cannula 2.0 28 11/11/17 17:51 21 96 Nasal Cannula 5.0 11/11/17 16:48 26 96 Bi-pap 30 11/11/17 16:34 96 26 97 Facial 30 11/11/17 16:00 97.5 90 20 140/74 94 Nasal Cannula 3.0 97.5 11/11/17 15:31 96 11/11/17 12:00 81 11/11/17 12:00 97.8 90 20 140/74 94 Nasal Cannula 3.0 97.8 Intake and Output 11/11/17 11/12/17 19:00 07:00 Intake Total 1755 ml 470 ml Output Total 1700 ml 500 ml Balance 55 ml -30 ml Intake Oral 1700 ml 360 ml IV Total 55 ml 110 ml Output Urine Total 1700 ml 500 ml # Voids 2 1 Microbiology Date/Time Source Procedure Growth Status 11/06/17 15:30 Indwelling Cath Urine Culture - Final NO GROWTH AFTER 48 HOURS Complete Current Medications Medications (Trade) Dose Ordered Sig/Abhishek Route PRN Reason Start Time Stop Time Status Last Admin Dose Admin Acetaminophen (Tylenol) 650 mg Q4H PRN ORAL Mild Pain/Temp > 100.5 11/05/17 16:15 12/05/17 16:14 Acetaminophen/ Hydrocodone Bitart ([place] 5/325) 1 tab Q4H PRN ORAL Severe Pain (Pain Scale 7-10) 11/05/17 16:15 11/12/17 16:14 11/11/17 23:28 Atorvastatin Calcium (Lipitor) 20 mg BEDTIME ORAL 11/02/17 21:00 12/02/17 20:59 11/11/17 21:52 Cefazolin Sodium 1 gm/Sodium Chloride 55 ml @ 110 mls/hr Q8HR IVPB 11/05/17 21:00 11/12/17 20:59 11/12/17 05:38 Cyanocobalamin (Vitamin B-12) 2,500 mcg DAILY ORAL 11/02/17 09:00 12/02/17 08:59 11/12/17 08:31 Dextrose (Dextrose 50%) STAT PRN IV Hypoglycemia 11/01/17 17:00 12/01/17 16:59 Docusate Sodium (Colace) 100 mg TWICE A DAY ORAL 11/10/17 09:00 12/10/17 08:59 11/12/17 08:30 Finasteride (Proscar) 5 mg QHS ORAL 11/05/17 20:00 12/05/17 19:59 11/11/17 21:52 Furosemide (Lasix) 20 mg DAILY ORAL 11/09/17 09:00 12/09/17 08:59 11/12/17 08:32 Glipizide (Glucotrol) 5 mg BIAC ORAL 11/02/17 06:30 12/02/17 06:29 11/12/17 05:38 Magnesium Hydroxide (Mom) 30 ml HSPRN PRN ORAL Constipation 11/11/17 17:45 12/11/17 17:44 11/12/17 00:46 Metoprolol Succinate (Toprol XL) 25 mg DAILY ORAL 11/02/17 09:00 12/02/17 08:59 11/12/17 08:31 Metoprolol Tartrate (Lopressor) 2.5 mg Q4H PRN IVP For High Blood Pressure 11/02/17 00:30 12/02/17 00:29 Multivitamins Therapeutic (Therapeutic Multivitamin) 1 ea DAILY ORAL 11/02/17 09:00 12/02/17 08:59 11/12/17 08:31 Potassium Chloride (K-Dur) 10 meq DAILY ORAL 11/02/17 09:00 12/02/17 08:59 11/12/17 08:31 Pregabalin (Lyrica) 50 mg DAILY ORAL 11/02/17 09:00 12/02/17 08:59 11/12/17 08:31 Warfarin Sodium (Coumadin per pharmacy) 1 ea DAILYPRN PRN MISC Per rx protocol 11/10/17 12:00 12/10/17 11:59 Warfarin Sodium (Coumadin) 6 mg COUMADIN ONCE ORAL 11/12/17 17:00 11/12/17 17:01 Laboratory Tests 11/11/17 17:20: Arterial Blood pH 7.438, Arterial Blood Partial Pressure CO2 57.7*H, Arterial Blood Partial Pressure O2 73.6L, Arterial Blood HCO3 38.1H, Arterial Blood Oxygen Saturation 95.2, Arterial Blood Base Excess 11.8, Milad Test Positive 11/12/17 04:00: Prothrombin Time 13.0H, Prothromb Time International Ratio 1.2H Height (Feet): 5 Height (Inches): 9.00 Weight (Pounds): 290 Objective exam stable, urine clearing PATRICE GARCIA Nov 12, 2017 09:12
[2017-11-12] MEDS ORDERED: Lactulose 20gm/30ml UDC ORAL ONE (09:30)
[2017-11-12 12:00] VITALS: BP 140/80
--- NOTE | 2017-11-12 14:37 | Cardiology Progress Note ---
Assessment/Plan Assessment/Plan 1. Fall. 2. Cough with purulent sputum. 3. Possible heart failure. 4. Abnormal cardiac enzymes demand related 5. Thrombocytopenia 6. pulm htn 7. ? pulm fibrosis echo shows normal wall motion ekg no st t wave abn trop min abn likely demand related no peak no hermilo to suggest a coronary syndrome crackles sound coarse still with pulm finding lasix increase to 40 mg dialy po to snf Subjective Cardiovascular: Denies: chest pain Respiratory: Reports: shortness of breath Gastrointestinal/Abdominal: Denies: abdominal pain Genitourinary: Denies: burning Objective Last 24 Hour Vital Signs Date Time Temp Pulse Resp B/P (MAP) Pulse Ox O2 Delivery O2 Flow Rate FiO2 11/12/17 12:03 88 11/12/17 12:00 95.9 97 20 140/80 97 Nasal Cannula 5.0 95.9 11/12/17 08:38 89 Nasal Cannula 2.0 11/12/17 08:31 90 150/72 11/12/17 08:00 95.7 90 22 150/72 98 Nasal Cannula 5.0 95.7 11/12/17 07:48 95 11/12/17 06:25 98 Nasal Cannula 5.0 40 11/12/17 06:25 Nasal Cannula 5.0 40 11/12/17 04:00 97.5 106 20 143/68 96 Nasal Cannula 5.0 97.5 11/12/17 04:00 83 11/12/17 00:00 97.7 100 20 147/71 94 Nasal Cannula 5.0 97.7 11/12/17 00:00 102 11/11/17 20:00 100 11/11/17 20:00 18 95 Nasal Cannula 5.0 11/11/17 19:53 97.9 94 18 140/90 95 97.9 11/11/17 19:00 96 Nasal Cannula 2.0 28 11/11/17 19:00 Nasal Cannula 2.0 28 11/11/17 17:51 21 96 Nasal Cannula 5.0 11/11/17 16:48 26 96 Bi-pap 30 11/11/17 16:34 96 26 97 Facial 30 11/11/17 16:00 97.5 90 20 140/74 94 Nasal Cannula 3.0 97.5 11/11/17 15:31 96 General Appearance: alert Cardiovascular: irregularly irregular Respiratory/Chest: crackles/rales Abdomen: normal bowel sounds, non tender, soft Extremities: trace edema Intake and Output 11/11/17 11/12/17 19:00 07:00 Intake Total 1755 ml 470 ml Output Total 1700 ml 500 ml Balance 55 ml -30 ml Intake Oral 1700 ml 360 ml IV Total 55 ml 110 ml Output Urine Total 1700 ml 500 ml # Voids 2 1 Laboratory Tests Test 11/11/17 17:20 11/12/17 04:00 Arterial Blood pH 7.438 (7.350-7.450) Arterial Blood Partial Pressure CO2 57.7 mmHg (35.0-45.0) *H Arterial Blood Partial Pressure O2 73.6 mmHg (75.0-100.0) L Arterial Blood HCO3 38.1 mmol/L (22.0-26.0) H Arterial Blood Oxygen Saturation 95.2 % (92.0-98.0) Arterial Blood Base Excess 11.8 Milad Test Positive Prothrombin Time 13.0 SEC (9.30-11.50) H Prothromb Time International Ratio 1.2 (0.9-1.1) H NAOMIE DO Nov 12, 2017 14:37
--- NOTE | 2017-11-12 15:51 | Pulmonology Progress Note ---
Assessment/Plan Assessment/Plan IMPRESSION: 1. Status post fall. 2. Cough with phlegm production. 3. Congestive heart failure. 4. Troponin leak. 5. Cognitive impairment. 6. Pulm fibrosis DISCUSSION: Continue home medications. Has LVEF 55-60% on ECHO. BAck on coumadin Seen by urology CT with GG infiltrates and pulm HTN suggests long-standing process nasal O2 PT eval Continue diuresus BiPAP q pm Discussed with family SNF when bed available Chirs Guerrero M.D. Subjective Interval Events: none Constitutional: Reports: no symptoms HEENT: Repors: no symptoms Respiratory: Reports: no symptoms Cardiovascular: Reports: no symptoms Gastrointestinal/Abdominal: Reports: no symptoms Genitourinary: Reports: no symptoms Allergies: Coded Allergies: No Known Allergies (Unverified , 12/21/15) Objective Last 24 Hour Vital Signs Date Time Temp Pulse Resp B/P (MAP) Pulse Ox O2 Delivery O2 Flow Rate FiO2 11/12/17 12:03 88 11/12/17 12:00 95.9 97 20 140/80 97 Nasal Cannula 5.0 95.9 11/12/17 08:38 89 Nasal Cannula 2.0 11/12/17 08:31 90 150/72 11/12/17 08:00 95.7 90 22 150/72 98 Nasal Cannula 5.0 95.7 11/12/17 07:48 95 11/12/17 06:25 98 Nasal Cannula 5.0 40 11/12/17 06:25 Nasal Cannula 5.0 40 11/12/17 04:00 97.5 106 20 143/68 96 Nasal Cannula 5.0 97.5 11/12/17 04:00 83 11/12/17 00:00 97.7 100 20 147/71 94 Nasal Cannula 5.0 97.7 11/12/17 00:00 102 11/11/17 20:00 100 11/11/17 20:00 18 95 Nasal Cannula 5.0 11/11/17 19:53 97.9 94 18 140/90 95 97.9 11/11/17 19:00 96 Nasal Cannula 2.0 28 11/11/17 19:00 Nasal Cannula 2.0 28 11/11/17 17:51 21 96 Nasal Cannula 5.0 11/11/17 16:48 26 96 Bi-pap 30 11/11/17 16:34 96 26 97 Facial 30 11/11/17 16:00 97.5 90 20 140/74 94 Nasal Cannula 3.0 97.5 Intake and Output 11/11/17 11/12/17 19:00 07:00 Intake Total 1755 ml 470 ml Output Total 1700 ml 500 ml Balance 55 ml -30 ml Intake Oral 1700 ml 360 ml IV Total 55 ml 110 ml Output Urine Total 1700 ml 500 ml # Voids 2 1 General Appearance: no acute distress HEENT: normocephalic Respiratory/Chest: chest wall non-tender, lungs clear Cardiovascular: normal peripheral pulses, normal rate Abdomen: normal bowel sounds, soft, non tender - thank you Laboratory Tests 11/11/17 17:20: Arterial Blood pH 7.438, Arterial Blood Partial Pressure CO2 57.7*H, Arterial Blood Partial Pressure O2 73.6L, Arterial Blood HCO3 38.1H, Arterial Blood Oxygen Saturation 95.2, Arterial Blood Base Excess 11.8, Milad Test Positive 11/12/17 04:00: Prothrombin Time 13.0H, Prothromb Time International Ratio 1.2H Current Medications Medications (Trade) Dose Ordered Sig/Abhishek Route PRN Reason Start Time Stop Time Status Last Admin Dose Admin Acetaminophen (Tylenol) 650 mg Q4H PRN ORAL Mild Pain/Temp > 100.5 11/05/17 16:15 12/05/17 16:14 Acetaminophen/ Hydrocodone Bitart ([place] 5/325) 1 tab Q4H PRN ORAL Severe Pain (Pain Scale 7-10) 11/05/17 16:15 11/12/17 16:14 11/11/17 23:28 Atorvastatin Calcium (Lipitor) 20 mg BEDTIME ORAL 11/02/17 21:00 12/02/17 20:59 11/11/17 21:52 Cefazolin Sodium 1 gm/Sodium Chloride 55 ml @ 110 mls/hr Q8HR IVPB 11/05/17 21:00 11/12/17 20:59 11/12/17 13:53 Cyanocobalamin (Vitamin B-12) 2,500 mcg DAILY ORAL 11/02/17 09:00 12/02/17 08:59 11/12/17 08:31 Dextrose (Dextrose 50%) STAT PRN IV Hypoglycemia 11/01/17 17:00 12/01/17 16:59 Docusate Sodium (Colace) 100 mg TWICE A DAY ORAL 11/10/17 09:00 12/10/17 08:59 11/12/17 08:30 Finasteride (Proscar) 5 mg QHS ORAL 11/05/17 20:00 12/05/17 19:59 11/11/17 21:52 Furosemide (Lasix) 40 mg DAILY ORAL 11/13/17 09:00 12/13/17 08:59 Glipizide (Glucotrol) 5 mg BIAC ORAL 11/02/17 06:30 12/02/17 06:29 11/12/17 05:38 Magnesium Hydroxide (Mom) 30 ml HSPRN PRN ORAL Constipation 11/11/17 17:45 12/11/17 17:44 11/12/17 00:46 Metoprolol Succinate (Toprol XL) 25 mg DAILY ORAL 11/02/17 09:00 12/02/17 08:59 11/12/17 08:31 Metoprolol Tartrate (Lopressor) 2.5 mg Q4H PRN IVP For High Blood Pressure 11/02/17 00:30 12/02/17 00:29 Multivitamins Therapeutic (Therapeutic Multivitamin) 1 ea DAILY ORAL 11/02/17 09:00 12/02/17 08:59 11/12/17 08:31 Potassium Chloride (K-Dur) 10 meq DAILY ORAL 11/02/17 09:00 12/02/17 08:59 11/12/17 08:31 Pregabalin (Lyrica) 50 mg DAILY ORAL 11/02/17 09:00 12/02/17 08:59 11/12/17 08:31 Warfarin Sodium (Coumadin per pharmacy) 1 ea DAILYPRN PRN MISC Per rx protocol 11/10/17 12:00 12/10/17 11:59 Warfarin Sodium (Coumadin) 6 mg COUMADIN ONCE ORAL 11/12/17 17:00 11/12/17 17:01 Chris Guerrero MD Nov 12, 2017 15:51
[2017-11-12 16:00] VITALS: BP 150/94
[2017-11-12] MEDS ORDERED: Warfarin Sodium 3mg ORAL ONE (17:00)
[2017-11-12 19:43] VITALS: BP 143/84
[2017-11-12] MEDS: Atorvastatin 20mg tab ORAL SCH (20:22)
[2017-11-13] VITALS (7 sets, daily range): BP systolic 138–161; BP diastolic 70–93
[2017-11-13] MEDS: Milk of Magnesia 30ml Ud ORAL PRN ×2 (04:34→21:57)
[2017-11-13] MEDS: GlipiZIDE 5mg tab ORAL SCH ×2 (05:45→17:02)
[2017-11-13 06:18] LABS: INR 1.4 (0.9-1.1)
[2017-11-13] MEDS: Furosemide 40mg tab ORAL SCH (08:29)
[2017-11-13] MEDS: Docusate 100mg/10ml Liq ORAL SCH ×2 (08:30→17:02)
[2017-11-13] MEDS: Metoprolol Succinate XL 25mg tab ORAL SCH (08:30)
[2017-11-13] MEDS: Lyrica 50mg cap ORAL SCH (08:30)
[2017-11-13] MEDS: Vitamin B-12 500mcg tab ORAL SCH (08:30)
[2017-11-13] MEDS: Multivitamin w/Minerals tab ORAL SCH (08:30)
--- NOTE | 2017-11-13 09:08 | Pulmonology Progress Note ---
Assessment/Plan Assessment/Plan IMPRESSION: 1. Status post fall. 2. Cough with phlegm production. 3. Congestive heart failure. 4. Troponin leak. 5. Cognitive impairment. 6. Pulm fibrosis DISCUSSION: Continue home medications. Has LVEF 55-60% on ECHO. BAck on coumadin Seen by urology CT with GG infiltrates and pulm HTN suggests long-standing process nasal O2 PT eval Continue diuresus BiPAP q pm Discussed with family SNF when bed available Chris Guerrero M.D. Subjective Interval Events: no new events Constitutional: Reports: no symptoms HEENT: Repors: no symptoms Respiratory: Reports: no symptoms Cardiovascular: Reports: no symptoms Allergies: Coded Allergies: No Known Allergies (Unverified , 12/21/15) Objective Last 24 Hour Vital Signs Date Time Temp Pulse Resp B/P (MAP) Pulse Ox O2 Delivery O2 Flow Rate FiO2 11/13/17 08:30 103 147/70 11/13/17 08:00 98.9 103 26 147/70 96 Venturi Mask 40 98.9 11/13/17 04:02 97.2 89 24 150/86 94 Venturi Mask 97.2 11/13/17 03:53 101 11/13/17 00:14 207.0 104 24 143/93 94 Venturi Mask 4.0 40 207.0 11/12/17 23:56 99 11/12/17 19:48 84 11/12/17 19:43 97.7 87 18 143/84 95 Nasal Cannula 4.0 97.7 11/12/17 19:00 97 Nasal Cannula 5.0 40 11/12/17 19:00 Nasal Cannula 5.0 40 11/12/17 16:00 95.9 90 20 150/94 96 Nasal Cannula 5.0 95.9 11/12/17 15:44 94 11/12/17 12:03 88 11/12/17 12:00 95.9 97 20 140/80 97 Nasal Cannula 5.0 95.9 Intake and Output 11/12/17 11/13/17 19:00 07:00 Intake Total 643 ml 120 ml Output Total 1750 ml 600 ml Balance -1107 ml -480 ml Intake Oral 588 ml 120 ml IV Total 55 ml Output Urine Total 1750 ml 600 ml General Appearance: no acute distress HEENT: normocephalic Respiratory/Chest: chest wall non-tender, crackles/rales Cardiovascular: normal peripheral pulses Abdomen: normal bowel sounds Laboratory Tests 11/13/17 05:10: Prothrombin Time 14.6H, Prothromb Time International Ratio 1.4H Current Medications Medications (Trade) Dose Ordered Sig/Abhishek Route PRN Reason Start Time Stop Time Status Last Admin Dose Admin Acetaminophen (Tylenol) 650 mg Q4H PRN ORAL Mild Pain/Temp > 100.5 11/05/17 16:15 12/05/17 16:14 11/13/17 02:38 Atorvastatin Calcium (Lipitor) 20 mg BEDTIME ORAL 11/02/17 21:00 12/02/17 20:59 11/12/17 20:22 Cyanocobalamin (Vitamin B-12) 2,500 mcg DAILY ORAL 11/02/17 09:00 12/02/17 08:59 11/13/17 08:30 Dextrose (Dextrose 50%) STAT PRN IV Hypoglycemia 11/01/17 17:00 12/01/17 16:59 Docusate Sodium (Colace) 100 mg TWICE A DAY ORAL 11/10/17 09:00 12/10/17 08:59 11/13/17 08:30 Finasteride (Proscar) 5 mg QHS ORAL 11/05/17 20:00 12/05/17 19:59 11/12/17 20:22 Furosemide (Lasix) 40 mg DAILY ORAL 11/13/17 09:00 12/13/17 08:59 11/13/17 08:29 Glipizide (Glucotrol) 5 mg BIAC ORAL 11/02/17 06:30 12/02/17 06:29 11/13/17 05:45 Magnesium Hydroxide (Mom) 30 ml HSPRN PRN ORAL Constipation 11/11/17 17:45 12/11/17 17:44 11/13/17 04:34 Metoprolol Succinate (Toprol XL) 25 mg DAILY ORAL 11/02/17 09:00 12/02/17 08:59 11/13/17 08:30 Metoprolol Tartrate (Lopressor) 2.5 mg Q4H PRN IVP For High Blood Pressure 11/02/17 00:30 12/02/17 00:29 Multivitamins Therapeutic (Therapeutic Multivitamin) 1 ea DAILY ORAL 11/02/17 09:00 12/02/17 08:59 11/13/17 08:30 Potassium Chloride (K-Dur) 10 meq DAILY ORAL 11/02/17 09:00 12/02/17 08:59 11/13/17 08:29 Pregabalin (Lyrica) 50 mg DAILY ORAL 11/02/17 09:00 12/02/17 08:59 11/13/17 08:30 Warfarin Sodium (Coumadin per pharmacy) 1 ea DAILYPRN PRN MISC Per rx protocol 11/10/17 12:00 12/10/17 11:59 Warfarin Sodium (Coumadin) 6 mg COUMADIN ONCE ORAL 11/13/17 17:00 11/13/17 17:01 Chris Guerrero MD Nov 13, 2017 09:08
--- NOTE | 2017-11-13 10:15 | Urology Progress Note ---
Assessment/Plan Assessment/Plan 1. Gross hematuria secondary to [place] which is slowly resolving. 2. Benign prostatic hypertrophy. 3. Urinary retention. 4. Probable neurogenic bladder. 5. Pyuria. 6. Proteinuria. monitor clinically cath secured to pt's leg hand irrigate PRN proscar added s/p empiric abx, finished course consider renal imaging, u/s or CT restarted on coumadin Subjective Allergies: Coded Allergies: No Known Allergies (Unverified , 12/21/15) Subjective all noted Objective Last 24 Hour Vital Signs Date Time Temp Pulse Resp B/P (MAP) Pulse Ox O2 Delivery O2 Flow Rate FiO2 11/13/17 08:30 103 147/70 11/13/17 08:00 98.9 103 26 147/70 96 Venturi Mask 40 98.9 11/13/17 08:00 96 11/13/17 04:02 97.2 89 24 150/86 94 Venturi Mask 97.2 11/13/17 03:53 101 11/13/17 00:14 207.0 104 24 143/93 94 Venturi Mask 4.0 40 207.0 11/12/17 23:56 99 11/12/17 19:48 84 11/12/17 19:43 97.7 87 18 143/84 95 Nasal Cannula 4.0 97.7 11/12/17 19:00 97 Nasal Cannula 5.0 40 11/12/17 19:00 Nasal Cannula 5.0 40 11/12/17 16:00 95.9 90 20 150/94 96 Nasal Cannula 5.0 95.9 11/12/17 15:44 94 11/12/17 12:03 88 11/12/17 12:00 95.9 97 20 140/80 97 Nasal Cannula 5.0 95.9 Intake and Output 11/12/17 11/13/17 19:00 07:00 Intake Total 643 ml 120 ml Output Total 1750 ml 600 ml Balance -1107 ml -480 ml Intake Oral 588 ml 120 ml IV Total 55 ml Output Urine Total 1750 ml 600 ml Microbiology Date/Time Source Procedure Growth Status 11/06/17 15:30 Indwelling Cath Urine Culture - Final NO GROWTH AFTER 48 HOURS Complete Current Medications Medications (Trade) Dose Ordered Sig/Abhishek Route PRN Reason Start Time Stop Time Status Last Admin Dose Admin Acetaminophen (Tylenol) 650 mg Q4H PRN ORAL Mild Pain/Temp > 100.5 11/05/17 16:15 12/05/17 16:14 11/13/17 02:38 Atorvastatin Calcium (Lipitor) 20 mg BEDTIME ORAL 11/02/17 21:00 12/02/17 20:59 11/12/17 20:22 Cyanocobalamin (Vitamin B-12) 2,500 mcg DAILY ORAL 11/02/17 09:00 12/02/17 08:59 11/13/17 08:30 Dextrose (Dextrose 50%) STAT PRN IV Hypoglycemia 11/01/17 17:00 12/01/17 16:59 Docusate Sodium (Colace) 100 mg TWICE A DAY ORAL 11/10/17 09:00 12/10/17 08:59 11/13/17 08:30 Finasteride (Proscar) 5 mg QHS ORAL 11/05/17 20:00 12/05/17 19:59 11/12/17 20:22 Furosemide (Lasix) 40 mg DAILY ORAL 11/13/17 09:00 12/13/17 08:59 11/13/17 08:29 Glipizide (Glucotrol) 5 mg BIAC ORAL 11/02/17 06:30 12/02/17 06:29 11/13/17 05:45 Magnesium Hydroxide (Mom) 30 ml HSPRN PRN ORAL Constipation 11/11/17 17:45 12/11/17 17:44 11/13/17 04:34 Metoprolol Succinate (Toprol XL) 25 mg DAILY ORAL 11/02/17 09:00 12/02/17 08:59 11/13/17 08:30 Metoprolol Tartrate (Lopressor) 2.5 mg Q4H PRN IVP For High Blood Pressure 11/02/17 00:30 12/02/17 00:29 Multivitamins Therapeutic (Therapeutic Multivitamin) 1 ea DAILY ORAL 11/02/17 09:00 12/02/17 08:59 11/13/17 08:30 Potassium Chloride (K-Dur) 10 meq DAILY ORAL 11/02/17 09:00 12/02/17 08:59 11/13/17 08:29 Pregabalin (Lyrica) 50 mg DAILY ORAL 11/02/17 09:00 12/02/17 08:59 11/13/17 08:30 Warfarin Sodium (Coumadin per pharmacy) 1 ea DAILYPRN PRN MISC Per rx protocol 11/10/17 12:00 12/10/17 11:59 Warfarin Sodium (Coumadin) 6 mg COUMADIN ONCE ORAL 11/13/17 17:00 11/13/17 17:01 Laboratory Tests 11/13/17 05:10: Prothrombin Time 14.6H, Prothromb Time International Ratio 1.4H Height (Feet): 5 Height (Inches): 9.00 Weight (Pounds): 280 Objective exam stable, urine clearing PATRICE GARCIA Nov 13, 2017 10:15
[2017-11-13] MEDS ORDERED: Fleet's Mineral Oil Enema RECTAL ONE (11:30)
[2017-11-13] MEDS: Fleet's Mineral Oil Enema RECTAL PRN ×4 (14:05→16:00)
[2017-11-13] MEDS ORDERED: Warfarin Sodium 3mg ORAL ONE (17:00)
[2017-11-13] MEDS ORDERED: Lactulose 20gm/30ml UDC ORAL PRN (19:00)
[2017-11-13] MEDS ORDERED: Fleet's Enema 133ml RECTAL ONE (19:30)
--- NOTE | 2017-11-13 20:01 | Cardiology Progress Note ---
Assessment/Plan Assessment/Plan 1. Fall. 2. Cough with purulent sputum. 3. Possible heart failure. 4. Abnormal cardiac enzymes demand related 5. Thrombocytopenia 6. pulm htn 7. ? pulm fibrosis echo shows normal wall motion ekg no st t wave abn trop min abn likely demand related no peak no hermilo to suggest a coronary syndrome crackles sound coarse lasix 40 mg dialy po bp is elevated will add low dose norvasc tele afib lab in am snf apprently once he has bm Objective Last 24 Hour Vital Signs Date Time Temp Pulse Resp B/P (MAP) Pulse Ox O2 Delivery O2 Flow Rate FiO2 11/13/17 17:45 156/91 11/13/17 17:16 95 161/90 11/13/17 16:00 99 11/13/17 16:00 97.6 95 24 161/90 96 Venturi Mask 50 97.6 11/13/17 12:00 90 11/13/17 12:00 96.1 104 26 152/92 95 Venturi Mask 50 96.1 11/13/17 08:30 103 147/70 11/13/17 08:00 98.9 103 26 147/70 96 Venturi Mask 40 98.9 11/13/17 08:00 96 11/13/17 04:02 97.2 89 24 150/86 94 Venturi Mask 97.2 11/13/17 03:53 101 11/13/17 00:14 207.0 104 24 143/93 94 Venturi Mask 4.0 40 207.0 11/12/17 23:56 99 General Appearance: alert Intake and Output 11/12/17 11/13/17 19:00 07:00 Intake Total 643 ml 120 ml Output Total 1750 ml 600 ml Balance -1107 ml -480 ml Intake Oral 588 ml 120 ml IV Total 55 ml Output Urine Total 1750 ml 600 ml Laboratory Tests Test 11/13/17 05:10 Prothrombin Time 14.6 SEC (9.30-11.50) H Prothromb Time International Ratio 1.4 (0.9-1.1) H NAOMIE DO Nov 13, 2017 20:01
[2017-11-13] MEDS: Atorvastatin 20mg tab ORAL SCH (20:19)
[2017-11-14] VITALS: BP 145/88
[2017-11-14 04:00] VITALS: BP 148/85
[2017-11-14 05:46] LABS: INR 1.5 (0.9-1.1)
[2017-11-14] MEDS: GlipiZIDE 5mg tab ORAL SCH ×2 (07:35→17:14)
[2017-11-14 08:00] VITALS: BP 152/84
[2017-11-14] MEDS: Vitamin B-12 500mcg tab ORAL SCH (08:19)
[2017-11-14] MEDS: Multivitamin w/Minerals tab ORAL SCH (08:19)
[2017-11-14] MEDS: Docusate 100mg/10ml Liq ORAL SCH ×2 (08:19→17:14)
[2017-11-14] MEDS: Lyrica 50mg cap ORAL SCH (08:20)
[2017-11-14] MEDS: Metoprolol Succinate XL 25mg tab ORAL SCH (08:20)
[2017-11-14] MEDS: Furosemide 40mg tab ORAL SCH (08:24)
--- NOTE | 2017-11-14 09:16 | Urology Progress Note ---
Assessment/Plan Assessment/Plan 1. Gross hematuria secondary to [place] which is slowly resolving. 2. Benign prostatic hypertrophy. 3. Urinary retention. 4. Probable neurogenic bladder. 5. Pyuria. 6. Proteinuria. monitor clinically cath secured to pt's leg hand irrigate PRN cont proscar add flomax s/p empiric abx, finished course consider renal imaging, u/s or CT restarted on coumadin Subjective Allergies: Coded Allergies: No Known Allergies (Unverified , 12/21/15) Subjective all noted Objective Last 24 Hour Vital Signs Date Time Temp Pulse Resp B/P (MAP) Pulse Ox O2 Delivery O2 Flow Rate FiO2 11/14/17 08:20 109 152/84 11/14/17 08:20 108 152/84 11/14/17 08:14 Bi-pap 11/14/17 08:00 97.0 97 19 152/84 97 Bi-pap 40 97.0 11/14/17 07:23 94 25 97 Facial 40 11/14/17 07:15 97 Bi-pap 11/14/17 05:16 92 21 98 Facial 40 11/14/17 04:00 97.6 76 22 148/85 95 Bi-pap 40 97.6 11/14/17 03:49 102 11/14/17 00:45 96 18 99 Facial 40 11/14/17 00:16 90 11/14/17 00:00 98.4 85 24 145/88 100 Bi-pap 40 98.4 11/13/17 22:58 50 11/13/17 22:37 110 16 Bi-pap 100 11/13/17 22:37 110 16 100 Facial 100 11/13/17 20:30 96 Nasal Cannula 8.0 40 11/13/17 20:30 Nasal Cannula 8.0 40 11/13/17 20:00 97.4 78 26 138/82 95 Nasal Cannula 5.0 97.4 11/13/17 19:43 100 11/13/17 17:45 156/91 11/13/17 17:16 95 161/90 11/13/17 16:00 99 11/13/17 16:00 97.6 95 24 161/90 96 Venturi Mask 50 97.6 11/13/17 12:00 90 11/13/17 12:00 96.1 104 26 152/92 95 Venturi Mask 50 96.1 Intake and Output 11/13/17 11/14/17 19:00 07:00 Intake Total 80 ml 100 ml Output Total 200 ml 350 ml Balance -120 ml -250 ml Intake Oral 80 ml 100 ml Output Urine Total 200 ml 350 ml Microbiology Date/Time Source Procedure Growth Status 11/06/17 15:30 Indwelling Cath Urine Culture - Final NO GROWTH AFTER 48 HOURS Complete Current Medications Medications (Trade) Dose Ordered Sig/Abhishek Route PRN Reason Start Time Stop Time Status Last Admin Dose Admin Acetaminophen (Tylenol) 650 mg Q4H PRN ORAL Mild Pain/Temp > 100.5 11/05/17 16:15 12/05/17 16:14 11/13/17 02:38 Amlodipine Besylate (Norvasc) 2.5 mg DAILY ORAL 11/14/17 09:00 12/14/17 08:59 11/14/17 08:20 Atorvastatin Calcium (Lipitor) 20 mg BEDTIME ORAL 11/02/17 21:00 12/02/17 20:59 11/13/17 20:19 Cyanocobalamin (Vitamin B-12) 2,500 mcg DAILY ORAL 11/02/17 09:00 12/02/17 08:59 11/14/17 08:19 Dextrose (Dextrose 50%) STAT PRN IV Hypoglycemia 11/01/17 17:00 12/01/17 16:59 Docusate Sodium (Colace) 100 mg TWICE A DAY ORAL 11/10/17 09:00 12/10/17 08:59 11/14/17 08:19 Finasteride (Proscar) 5 mg QHS ORAL 11/05/17 20:00 12/05/17 19:59 11/13/17 20:19 Furosemide (Lasix) 40 mg DAILY ORAL 11/13/17 09:00 12/13/17 08:59 11/14/17 08:24 Glipizide (Glucotrol) 5 mg BIAC ORAL 11/02/17 06:30 12/02/17 06:29 11/14/17 07:35 Lactulose (Cephulac) 30 gm Q4H PRN ORAL Constipation 11/13/17 19:00 12/13/17 18:59 11/14/17 08:18 Magnesium Hydroxide (Mom) 30 ml HSPRN PRN ORAL Constipation 11/11/17 17:45 12/11/17 17:44 11/13/17 21:57 Metoprolol Succinate (Toprol XL) 25 mg DAILY ORAL 11/02/17 09:00 12/02/17 08:59 11/14/17 08:20 Metoprolol Tartrate (Lopressor) 2.5 mg Q4H PRN IVP For High Blood Pressure 11/02/17 00:30 12/02/17 00:29 11/13/17 17:16 Multivitamins Therapeutic (Therapeutic Multivitamin) 1 ea DAILY ORAL 11/02/17 09:00 12/02/17 08:59 11/14/17 08:19 Potassium Chloride (K-Dur) 10 meq DAILY ORAL 11/02/17 09:00 12/02/17 08:59 11/14/17 08:19 Pregabalin (Lyrica) 50 mg DAILY ORAL 11/02/17 09:00 12/02/17 08:59 11/14/17 08:20 Warfarin Sodium (Coumadin per pharmacy) 1 ea DAILYPRN PRN MISC Per rx protocol 11/10/17 12:00 12/10/17 11:59 Warfarin Sodium (Coumadin) 7.5 mg COUMADIN ONCE ORAL 11/14/17 17:00 11/14/17 17:01 Laboratory Tests 11/13/17 22:50: Arterial Blood pH 7.323L, Arterial Blood Partial Pressure CO2 89.9*H, Arterial Blood Partial Pressure O2 385.2H, Arterial Blood HCO3 45.6H, Arterial Blood Oxygen Saturation 99.6H, Arterial Blood Base Excess 15.4, Milad Test Positive 11/14/17 00:35: Arterial Blood pH 7.362, Arterial Blood Partial Pressure CO2 84.5*H, Arterial Blood Partial Pressure O2 102.5H, Arterial Blood HCO3 46.9H, Arterial Blood Oxygen Saturation 97.1, Arterial Blood Base Excess 17.4, Milad Test Positive 11/14/17 05:05: Prothrombin Time 16.1H, Prothromb Time International Ratio 1.5H Height (Feet): 5 Height (Inches): 9.00 Weight (Pounds): 280 Objective exam stable, urine clearing PATRICE GARCIA Nov 14, 2017 09:16
--- NOTE | 2017-11-14 09:58 | Pulmonology Progress Note ---
Assessment/Plan Assessment/Plan IMPRESSION: 1. Status post fall. 2. Cough with phlegm production. 3. Congestive heart failure. 4. Troponin leak. 5. Cognitive impairment. 6. Pulm fibrosis DISCUSSION: Continue home medications. Has LVEF 55-60% on ECHO. Back on coumadin Seen by urology CT with GG infiltrates and pulm HTN suggests long-standing process nasal O2 PT eval Continue diuresus BiPAP q pm Javier consult GI for constipation Check CXR Discussed with family SNF when bed available Chris Guerrero M.D. Subjective Interval Events: Remaions constipated; poor PO intake Constitutional: Reports: no symptoms HEENT: Repors: no symptoms Respiratory: Reports: shortness of breath Cardiovascular: Reports: no symptoms Gastrointestinal/Abdominal: Reports: no symptoms Allergies: Coded Allergies: No Known Allergies (Unverified , 12/21/15) Objective Last 24 Hour Vital Signs Date Time Temp Pulse Resp B/P (MAP) Pulse Ox O2 Delivery O2 Flow Rate FiO2 11/14/17 08:20 109 152/84 11/14/17 08:20 108 152/84 11/14/17 08:14 Bi-pap 11/14/17 08:00 97.0 97 19 152/84 97 Bi-pap 40 97.0 11/14/17 07:23 94 25 97 Facial 40 11/14/17 07:15 97 Bi-pap 11/14/17 05:16 92 21 98 Facial 40 11/14/17 04:00 97.6 76 22 148/85 95 Bi-pap 40 97.6 11/14/17 03:49 102 11/14/17 00:45 96 18 99 Facial 40 11/14/17 00:16 90 11/14/17 00:00 98.4 85 24 145/88 100 Bi-pap 40 98.4 11/13/17 22:58 50 11/13/17 22:37 110 16 Bi-pap 100 11/13/17 22:37 110 16 100 Facial 100 11/13/17 20:30 96 Nasal Cannula 8.0 40 11/13/17 20:30 Nasal Cannula 8.0 40 11/13/17 20:00 97.4 78 26 138/82 95 Nasal Cannula 5.0 97.4 11/13/17 19:43 100 11/13/17 17:45 156/91 11/13/17 17:16 95 161/90 11/13/17 16:00 99 11/13/17 16:00 97.6 95 24 161/90 96 Venturi Mask 50 97.6 11/13/17 12:00 90 11/13/17 12:00 96.1 104 26 152/92 95 Venturi Mask 50 96.1 Intake and Output 11/13/17 11/14/17 19:00 07:00 Intake Total 80 ml 100 ml Output Total 200 ml 350 ml Balance -120 ml -250 ml Intake Oral 80 ml 100 ml Output Urine Total 200 ml 350 ml General Appearance: no acute distress HEENT: normocephalic Respiratory/Chest: chest wall non-tender, decreased breath sounds, crackles/ rales Cardiovascular: normal peripheral pulses, normal rate Abdomen: normal bowel sounds Laboratory Tests 11/13/17 22:50: Arterial Blood pH 7.323L, Arterial Blood Partial Pressure CO2 89.9*H, Arterial Blood Partial Pressure O2 385.2H, Arterial Blood HCO3 45.6H, Arterial Blood Oxygen Saturation 99.6H, Arterial Blood Base Excess 15.4, Milad Test Positive 11/14/17 00:35: Arterial Blood pH 7.362, Arterial Blood Partial Pressure CO2 84.5*H, Arterial Blood Partial Pressure O2 102.5H, Arterial Blood HCO3 46.9H, Arterial Blood Oxygen Saturation 97.1, Arterial Blood Base Excess 17.4, Milad Test Positive 11/14/17 05:05: Prothrombin Time 16.1H, Prothromb Time International Ratio 1.5H Current Medications Medications (Trade) Dose Ordered Sig/Abhishek Route PRN Reason Start Time Stop Time Status Last Admin Dose Admin Acetaminophen (Tylenol) 650 mg Q4H PRN ORAL Mild Pain/Temp > 100.5 11/05/17 16:15 12/05/17 16:14 11/13/17 02:38 Amlodipine Besylate (Norvasc) 2.5 mg DAILY ORAL 11/14/17 09:00 12/14/17 08:59 11/14/17 08:20 Atorvastatin Calcium (Lipitor) 20 mg BEDTIME ORAL 11/02/17 21:00 12/02/17 20:59 11/13/17 20:19 Cyanocobalamin (Vitamin B-12) 2,500 mcg DAILY ORAL 11/02/17 09:00 12/02/17 08:59 11/14/17 08:19 Dextrose (Dextrose 50%) STAT PRN IV Hypoglycemia 11/01/17 17:00 12/01/17 16:59 Docusate Sodium (Colace) 100 mg TWICE A DAY ORAL 11/10/17 09:00 12/10/17 08:59 11/14/17 08:19 Finasteride (Proscar) 5 mg QHS ORAL 11/05/17 20:00 12/05/17 19:59 11/13/17 20:19 Furosemide (Lasix) 40 mg DAILY ORAL 11/13/17 09:00 12/13/17 08:59 11/14/17 08:24 Glipizide (Glucotrol) 5 mg BIAC ORAL 11/02/17 06:30 12/02/17 06:29 11/14/17 07:35 Lactulose (Cephulac) 30 gm Q4H PRN ORAL Constipation 11/13/17 19:00 12/13/17 18:59 11/14/17 08:18 Magnesium Hydroxide (Mom) 30 ml HSPRN PRN ORAL Constipation 11/11/17 17:45 12/11/17 17:44 11/13/17 21:57 Metoprolol Succinate (Toprol XL) 25 mg DAILY ORAL 11/02/17 09:00 12/02/17 08:59 11/14/17 08:20 Metoprolol Tartrate (Lopressor) 2.5 mg Q4H PRN IVP For High Blood Pressure 11/02/17 00:30 12/02/17 00:29 11/13/17 17:16 Multivitamins Therapeutic (Therapeutic Multivitamin) 1 ea DAILY ORAL 11/02/17 09:00 12/02/17 08:59 11/14/17 08:19 Potassium Chloride (K-Dur) 10 meq DAILY ORAL 11/02/17 09:00 12/02/17 08:59 11/14/17 08:19 Pregabalin (Lyrica) 50 mg DAILY ORAL 11/02/17 09:00 12/02/17 08:59 11/14/17 08:20 Warfarin Sodium (Coumadin per pharmacy) 1 ea DAILYPRN PRN MISC Per rx protocol 11/10/17 12:00 12/10/17 11:59 Warfarin Sodium (Coumadin) 7.5 mg COUMADIN ONCE ORAL 11/14/17 17:00 11/14/17 17:01 Chris Guerrero MD Nov 14, 2017 09:58
--- NOTE | 2017-11-14 11:33 | GI Initial Consult Note ---
RosadoFe Franklyn N.PChikis 11/14/17 1132: History of Present Illness General Date patient seen: Nov 14, 2017 Time patient seen: 11:24 Reason for Hospitalization: General Complaint Referring physician: CHRIS SIMPSON Reason for Consultation: CONSTIPATION Present Illness HPI Patient is 87-year-old male brought in by EMS after increased difficulty breathing and recent fall. The patient prior history of CHF. Patient was noted to have mostly been bedbound and had been having hospice care with family member. The patient's family member states that she is no longer able to care for the patient. Patient noted markedly short of breath. The patient had prior history of atrial fibrillation and had been taking Coumadin regularly. The patient had been attempting to walk to the bathroom with a walker and subsequently fell onto the walker. Per patient did not lose consciousness or have any head trauma. Patient had prior history of diabetes as well as dementia. GI consulted for constipation. Pt seen, ROS limited NAD with family/friend by bedside. Per report, the patient has been constipated with no reported BM x 8 days. RN reports multiple medication and enemas given with no effect. Abdomen soft, non tender, non distended, non tympanic. All other history obtained from chart. Unknown history of endoscopy / colonoscopies. Home Meds Active Scripts Furosemide* (LASIX*) 20 Mg Tablet, 20 MG ORAL DAILY for 30 Days, TAB Prov:Chris Simpson MD 11/11/17 Finasteride (FINASTERIDE) 5 Mg Tablet, 5 MG ORAL QHS for 30 Days, TAB Prov:Chris Simpson MD 11/11/17 Reported Medications Ipratropium/Albuterol Sulfate (DuoNeb 0.5-3(2.5)mg/3ml) 3 Ml Ampul.neb, 3 ML HHN Q4HR for Shortness of Breath, EA 11/02/17 Glipizide* (GLIPIZIDE*) 5 Mg Tablet, 5 MG ORAL BIDAC, TAB 11/01/17 Multivitamin with Minerals (Multivitamins with Minerals) 1 Each Tablet, 1 TAB ORAL DAILY, TAB 12/21/15 Cyanocobalamin (Vitamin B-12) (Vitamin B12) 2,500 Mcg Tablet, 100 MG PO, TAB 12/21/15 Omeprazole (PRILOSEC) 20 Mg Capsule.dr, 20 MG ORAL DAILY, CAP 12/21/15 Pregabalin (Lyrica) 50 Mg Cap, 50 MG ORAL DAILY, CAP 12/21/15 Potassium Chloride (POTASSIUM CHLORIDE) 8 Meq Tablet.er, 8 MEQ PO, TAB 12/21/15 Furosemide* (LASIX*) 20 Mg Tablet, 20 MG ORAL DAILY, TAB 12/21/15 Linagliptin (TRADJENTA) 5 Mg Tablet, 5 MG PO, TAB 12/21/15 Glimepiride* (AMARYL*) 4 Mg Tablet, 4 MG ORAL BEFORE BREAKFAST, TAB 12/21/15 Rosuvastatin Calcium (Crestor) 10 Mg Tab, 10 MG ORAL DAILY, TAB 12/21/15 Metoprolol Succinate* (TOPROL XL*) 25 Mg Tab.er.24h, 25 MG ORAL DAILY, TAB 12/21/15 Warfarin Sod* (COUMADIN*) 4 Mg Tablet, 4 MG ORAL DAILY, TAB 12/21/15 Discontinued Reported Medications Warfarin Sod* (COUMADIN*) 5 Mg Tablet, 5 MG ORAL DAILY, TAB 12/21/15 Med list reviewed/reconciled: Yes Allergies: Coded Allergies: No Known Allergies (Unverified , 12/21/15) Patient History Limited by: medical condition History Provided By: Medical Record PMH Narrative Past Medical History: see triage record Reviewed Nursing Documentation: PMH: Agreed, PSxH: Agreed Review of Systems All Other Systems: limited Physical Exam Vital Signs Date Time Temp Pulse Resp B/P (MAP) Pulse Ox O2 Delivery O2 Flow Rate FiO2 11/10/17 07:51 96 Nasal Cannula 2.0 28 11/10/17 08:00 97.7 86 18 132/72 97.7 Sp02 EP Interpretation: reviewed, normal Labs Laboratory Tests Test 11/13/17 22:50 11/14/17 00:35 11/14/17 05:05 Arterial Blood pH 7.323 (7.350-7.450) 7.362 (7.350-7.450) Arterial Blood Partial Pressure CO2 89.9 mmHg (35.0-45.0) *H 84.5 mmHg (35.0-45.0) *H Arterial Blood Partial Pressure O2 385.2 mmHg (75.0-100.0) H 102.5 mmHg (75.0-100.0) H Arterial Blood HCO3 45.6 mmol/L (22.0-26.0) H 46.9 mmol/L (22.0-26.0) H Arterial Blood Oxygen Saturation 99.6 % (92.0-98.0) H 97.1 % (92.0-98.0) Arterial Blood Base Excess 15.4 17.4 Milad Test Positive Positive Prothrombin Time 16.1 SEC (9.30-11.50) H Prothromb Time International Ratio 1.5 (0.9-1.1) H General Appearance: well appearing, no apparent distress, alert Head: normocephalic EENT: PERRL/EOMI, normal ENT inspection Neck: supple Respiratory: no respiratory distress, other - NC Cardiovascular: normal rate Gastrointestinal: normal inspection, non tender, soft, normal bowel sounds, non -distended Rectal: deferred Genitourinary: deferred Musculoskeletal: normal inspection, back normal Neurologic: alert, responsive Skin: normal inspection, normal color, no rash, warm/dry, palpation normal, well hydrated Lymphatic: normal inspection, no adenopathy Current Medications Current Medications Medications (Trade) Dose Ordered Sig/Abhishek Route PRN Reason Start Time Stop Time Status Last Admin Dose Admin Acetaminophen (Tylenol) 650 mg Q4H PRN ORAL Mild Pain/Temp > 100.5 11/05/17 16:15 12/05/17 16:14 11/13/17 02:38 Amlodipine Besylate (Norvasc) 2.5 mg DAILY ORAL 11/14/17 09:00 12/14/17 08:59 11/14/17 08:20 Atorvastatin Calcium (Lipitor) 20 mg BEDTIME ORAL 11/02/17 21:00 12/02/17 20:59 11/13/17 20:19 Cyanocobalamin (Vitamin B-12) 2,500 mcg DAILY ORAL 11/02/17 09:00 12/02/17 08:59 11/14/17 08:19 Dextrose (Dextrose 50%) STAT PRN IV Hypoglycemia 11/01/17 17:00 12/01/17 16:59 Docusate Sodium (Colace) 100 mg TWICE A DAY ORAL 11/10/17 09:00 12/10/17 08:59 11/14/17 08:19 Finasteride (Proscar) 5 mg QHS ORAL 11/05/17 20:00 12/05/17 19:59 11/13/17 20:19 Furosemide (Lasix) 40 mg DAILY ORAL 11/13/17 09:00 12/13/17 08:59 11/14/17 08:24 Glipizide (Glucotrol) 5 mg BIAC ORAL 11/02/17 06:30 12/02/17 06:29 11/14/17 07:35 Lactulose (Cephulac) 30 gm Q4H PRN ORAL Constipation 11/13/17 19:00 12/13/17 18:59 11/14/17 08:18 Magnesium Hydroxide (Mom) 30 ml HSPRN PRN ORAL Constipation 11/11/17 17:45 12/11/17 17:44 11/13/17 21:57 Metoprolol Succinate (Toprol XL) 25 mg DAILY ORAL 11/02/17 09:00 12/02/17 08:59 11/14/17 08:20 Metoprolol Tartrate (Lopressor) 2.5 mg Q4H PRN IVP For High Blood Pressure 11/02/17 00:30 12/02/17 00:29 11/13/17 17:16 Multivitamins Therapeutic (Therapeutic Multivitamin) 1 ea DAILY ORAL 11/02/17 09:00 12/02/17 08:59 11/14/17 08:19 Potassium Chloride (K-Dur) 10 meq DAILY ORAL 11/02/17 09:00 12/02/17 08:59 11/14/17 08:19 Pregabalin (Lyrica) 50 mg DAILY ORAL 11/02/17 09:00 12/02/17 08:59 11/14/17 08:20 Warfarin Sodium (Coumadin per pharmacy) 1 ea DAILYPRN PRN MISC Per rx protocol 11/10/17 12:00 12/10/17 11:59 Warfarin Sodium (Coumadin) 7.5 mg COUMADIN ONCE ORAL 11/14/17 17:00 11/14/17 17:01 GI: Plan Problems: (1) Anemia (2) Constipated (3) Anasarca 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 Rosa. Thank you for this patient referral, we will follow. EASTON ROSA 11/18/17 1007: History of Present Illness General Reason for Hospitalization: General Complaint Present Illness Home Meds Active Scripts Furosemide* (LASIX*) 20 Mg Tablet, 20 MG ORAL DAILY for 30 Days, TAB Prov:Chris Simpson MD 11/11/17 Finasteride (FINASTERIDE) 5 Mg Tablet, 5 MG ORAL QHS for 30 Days, TAB Prov:Chris Simpson MD 11/11/17 Reported Medications Ipratropium/Albuterol Sulfate (DuoNeb 0.5-3(2.5)mg/3ml) 3 Ml Ampul.neb, 3 ML HHN Q4HR for Shortness of Breath, EA 11/02/17 Glipizide* (GLIPIZIDE*) 5 Mg Tablet, 5 MG ORAL BIDAC, TAB 11/01/17 Multivitamin with Minerals (Multivitamins with Minerals) 1 Each Tablet, 1 TAB ORAL DAILY, TAB 12/21/15 Cyanocobalamin (Vitamin B-12) (Vitamin B12) 2,500 Mcg Tablet, 100 MG PO, TAB 12/21/15 Omeprazole (PRILOSEC) 20 Mg Capsule.dr, 20 MG ORAL DAILY, CAP 12/21/15 Pregabalin (Lyrica) 50 Mg Cap, 50 MG ORAL DAILY, CAP 12/21/15 Potassium Chloride (POTASSIUM CHLORIDE) 8 Meq Tablet.er, 8 MEQ PO, TAB 12/21/15 Furosemide* (LASIX*) 20 Mg Tablet, 20 MG ORAL DAILY, TAB 12/21/15 Linagliptin (TRADJENTA) 5 Mg Tablet, 5 MG PO, TAB 12/21/15 Glimepiride* (AMARYL*) 4 Mg Tablet, 4 MG ORAL BEFORE BREAKFAST, TAB 12/21/15 Rosuvastatin Calcium (Crestor) 10 Mg Tab, 10 MG ORAL DAILY, TAB 12/21/15 Metoprolol Succinate* (TOPROL XL*) 25 Mg Tab.er.24h, 25 MG ORAL DAILY, TAB 12/21/15 Warfarin Sod* (COUMADIN*) 4 Mg Tablet, 4 MG ORAL DAILY, TAB 12/21/15 Discontinued Reported Medications Warfarin Sod* (COUMADIN*) 5 Mg Tablet, 5 MG ORAL DAILY, TAB 12/21/15 Allergies: Coded Allergies: No Known Allergies (Unverified , 12/21/15) GI: Plan Plan The patient was seen and examined at bedside and all new and available data was reviewed in the patients chart. I agree with the above findings, impression and plan. (Patient seen earlier today. Signature stamp does not reflect patient encounter time.). - [facility] Franklny Landaverde Nov 14, 2017 11:32 EASTON ROSA Nov 18, 2017 10:07
[2017-11-14 12:00] VITALS: BP 123/75
--- NOTE | 2017-11-14 12:38 | Diagnostic Imaging Report ---
Indication: Shortness of breath Technique: One view of the chest Comparison: 11/09/2017 Findings: Suboptimal inspiration. Bilateral diffuse interstitial and airspace disease persists, probably unchanged allowing for differences in degree of inspiration. The left costophrenic angle remains blunted, small effusion a possibility. The heart is borderline enlarged. The aorta is tortuous and calcified Impression: Unchanged, over 5 days, findings as above.
--- NOTE | 2017-11-14 12:39 | Diagnostic Imaging Report ---
Indication: Pain, abdominal distention Technique: Supine view of the abdomen Comparison: none Findings: Exam is somewhat limited due to patient body habitus and use of portable imaging. The gas pattern is grossly unremarkable. No unusual masses or calcifications. A Wallis catheter is present in the bladder Impression: No definite acute process. Findings as noted
[2017-11-14] MEDS ORDERED: Nulytely 4L ORAL SCH (14:00)
[2017-11-14 16:00] VITALS: BP 148/95
[2017-11-14] MEDS ORDERED: Warfarin Sodium 7.5mg ORAL ONE (17:00)
[2017-11-14 20:00] VITALS: BP 152/90
[2017-11-14] MEDS ORDERED: Lactulose 20gm/30ml UDC ORAL PRN (20:30)
[2017-11-14] MEDS ORDERED: Metoprolol 5mg/5ml Inj IVP PRN (20:30)
[2017-11-14] MEDS: Tamsulosin 0.4mg cap ORAL SCH (20:48)
[2017-11-14] MEDS: Atorvastatin 20mg tab ORAL SCH (20:48)
[2017-11-14] MEDS ORDERED: Tamsulosin 0.4mg cap ORAL SCH (21:00)
[2017-11-15] VITALS (7 sets, daily range): BP systolic 107–150; BP diastolic 63–97
[2017-11-15] MEDS: GlipiZIDE 5mg tab ORAL SCH ×2 (05:55→17:22)
[2017-11-15 06:57] LABS: BASOPHILS % (AUTO) 0.8 % (0.0-2.0); EOSINOPHILS % (AUTO) 2.3 % (0.0-3.0); HEMATOCRIT 38.3 % (42.0-52.0); HEMOGLOBIN 11.9 G/DL (14.2-18.0); LYMPHOCYTES % (AUTO) 16.1 % (20.0-45.0); MEAN CORPUSCULAR VOLUME 102 FL (80-99); MONOCYTES % (AUTO) 9.3 % (1.0-10.0); NEUTROPHILS % (AUTO) 71.5 % (45.0-75.0); PLATELET COUNT 117 K/UL (150-450); RED BLOOD COUNT 3.74 M/UL (4.70-6.10); RED CELL DISTRIBUTION WIDTH 16.8 % (11.6-14.8); WHITE BLOOD COUNT 7.2 K/UL (4.8-10.8)
[2017-11-15 07:42] LABS: ALANINE AMINOTRANSFERASE 15 U/L (12-78); ALBUMIN 2.7 G/DL (3.4-5.0); ALBUMIN/GLOBULIN RATIO 0.6 (1.0-2.7); ALKALINE PHOSPHATASE 98 U/L (46-116); ANION GAP 0 mmol/L (5-15); ASPARTATE AMINO TRANSFERASE 25 U/L (15-37); BILIRUBIN,TOTAL 0.8 MG/DL (0.2-1.0); BLOOD UREA NITROGEN 22 mg/dL (7-18); CALCIUM 9.8 MG/DL (8.5-10.1); CHLORIDE 102 MMOL/L (98-107); CREATININE 0.9 MG/DL (0.55-1.30); POTASSIUM 4.1 MMOL/L (3.5-5.1); SODIUM 144 MMOL/L (136-145)
[2017-11-15 07:44] LABS: CARBON DIOXIDE 41 MMOL/L (21-32)
[2017-11-15 07:50] LABS: INR 1.7 (0.9-1.1)
[2017-11-15] MEDS: Docusate 100mg/10ml Liq ORAL SCH ×2 (10:03→18:29)
[2017-11-15] MEDS: Lyrica 50mg cap ORAL SCH (10:05)
[2017-11-15] MEDS: Furosemide 40mg tab ORAL SCH (10:06)
[2017-11-15] MEDS: Multivitamin w/Minerals tab ORAL SCH (10:07)
[2017-11-15] MEDS: Metoprolol Succinate XL 25mg tab ORAL SCH (10:10)
--- NOTE | 2017-11-15 10:44 | Urology Progress Note ---
Assessment/Plan Assessment/Plan 1. Gross hematuria secondary to [place], resolved. 2. Benign prostatic hypertrophy. 3. Urinary retention. 4. Probable neurogenic bladder. 5. Pyuria. 6. Proteinuria. monitor clinically cath secured to pt's leg hand irrigate PRN cont proscar flomax added s/p empiric abx, finished course consider renal imaging, u/s or CT restarted on coumadin Subjective Allergies: Coded Allergies: No Known Allergies (Unverified , 12/21/15) Subjective all noted Objective Last 24 Hour Vital Signs Date Time Temp Pulse Resp B/P (MAP) Pulse Ox O2 Delivery O2 Flow Rate FiO2 11/15/17 10:10 101 110/65 11/15/17 08:19 Bi-pap 11/15/17 08:19 97.3 97 22 150/92 100 97.3 11/15/17 05:30 95 19 99 Facial 45 11/15/17 03:39 96.8 104 20 144/97 98 Bi-pap 96.8 11/15/17 03:39 98 Bi-pap 11/15/17 03:15 105 25 97 Facial 45 11/15/17 01:25 102 21 97 Facial 45 11/15/17 01:00 94 Bi-pap 11/15/17 01:00 96.6 95 19 135/84 94 96.6 11/14/17 22:42 97 32 98 Facial 45 11/14/17 20:00 98.2 80 25 152/90 100 Bi-pap 45 98.2 11/14/17 20:00 89 11/14/17 19:11 Bi-pap 45 11/14/17 19:11 98 Bi-pap 45 11/14/17 19:11 102 19 98 Facial 45 11/14/17 17:32 96 12.0 45 11/14/17 16:00 97.0 96 22 148/95 96 Venturi Mask 45 97.0 11/14/17 16:00 94 11/14/17 14:42 95 12.0 45 11/14/17 13:13 95 12.0 45 11/14/17 12:00 97 11/14/17 12:00 98.4 93 18 123/75 97 Venturi Mask 45 98.4 11/14/17 11:29 96 45 Intake and Output 11/14/17 11/15/17 19:00 07:00 Intake Total 20 ml Output Total 550 ml Balance -530 ml Intake Oral 20 ml Output Urine Total 550 ml # Bowel Movements 2 1 Microbiology Date/Time Source Procedure Growth Status 11/06/17 15:30 Indwelling Cath Urine Culture - Final NO GROWTH AFTER 48 HOURS Complete Current Medications Medications (Trade) Dose Ordered Sig/Abhishek Route PRN Reason Start Time Stop Time Status Last Admin Dose Admin Acetaminophen (Tylenol) 650 mg Q4H PRN ORAL Mild Pain/Temp > 100.5 11/14/17 20:15 12/05/17 16:14 Amlodipine Besylate (Norvasc) 2.5 mg DAILY ORAL 11/15/17 09:00 12/14/17 08:59 Atorvastatin Calcium (Lipitor) 20 mg BEDTIME ORAL 11/14/17 21:00 12/02/17 20:59 11/14/17 20:48 Cyanocobalamin (Vitamin B-12) 2,500 mcg DAILY ORAL 11/15/17 09:00 12/02/17 08:59 Dextrose (Dextrose 50%) STAT PRN IV Hypoglycemia 11/14/17 20:30 12/14/17 20:29 Docusate Sodium (Colace) 100 mg TWICE A DAY ORAL 11/15/17 09:00 12/10/17 08:59 11/15/17 10:03 Finasteride (Proscar) 5 mg QHS ORAL 11/14/17 21:00 12/05/17 19:59 11/14/17 20:48 Furosemide (Lasix) 40 mg DAILY ORAL 11/15/17 09:00 12/13/17 08:59 11/15/17 10:06 Glipizide (Glucotrol) 5 mg BIAC ORAL 11/15/17 06:30 12/02/17 06:29 11/15/17 05:55 Lactulose (Cephulac) 30 gm Q4H PRN ORAL Constipation 11/14/17 20:30 12/13/17 20:29 Magnesium Hydroxide (Mom) 30 ml HSPRN PRN ORAL Constipation 2nd Line Agent 11/15/17 17:45 12/11/17 17:44 Metoprolol Succinate (Toprol XL) 25 mg DAILY ORAL 11/15/17 09:00 12/02/17 08:59 11/15/17 10:10 Metoprolol Tartrate (Lopressor) 2.5 mg Q4H PRN IVP SBP>160 OR HR>120 11/14/17 20:30 12/02/17 00:29 Multivitamins Therapeutic (Therapeutic Multivitamin) 1 ea DAILY ORAL 11/15/17 09:00 12/02/17 08:59 11/15/17 10:07 Potassium Chloride (K-Dur) 10 meq DAILY ORAL 11/15/17 09:00 12/02/17 08:59 11/15/17 10:04 Pregabalin (Lyrica) 50 mg DAILY ORAL 11/15/17 09:00 12/02/17 08:59 11/15/17 10:05 Tamsulosin HCl (Flomax) 0.4 mg BEDTIME ORAL 11/14/17 21:00 12/14/17 20:59 11/14/17 20:48 Warfarin Sodium (Coumadin per pharmacy) 1 ea DAILYPRN PRN MISC Per rx protocol 11/14/17 20:30 12/14/17 20:29 Laboratory Tests 11/15/17 05:35: White Blood Count 7.2, Red Blood Count 3.74L, Hemoglobin 11.9L, Hematocrit 38.3L , Mean Corpuscular Volume 102H, Mean Corpuscular Hemoglobin 31.9H, Mean Corpuscular Hemoglobin Concent 31.2L, Red Cell Distribution Width 16.8H, Platelet Count 117L, Mean Platelet Volume 10.0, Neutrophils (%) (Auto) 71.5, Lymphocytes (%) (Auto) 16.1L, Monocytes (%) (Auto) 9.3, Eosinophils (%) (Auto) 2.3, Basophils (%) (Auto) 0.8, Prothrombin Time 18.4H, Prothromb Time International Ratio 1.7H, Sodium Level 144, Potassium Level 4.1, Chloride Level 102, Carbon Dioxide Level 41*H, Anion Gap 0L, Blood Urea Nitrogen 22H, Creatinine 0.9, Estimat Glomerular Filtration Rate , Glucose Level 84, Calcium Level 9.8, Total Bilirubin 0.8, Aspartate Amino Transf (AST/SGOT) 25, Alanine Aminotransferase (ALT/SGPT) 15, Alkaline Phosphatase 98, Total Protein 7.4, Albumin 2.7L, Globulin 4.7, Albumin/Globulin Ratio 0.6L Height (Feet): 5 Height (Inches): 9.00 Weight (Pounds): 275 Objective exam stable, urine clearing PATRICE GARCIA Nov 15, 2017 10:44
[2017-11-15] MEDS: Vitamin B-12 500mcg tab ORAL SCH (11:08)
--- NOTE | 2017-11-15 13:59 | GI Progress Note ---
Assessment/Plan Problems: (1) Constipated ICD Codes: K59.00 - Constipation, unspecified SNOMED: 51830856 (2) Anemia ICD Codes: D64.9 - Anemia, unspecified SNOMED: 073843133 (3) Anasarca ICD Codes: R60.1 - Generalized edema SNOMED: 703472840, 302665708 (4) CHF (congestive heart failure) ICD Codes: I50.9 - Heart failure, unspecified SNOMED: 90285483, 779802636 Status: stable, progressing Status Narrative Discussed with Dr. Cyr. Assessment/Plan macrocytic hyperchromic anemia >> fu B12/folate levels constipation, KUB reviewed no acute process had multiple BM's yesterday cont lactulose + colace prn mineral oil enema/PO cardiac diet, tolerating fu labs The patient was seen and examined at bedside and all new and available data was reviewed in the patients chart. I agree with the above findings, impression and plan. (Patient seen earlier today. Signature stamp does not reflect patient encounter time.). - Janiya Cyr MD Subjective Subjective limited Objective Last 24 Hour Vital Signs Date Time Temp Pulse Resp B/P (MAP) Pulse Ox O2 Delivery O2 Flow Rate FiO2 11/15/17 11:35 Venturi Mask 11/15/17 11:35 97.3 100 20 107/63 97 97.3 11/15/17 10:10 101 110/65 11/15/17 10:10 101 110/65 11/15/17 08:19 Bi-pap 11/15/17 08:19 97.3 97 22 150/92 100 97.3 11/15/17 05:30 95 19 99 Facial 45 11/15/17 03:39 96.8 104 20 144/97 98 Bi-pap 96.8 11/15/17 03:39 98 Bi-pap 11/15/17 03:15 105 25 97 Facial 45 11/15/17 01:25 102 21 97 Facial 45 11/15/17 01:00 94 Bi-pap 11/15/17 01:00 96.6 95 19 135/84 94 96.6 11/14/17 22:42 97 32 98 Facial 45 11/14/17 20:00 98.2 80 25 152/90 100 Bi-pap 45 98.2 11/14/17 20:00 89 3//18 19:11 Bi-pap 45 11/14/17 19:11 98 Bi-pap 45 11/14/17 19:11 102 19 98 Facial 45 11/14/17 17:32 96 12.0 45 11/14/17 16:00 97.0 96 22 148/95 96 Venturi Mask 45 97.0 11/14/17 16:00 94 11/14/17 14:42 95 12.0 45 Intake and Output 11/14/17 11/15/17 19:00 07:00 Intake Total 20 ml Output Total 550 ml Balance -530 ml Intake Oral 20 ml Output Urine Total 550 ml # Bowel Movements 2 1 Laboratory Tests Test 11/15/17 05:35 White Blood Count 7.2 K/UL (4.8-10.8) Red Blood Count 3.74 M/UL (4.70-6.10) L Hemoglobin 11.9 G/DL (14.2-18.0) L Hematocrit 38.3 % (42.0-52.0) L Mean Corpuscular Volume 102 FL (80-99) H Mean Corpuscular Hemoglobin 31.9 PG (27.0-31.0) H Mean Corpuscular Hemoglobin Concent 31.2 G/DL (32.0-36.0) L Red Cell Distribution Width 16.8 % (11.6-14.8) H Platelet Count 117 K/UL (150-450) L Mean Platelet Volume 10.0 FL (6.5-10.1) Neutrophils (%) (Auto) 71.5 % (45.0-75.0) Lymphocytes (%) (Auto) 16.1 % (20.0-45.0) L Monocytes (%) (Auto) 9.3 % (1.0-10.0) Eosinophils (%) (Auto) 2.3 % (0.0-3.0) Basophils (%) (Auto) 0.8 % (0.0-2.0) Prothrombin Time 18.4 SEC (9.30-11.50) H Prothromb Time International Ratio 1.7 (0.9-1.1) H Sodium Level 144 MMOL/L (136-145) Potassium Level 4.1 MMOL/L (3.5-5.1) Chloride Level 102 MMOL/L (98-107) Carbon Dioxide Level 41 MMOL/L (21-32) *H Anion Gap 0 mmol/L (5-15) L Blood Urea Nitrogen 22 mg/dL (7-18) H Creatinine 0.9 MG/DL (0.55-1.30) Estimat Glomerular Filtration Rate mL/min (>60) Glucose Level 84 MG/DL (74-106) Calcium Level 9.8 MG/DL (8.5-10.1) Total Bilirubin 0.8 MG/DL (0.2-1.0) Aspartate Amino Transf (AST/SGOT) 25 U/L (15-37) Alanine Aminotransferase (ALT/SGPT) 15 U/L (12-78) Alkaline Phosphatase 98 U/L (46-116) Total Protein 7.4 G/DL (6.4-8.2) Albumin 2.7 G/DL (3.4-5.0) L Globulin 4.7 g/dL Albumin/Globulin Ratio 0.6 (1.0-2.7) L Height (Feet): 5 Height (Inches): 9.00 Weight (Pounds): 275 General Appearance: WD/WN, no apparent distress, alert Cardiovascular: normal rate Respiratory/Chest: normal breath sounds, no respiratory distress Abdominal Exam: normal bowel sounds, non tender, soft Extremities: normal range of motion, non-tender Fe Rosado N.James Nov 15, 2017 13:59 EASTON CYR Nov 18, 2017 10:11
--- NOTE | 2017-11-15 15:18 | Pulmonology Progress Note ---
Assessment/Plan Assessment/Plan IMPRESSION: 1. Status post fall. 2. Cough with phlegm production. 3. Congestive heart failure. 4. Troponin leak. 5. Cognitive impairment. 6. Pulm fibrosis 7. constipation DISCUSSION: Continue home medications. Has LVEF 55-60% on ECHO. Back on coumadin; INR 1.7 Seen by urology; Notes appreciated CT with GG infiltrates and pulm HTN suggests long-standing process nasal O2 PT eval Continue diuresus BiPAP q pm seen by GI for constipation Discussed with family SNF when bed available he can be transitioned to nasal oxygen by day and BiPAP every night Chris Guerrero M.D. Subjective Interval Events: was on BiPAP overnight. [place] Ventimask however orders placed for nasal O2 Constitutional: Reports: no symptoms HEENT: Repors: no symptoms Respiratory: Reports: no symptoms Cardiovascular: Reports: no symptoms Gastrointestinal/Abdominal: Reports: no symptoms Genitourinary: Reports: no symptoms Neurologic: Reports: no symptoms Allergies: Coded Allergies: No Known Allergies (Unverified , 12/21/15) Objective Last 24 Hour Vital Signs Date Time Temp Pulse Resp B/P (MAP) Pulse Ox O2 Delivery O2 Flow Rate FiO2 11/15/17 11:35 Venturi Mask 11/15/17 11:35 97.3 100 20 107/63 97 97.3 11/15/17 10:10 101 110/65 11/15/17 10:10 101 110/65 11/15/17 08:29 Nasal Cannula 8.0 40 11/15/17 08:23 98 Nasal Cannula 8.0 40 11/15/17 08:19 Bi-pap 11/15/17 08:19 97.3 97 22 150/92 100 97.3 11/15/17 07:29 122 23 98 Facial 45 11/15/17 05:30 95 19 99 Facial 45 11/15/17 03:39 96.8 104 20 144/97 98 Bi-pap 96.8 11/15/17 03:39 98 Bi-pap 11/15/17 03:15 105 25 97 Facial 45 11/15/17 01:25 102 21 97 Facial 45 11/15/17 01:00 94 Bi-pap 11/15/17 01:00 96.6 95 19 135/84 94 96.6 11/14/17 22:42 97 32 98 Facial 45 11/14/17 20:00 98.2 80 25 152/90 100 Bi-pap 45 98.2 11/14/17 20:00 89 11/14/17 19:11 Bi-pap 45 11/14/17 19:11 98 Bi-pap 45 11/14/17 19:11 102 19 98 Facial 45 11/14/17 17:32 96 12.0 45 11/14/17 16:00 97.0 96 22 148/95 96 Venturi Mask 45 97.0 11/14/17 16:00 94 Intake and Output 11/14/17 11/15/17 19:00 07:00 Intake Total 20 ml Output Total 550 ml Balance -530 ml Intake Oral 20 ml Output Urine Total 550 ml # Bowel Movements 2 1 General Appearance: no acute distress HEENT: normocephalic Respiratory/Chest: chest wall non-tender, lungs clear Cardiovascular: normal peripheral pulses, normal rate Abdomen: normal bowel sounds Laboratory Tests 11/15/17 05:35: White Blood Count 7.2, Red Blood Count 3.74L, Hemoglobin 11.9L, Hematocrit 38.3L , Mean Corpuscular Volume 102H, Mean Corpuscular Hemoglobin 31.9H, Mean Corpuscular Hemoglobin Concent 31.2L, Red Cell Distribution Width 16.8H, Platelet Count 117L, Mean Platelet Volume 10.0, Neutrophils (%) (Auto) 71.5, Lymphocytes (%) (Auto) 16.1L, Monocytes (%) (Auto) 9.3, Eosinophils (%) (Auto) 2.3, Basophils (%) (Auto) 0.8, Prothrombin Time 18.4H, Prothromb Time International Ratio 1.7H, Sodium Level 144, Potassium Level 4.1, Chloride Level 102, Carbon Dioxide Level 41*H, Anion Gap 0L, Blood Urea Nitrogen 22H, Creatinine 0.9, Estimat Glomerular Filtration Rate , Glucose Level 84, Calcium Level 9.8, Total Bilirubin 0.8, Aspartate Amino Transf (AST/SGOT) 25, Alanine Aminotransferase (ALT/SGPT) 15, Alkaline Phosphatase 98, Total Protein 7.4, Albumin 2.7L, Globulin 4.7, Albumin/Globulin Ratio 0.6L Current Medications Medications (Trade) Dose Ordered Sig/Abhishek Route PRN Reason Start Time Stop Time Status Last Admin Dose Admin Acetaminophen (Tylenol) 650 mg Q4H PRN ORAL Mild Pain/Temp > 100.5 11/14/17 20:15 12/05/17 16:14 Amlodipine Besylate (Norvasc) 2.5 mg DAILY ORAL 11/15/17 09:00 12/14/17 08:59 Atorvastatin Calcium (Lipitor) 20 mg BEDTIME ORAL 11/14/17 21:00 12/02/17 20:59 11/14/17 20:48 Cyanocobalamin (Vitamin B-12) 2,500 mcg DAILY ORAL 11/15/17 09:00 12/02/17 08:59 11/15/17 11:08 Dextrose (Dextrose 50%) STAT PRN IV Hypoglycemia 11/14/17 20:30 12/14/17 20:29 Docusate Sodium (Colace) 100 mg TWICE A DAY ORAL 11/15/17 09:00 12/10/17 08:59 11/15/17 10:03 Finasteride (Proscar) 5 mg QHS ORAL 11/14/17 21:00 12/05/17 19:59 11/14/17 20:48 Furosemide (Lasix) 40 mg DAILY ORAL 11/15/17 09:00 12/13/17 08:59 11/15/17 10:06 Glipizide (Glucotrol) 5 mg BIAC ORAL 11/15/17 06:30 12/02/17 06:29 11/15/17 05:55 Lactulose (Cephulac) 30 gm Q4H PRN ORAL Constipation 11/14/17 20:30 12/13/17 20:29 Magnesium Hydroxide (Mom) 30 ml HSPRN PRN ORAL Constipation 2nd Line Agent 11/15/17 17:45 12/11/17 17:44 Metoprolol Succinate (Toprol XL) 25 mg DAILY ORAL 11/15/17 09:00 12/02/17 08:59 11/15/17 10:10 Multivitamins Therapeutic (Therapeutic Multivitamin) 1 ea DAILY ORAL 11/15/17 09:00 12/02/17 08:59 11/15/17 10:07 Potassium Chloride (K-Dur) 10 meq DAILY ORAL 11/15/17 09:00 12/02/17 08:59 11/15/17 10:04 Pregabalin (Lyrica) 50 mg DAILY ORAL 11/15/17 09:00 12/02/17 08:59 11/15/17 10:05 Tamsulosin HCl (Flomax) 0.4 mg BEDTIME ORAL 11/14/17 21:00 12/14/17 20:59 11/14/17 20:48 Warfarin Sodium (Coumadin per pharmacy) 1 ea DAILYPRN PRN MISC Per rx protocol 11/14/17 20:30 12/14/17 20:29 Warfarin Sodium (Coumadin) 7.5 mg COUMADIN ONCE ORAL 11/15/17 17:00 11/15/17 17:01 Chris Guerrero MD Nov 15, 2017 15:18
[2017-11-15] MEDS ORDERED: Warfarin Sodium 7.5mg ORAL ONE (17:00)
[2017-11-15] MEDS ORDERED: Milk of Magnesia 30ml Ud ORAL PRN (17:45)
[2017-11-15] MEDS: Tamsulosin 0.4mg cap ORAL SCH (21:47)
[2017-11-15] MEDS: Atorvastatin 20mg tab ORAL SCH (21:47)
[2017-11-16] VITALS (7 sets, daily range): BP systolic 119–132; BP diastolic 52–85
[2017-11-16] MEDS: GlipiZIDE 5mg tab ORAL SCH ×2 (06:03→17:20)
[2017-11-16 07:26] LABS: EOSINOPHILS % (AUTO) 5.4 % (0.0-3.0); HEMATOCRIT 36.4 % (42.0-52.0); HEMOGLOBIN 11.4 G/DL (14.2-18.0); LYMPHOCYTES % (AUTO) 22.2 % (20.0-45.0); MEAN CORPUSCULAR VOLUME 103 FL (80-99); MONOCYTES % (AUTO) 9.4 % (1.0-10.0); NEUTROPHILS % (AUTO) 61.9 % (45.0-75.0); PLATELET COUNT 118 K/UL (150-450); RED BLOOD COUNT 3.52 M/UL (4.70-6.10); RED CELL DISTRIBUTION WIDTH 16.6 % (11.6-14.8); WHITE BLOOD COUNT 7.6 K/UL (4.8-10.8)
[2017-11-16 07:45] LABS: ALANINE AMINOTRANSFERASE 15 U/L (12-78); ALBUMIN 2.7 G/DL (3.4-5.0); ALBUMIN/GLOBULIN RATIO 0.6 (1.0-2.7); ALKALINE PHOSPHATASE 94 U/L (46-116); ANION GAP 0 mmol/L (5-15); ASPARTATE AMINO TRANSFERASE 24 U/L (15-37); BILIRUBIN,TOTAL 0.7 MG/DL (0.2-1.0); BLOOD UREA NITROGEN 20 mg/dL (7-18); CALCIUM 9.5 MG/DL (8.5-10.1); CHLORIDE 101 MMOL/L (98-107); CREATININE 0.9 MG/DL (0.55-1.30); PHOSPHORUS 3.9 MG/DL (2.5-4.9); POTASSIUM 4.1 MMOL/L (3.5-5.1); SODIUM 143 MMOL/L (136-145)
[2017-11-16 07:52] LABS: CARBON DIOXIDE 42 MMOL/L (21-32)
[2017-11-16 08:00] LABS: INR 2.2 (0.9-1.1)
[2017-11-16] MEDS: Docusate 100mg/10ml Liq ORAL SCH ×2 (09:00→17:20)
[2017-11-16] MEDS: Multivitamin w/Minerals tab ORAL SCH (09:44)
[2017-11-16] MEDS: Furosemide 40mg tab ORAL SCH (09:45)
[2017-11-16] MEDS: Lyrica 50mg cap ORAL SCH (09:45)
[2017-11-16] MEDS: Metoprolol Succinate XL 25mg tab ORAL SCH (09:45)
--- NOTE | 2017-11-16 09:49 | General Progress Note ---
Assessment/Plan Problem List: (1) Constipated ICD Codes: K59.00 - Constipation, unspecified SNOMED: 85731249 (2) Anemia ICD Codes: D64.9 - Anemia, unspecified SNOMED: 421749093 (3) CHF (congestive heart failure) ICD Codes: I50.9 - Heart failure, unspecified SNOMED: 08629842, 045881566 (4) Anasarca ICD Codes: R60.1 - Generalized edema SNOMED: 230986337, 992570335 Assessment/Plan add folic acid daily fu H&H fu stool ob GI procedures on hold for now Subjective ROS Limited/Unobtainable: No Allergies: Coded Allergies: No Known Allergies (Unverified , 12/21/15) Objective Last 24 Hour Vital Signs Date Time Temp Pulse Resp B/P (MAP) Pulse Ox O2 Delivery O2 Flow Rate FiO2 11/16/17 09:45 101 122/65 11/16/17 09:45 101 122/65 11/16/17 08:37 98.2 101 19 122/65 93 98.2 11/16/17 04:00 94 Bi-pap 11/16/17 04:00 97.3 99 20 119/73 94 97.3 11/16/17 00:00 94 Bi-pap 11/16/17 00:00 97.0 84 18 128/85 94 97.0 11/15/17 20:34 97 Venturi Mask 8.0 45 11/15/17 20:34 Venturi Mask 8.0 45 11/15/17 20:00 96.8 106 20 119/79 97 96.8 11/15/17 20:00 97 Bi-pap 11/15/17 16:05 Venturi Mask 11/15/17 16:05 98.0 99 20 130/66 99 98.0 11/15/17 11:35 Venturi Mask 11/15/17 11:35 97.3 100 20 107/63 97 97.3 11/15/17 10:10 101 110/65 11/15/17 10:10 101 110/65 Intake and Output 11/15/17 11/16/17 19:00 07:00 Intake Total 600 ml Output Total 700 ml 800 ml Balance -100 ml -800 ml Intake Oral 600 ml Output Urine Total 700 ml 800 ml # Voids 2 # Bowel Movements 3 1 Laboratory Tests 11/16/17 05:50: White Blood Count 7.6, Red Blood Count 3.52L, Hemoglobin 11.4L, Hematocrit 36.4L , Mean Corpuscular Volume 103H, Mean Corpuscular Hemoglobin 32.5H, Mean Corpuscular Hemoglobin Concent 31.4L, Red Cell Distribution Width 16.6H, Platelet Count 118L, Mean Platelet Volume 9.7, Neutrophils (%) (Auto) 61.9, Lymphocytes (%) (Auto) 22.2, Monocytes (%) (Auto) 9.4, Eosinophils (%) (Auto) 5.4H, Basophils (%) (Auto) 1.0, Prothrombin Time 23.2H, Prothromb Time International Ratio 2.2H, Sodium Level 143, Potassium Level 4.1, Chloride Level 101, Carbon Dioxide Level 42*H, Anion Gap 0L, Blood Urea Nitrogen 20H, Creatinine 0.9, Estimat Glomerular Filtration Rate , Glucose Level 82, Calcium Level 9.5, Phosphorus Level 3.9, Magnesium Level 2.5H, Total Bilirubin 0.7, Aspartate Amino Transf (AST/SGOT) 24, Alanine Aminotransferase (ALT/SGPT) 15, Alkaline Phosphatase 94, Total Protein 7.3, Albumin 2.7L, Globulin 4.6, Albumin/ Globulin Ratio 0.6L, Vitamin B12 Level 1525H, Folate 7.3L Height (Feet): 5 Height (Inches): 9.00 Weight (Pounds): 274 General Appearance: no apparent distress EENT: normal ENT inspection Neck: supple Cardiovascular: normal rate Respiratory/Chest: decreased breath sounds Abdomen: normal bowel sounds, non tender, soft Extremities: non-tender EASTON ROSA Nov 16, 2017 09:49
--- NOTE | 2017-11-16 10:27 | Urology Progress Note ---
Assessment/Plan Assessment/Plan 1. Gross hematuria secondary to [place], resolved. 2. Benign prostatic hypertrophy. 3. Urinary retention. 4. Probable neurogenic bladder. 5. Pyuria. 6. Proteinuria. keep chamberlain for now monitor clinically cath secured to pt's leg hand irrigate PRN cont proscar flomax added s/p empiric abx, finished course consider renal imaging, u/s or CT restarted on coumadin voiding trial later d/w Dr. Guerrero Subjective Allergies: Coded Allergies: No Known Allergies (Unverified , 12/21/15) Subjective all noted, comfortable, plan to dc to SNF Objective Last 24 Hour Vital Signs Date Time Temp Pulse Resp B/P (MAP) Pulse Ox O2 Delivery O2 Flow Rate FiO2 11/16/17 09:45 101 122/65 11/16/17 09:45 101 122/65 11/16/17 08:37 98.2 101 19 122/65 93 98.2 11/16/17 08:32 95 Venturi Mask 10.0 45 11/16/17 08:32 Venturi Mask 10.0 45 11/16/17 04:00 94 Bi-pap 11/16/17 04:00 97.3 99 20 119/73 94 97.3 11/16/17 00:00 94 Bi-pap 11/16/17 00:00 97.0 84 18 128/85 94 97.0 11/15/17 20:34 97 Venturi Mask 8.0 45 11/15/17 20:34 Venturi Mask 8.0 45 11/15/17 20:00 96.8 106 20 119/79 97 96.8 11/15/17 20:00 97 Bi-pap 11/15/17 16:05 Venturi Mask 11/15/17 16:05 98.0 99 20 130/66 99 98.0 11/15/17 11:35 Venturi Mask 11/15/17 11:35 97.3 100 20 107/63 97 97.3 Intake and Output 11/15/17 11/16/17 19:00 07:00 Intake Total 600 ml Output Total 700 ml 800 ml Balance -100 ml -800 ml Intake Oral 600 ml Output Urine Total 700 ml 800 ml # Voids 2 # Bowel Movements 3 1 Microbiology Date/Time Source Procedure Growth Status 11/06/17 15:30 Indwelling Cath Urine Culture - Final NO GROWTH AFTER 48 HOURS Complete Current Medications Medications (Trade) Dose Ordered Sig/Abhishek Route PRN Reason Start Time Stop Time Status Last Admin Dose Admin Acetaminophen (Tylenol) 650 mg Q4H PRN ORAL Mild Pain/Temp > 100.5 11/14/17 20:15 12/05/17 16:14 Amlodipine Besylate (Norvasc) 2.5 mg DAILY ORAL 11/15/17 09:00 12/14/17 08:59 11/16/17 09:45 Atorvastatin Calcium (Lipitor) 20 mg BEDTIME ORAL 11/14/17 21:00 12/02/17 20:59 11/15/17 21:47 Cyanocobalamin (Vitamin B-12) 2,500 mcg DAILY ORAL 11/15/17 09:00 12/02/17 08:59 11/15/17 11:08 Dextrose (Dextrose 50%) STAT PRN IV Hypoglycemia 11/14/17 20:30 12/14/17 20:29 Docusate Sodium (Colace) 100 mg TWICE A DAY ORAL 11/15/17 09:00 12/10/17 08:59 11/15/17 18:29 Finasteride (Proscar) 5 mg QHS ORAL 11/14/17 21:00 12/05/17 19:59 11/15/17 21:47 Folic Acid (Folate) 1 mg DAILY ORAL 11/17/17 09:00 12/17/17 08:59 Furosemide (Lasix) 40 mg DAILY ORAL 11/15/17 09:00 12/13/17 08:59 11/16/17 09:45 Glipizide (Glucotrol) 5 mg BIAC ORAL 11/15/17 06:30 12/02/17 06:29 11/16/17 06:03 Lactulose (Cephulac) 30 gm Q4H PRN ORAL Constipation 11/14/17 20:30 12/13/17 20:29 Magnesium Hydroxide (Mom) 30 ml HSPRN PRN ORAL Constipation 2nd Line Agent 11/15/17 17:45 12/11/17 17:44 Metoprolol Succinate (Toprol XL) 25 mg DAILY ORAL 11/15/17 09:00 12/02/17 08:59 11/16/17 09:45 Multivitamins Therapeutic (Therapeutic Multivitamin) 1 ea DAILY ORAL 11/15/17 09:00 12/02/17 08:59 11/16/17 09:44 Potassium Chloride (K-Dur) 10 meq DAILY ORAL 11/15/17 09:00 12/02/17 08:59 11/16/17 09:44 Pregabalin (Lyrica) 50 mg DAILY ORAL 11/15/17 09:00 12/02/17 08:59 11/16/17 09:45 Tamsulosin HCl (Flomax) 0.4 mg BEDTIME ORAL 11/14/17 21:00 12/14/17 20:59 11/15/17 21:47 Warfarin Sodium (Coumadin per pharmacy) 1 ea DAILYPRN PRN MISC Per rx protocol 11/14/17 20:30 12/14/17 20:29 Warfarin Sodium (Coumadin) 6 mg COUMADIN ONCE ORAL 11/16/17 17:00 11/16/17 17:01 Laboratory Tests 11/16/17 05:50: White Blood Count 7.6, Red Blood Count 3.52L, Hemoglobin 11.4L, Hematocrit 36.4L , Mean Corpuscular Volume 103H, Mean Corpuscular Hemoglobin 32.5H, Mean Corpuscular Hemoglobin Concent 31.4L, Red Cell Distribution Width 16.6H, Platelet Count 118L, Mean Platelet Volume 9.7, Neutrophils (%) (Auto) 61.9, Lymphocytes (%) (Auto) 22.2, Monocytes (%) (Auto) 9.4, Eosinophils (%) (Auto) 5.4H, Basophils (%) (Auto) 1.0, Prothrombin Time 23.2H, Prothromb Time International Ratio 2.2H, Sodium Level 143, Potassium Level 4.1, Chloride Level 101, Carbon Dioxide Level 42*H, Anion Gap 0L, Blood Urea Nitrogen 20H, Creatinine 0.9, Estimat Glomerular Filtration Rate , Glucose Level 82, Calcium Level 9.5, Phosphorus Level 3.9, Magnesium Level 2.5H, Total Bilirubin 0.7, Aspartate Amino Transf (AST/SGOT) 24, Alanine Aminotransferase (ALT/SGPT) 15, Alkaline Phosphatase 94, Total Protein 7.3, Albumin 2.7L, Globulin 4.6, Albumin/ Globulin Ratio 0.6L, Vitamin B12 Level 1525H, Folate 7.3L Height (Feet): 5 Height (Inches): 9.00 Weight (Pounds): 274 Objective exam stable, urine clearing PATRICE GARCIA Nov 16, 2017 10:26
--- NOTE | 2017-11-16 12:14 | Pulmonology Progress Note ---
Assessment/Plan Assessment/Plan IMPRESSION: 1. Status post fall. 2. Cough with phlegm production. 3. Congestive heart failure. 4. Troponin leak. 5. Cognitive impairment. 6. Pulm fibrosis 7. constipation DISCUSSION: Continue home medications. Has LVEF 55-60% on ECHO. Back on coumadin; INR 1.7 Seen by urology; Notes appreciated CT with GG infiltrates and pulm HTN suggests long-standing process nasal O2 PT eval Continue diuresus BiPAP q pm seen by GI for constipation Discussed with family SNF when bed available he can be transitioned to nasal oxygen by day and BiPAP every night Chris Guerrero M.D. Subjective Interval Events: none Constitutional: Reports: no symptoms HEENT: Repors: no symptoms Respiratory: Reports: no symptoms Gastrointestinal/Abdominal: Reports: no symptoms Allergies: Coded Allergies: No Known Allergies (Unverified , 12/21/15) Objective Last 24 Hour Vital Signs Date Time Temp Pulse Resp B/P (MAP) Pulse Ox O2 Delivery O2 Flow Rate FiO2 11/16/17 11:40 98.3 100 19 123/68 97 98.3 11/16/17 09:45 101 122/65 11/16/17 09:45 101 122/65 11/16/17 08:37 98.2 101 19 122/65 93 98.2 11/16/17 08:32 95 Venturi Mask 10.0 45 11/16/17 08:32 Venturi Mask 10.0 45 11/16/17 04:00 94 Bi-pap 11/16/17 04:00 97.3 99 20 119/73 94 97.3 11/16/17 00:00 94 Bi-pap 11/16/17 00:00 97.0 84 18 128/85 94 97.0 11/15/17 20:34 97 Venturi Mask 8.0 45 11/15/17 20:34 Venturi Mask 8.0 45 11/15/17 20:00 96.8 106 20 119/79 97 96.8 11/15/17 20:00 97 Bi-pap 11/15/17 16:05 Venturi Mask 11/15/17 16:05 98.0 99 20 130/66 99 98.0 Intake and Output 11/15/17 11/16/17 19:00 07:00 Intake Total 600 ml Output Total 700 ml 800 ml Balance -100 ml -800 ml Intake Oral 600 ml Output Urine Total 700 ml 800 ml # Voids 2 # Bowel Movements 3 1 HEENT: normocephalic Respiratory/Chest: chest wall non-tender, crackles/rales Cardiovascular: normal peripheral pulses, normal rate Abdomen: normal bowel sounds Laboratory Tests 11/16/17 05:50: White Blood Count 7.6, Red Blood Count 3.52L, Hemoglobin 11.4L, Hematocrit 36.4L , Mean Corpuscular Volume 103H, Mean Corpuscular Hemoglobin 32.5H, Mean Corpuscular Hemoglobin Concent 31.4L, Red Cell Distribution Width 16.6H, Platelet Count 118L, Mean Platelet Volume 9.7, Neutrophils (%) (Auto) 61.9, Lymphocytes (%) (Auto) 22.2, Monocytes (%) (Auto) 9.4, Eosinophils (%) (Auto) 5.4H, Basophils (%) (Auto) 1.0, Prothrombin Time 23.2H, Prothromb Time International Ratio 2.2H, Sodium Level 143, Potassium Level 4.1, Chloride Level 101, Carbon Dioxide Level 42*H, Anion Gap 0L, Blood Urea Nitrogen 20H, Creatinine 0.9, Estimat Glomerular Filtration Rate , Glucose Level 82, Calcium Level 9.5, Phosphorus Level 3.9, Magnesium Level 2.5H, Total Bilirubin 0.7, Aspartate Amino Transf (AST/SGOT) 24, Alanine Aminotransferase (ALT/SGPT) 15, Alkaline Phosphatase 94, Total Protein 7.3, Albumin 2.7L, Globulin 4.6, Albumin/ Globulin Ratio 0.6L, Vitamin B12 Level 1525H, Folate 7.3L Current Medications Medications (Trade) Dose Ordered Sig/Abhishek Route PRN Reason Start Time Stop Time Status Last Admin Dose Admin Acetaminophen (Tylenol) 650 mg Q4H PRN ORAL Mild Pain/Temp > 100.5 11/14/17 20:15 12/05/17 16:14 Amlodipine Besylate (Norvasc) 2.5 mg DAILY ORAL 11/15/17 09:00 12/14/17 08:59 11/16/17 09:45 Atorvastatin Calcium (Lipitor) 20 mg BEDTIME ORAL 11/14/17 21:00 12/02/17 20:59 11/15/17 21:47 Cyanocobalamin (Vitamin B-12) 2,500 mcg DAILY ORAL 11/15/17 09:00 12/02/17 08:59 11/15/17 11:08 Dextrose (Dextrose 50%) STAT PRN IV Hypoglycemia 11/14/17 20:30 12/14/17 20:29 Docusate Sodium (Colace) 100 mg TWICE A DAY ORAL 11/15/17 09:00 12/10/17 08:59 11/15/17 18:29 Finasteride (Proscar) 5 mg QHS ORAL 11/14/17 21:00 12/05/17 19:59 11/15/17 21:47 Folic Acid (Folate) 1 mg DAILY ORAL 11/17/17 09:00 12/17/17 08:59 Furosemide (Lasix) 40 mg DAILY ORAL 11/15/17 09:00 12/13/17 08:59 11/16/17 09:45 Glipizide (Glucotrol) 5 mg BIAC ORAL 11/15/17 06:30 12/02/17 06:29 11/16/17 06:03 Lactulose (Cephulac) 30 gm Q4H PRN ORAL Constipation 11/14/17 20:30 12/13/17 20:29 Magnesium Hydroxide (Mom) 30 ml HSPRN PRN ORAL Constipation 2nd Line Agent 11/15/17 17:45 12/11/17 17:44 Metoprolol Succinate (Toprol XL) 25 mg DAILY ORAL 11/15/17 09:00 12/02/17 08:59 11/16/17 09:45 Multivitamins Therapeutic (Therapeutic Multivitamin) 1 ea DAILY ORAL 11/15/17 09:00 12/02/17 08:59 11/16/17 09:44 Potassium Chloride (K-Dur) 10 meq DAILY ORAL 11/15/17 09:00 12/02/17 08:59 11/16/17 09:44 Pregabalin (Lyrica) 50 mg DAILY ORAL 11/15/17 09:00 12/02/17 08:59 11/16/17 09:45 Tamsulosin HCl (Flomax) 0.4 mg BEDTIME ORAL 11/14/17 21:00 12/14/17 20:59 11/15/17 21:47 Warfarin Sodium (Coumadin per pharmacy) 1 ea DAILYPRN PRN MISC Per rx protocol 11/14/17 20:30 12/14/17 20:29 Warfarin Sodium (Coumadin) 6 mg COUMADIN ONCE ORAL 11/16/17 17:00 11/16/17 17:01 Chris Guerrero MD Nov 16, 2017 12:13
[2017-11-16] MEDS: Vitamin B-12 500mcg tab ORAL SCH (13:37)
[2017-11-16] MEDS ORDERED: Warfarin Sodium 3mg ORAL ONE (17:00)
[2017-11-16] MEDS: Atorvastatin 20mg tab ORAL SCH (20:24)
[2017-11-16] MEDS: Tamsulosin 0.4mg cap ORAL SCH (20:24)
[2017-11-17] VITALS: BP 129/81
[2017-11-17 04:00] VITALS: BP 121/73
[2017-11-17] MEDS ORDERED: Tubing IV Secondary IV ONE (04:24)
[2017-11-17] MEDS ORDERED: NS 275ml ONE (04:24)
--- NOTE | 2017-11-20 13:41 | Discharge Summary ---
Discharge Summary Hospital Course Date of Admission Nov 01, 2017 at 11:00 Date of Discharge Nov 17, 2017 at 04:25 Admitting Diagnosis CHF EXACERBATION HPI Armani Starks is a 87 year old male who was admitted on Nov 01, 2017 at 11:00 for Congestive Heart Failure Exacerbation Hospital Course [facility] summary #[id number] Discharge Medications New Medications: Finasteride (Finasteride) 5 Mg Tablet 5 MG ORAL QHS for 30 Days, TAB Furosemide* (Lasix*) 20 Mg Tablet 20 MG ORAL DAILY for 30 Days, TAB Continued Medications: Cyanocobalamin (Vitamin B-12) (Vitamin B12) 2,500 Mcg Tablet 100 MG PO, TAB Furosemide* (Lasix*) 20 Mg Tablet 20 MG ORAL DAILY, TAB Glimepiride* (Amaryl*) 4 Mg Tablet 4 MG ORAL BEFORE BREAKFAST, TAB Glipizide* (Glipizide*) 5 Mg Tablet 5 MG ORAL BIDAC, TAB Ipratropium/Albuterol Sulfate (DuoNeb 0.5-3(2.5)mg/3ml) 3 Ml Ampul.neb 3 ML HHN Q4HR for Shortness of Breath, EA Linagliptin (Tradjenta) 5 Mg Tablet 5 MG PO, TAB Metoprolol Succinate* (Toprol Xl*) 25 Mg Tab.er.24h 25 MG ORAL DAILY, TAB Multivitamin with Minerals (Multivitamins with Minerals) 1 Each Tablet 1 TAB ORAL DAILY, TAB Omeprazole (Prilosec) 20 Mg Capsule.dr 20 MG ORAL DAILY, CAP Potassium Chloride (Potassium Chloride) 8 Meq Tablet.er 8 MEQ PO, TAB Pregabalin (Lyrica) 50 Mg Cap 50 MG ORAL DAILY, CAP Rosuvastatin Calcium (Crestor) 10 Mg Tab 10 MG ORAL DAILY, TAB Warfarin Sod* (Coumadin*) 4 Mg Tablet 4 MG ORAL DAILY, TAB Discontinued Medications: Warfarin Sod* (Coumadin*) 5 Mg Tablet 5 MG ORAL DAILY, TAB Discharge Condition Upon Discharge: stable Discharge Disposition Patient was discharged to SNF/Subacute Facility(03) Discharge Diagnoses: Discharge Instructions Discharge Instructions Special Instructions I have been assigned to complete a D/C Summary on this account. I was not involved in the patient management Jo Youssef NP (Vanchtein) Nov 20, 2017 13:41
--- NOTE | 2017-11-21 04:45 | Discharge Summary 2 SIG ---
DATE OF ADMISSION: 11/01/2017 DATE OF DISCHARGE: 11/17/2017 REASON FOR ADMISSION: 87-year-old male with past medical history significant for CHF, atrial fibrillation (on Coumadin), bedbound, diabetes, dementia, was brought by paramedics with increased difficulty breathing and recent fall. The patient was at home, apparently receiving hospice care. Family member stated that they were no longer able to take care of the patient. The patient noted to have marked shortness of breath. The patient attempted to walk to the bathroom with a walker and subsequently fell on the floor. denied loss of consciousness or head trauma. Upon evaluation in the emergency department, found elevated troponin -0.759. No leukocytosis. INR -1.7 consistent with history of taking Coumadin. Urinalysis with no evidence of urinary tract infection. Pro BNP -1769. EKG showed atrial fibrillation with ventricular response of 120, no significant ST-T wave abnormalities were noted. Chest x-ray revealed cardiomegaly and pulmonary edema. The patient had cough with the phlegm production. The patient was given in the emergency department digoxin for rate control. The patient admitted for further management with admitting diagnoses of pulmonary edema, congestive heart failure, elevated troponin, cough with phlegm production, cognitive impairment, acute on chronic respiratory failure. HOSPITAL COURSE: The patient admitted to telemetry floor. The patient started on supplemental oxygen. Cardiology consult was requested. Home medications were resumed. Echocardiogram revealed preserved ejection fraction of 55% to 60% and right ventricular systolic pressure of 78 consistent with severe pulmonary hypertension. Coumadin was continued as per pharmacy to keep INR in therapeutic range between 2 and 3. Serial troponin minimally elevated. According to inspector materials and processes, minimal elevation of troponin likely due to the demand, no peak no hermilo noted to suggest coronary syndrome. EKG also revealed no acute ischemic changes. The patient was on diuretic. Cardiorenal parameters and volumes were closely monitored. The patient was followed up with chest x-ray. Supplemental oxygen titrated to keep pulse oximetry above 92%. The patient at some point required placement on the BiPAP. ABG revealed hypercapnia with CO2 retention. Prior to discharge patient was able to be weaned to oxygen via nasal cannula. CT of the chest revealed evidence of pulmonary edema. and possible pulmonary fibrosis. The patient was continued on diuretic as per inspector materials and processes. Urologist was consulted due to gross hematuria noted. The patient had a Wallis catheter placed. At the time of admission, the patient was on the Coumadin for atrial fibrillation. According to urologist, the Wallis was in the good position. It was draining and urine was clearing. The patient was on irrigation on as needed basis. Urine culture was checked, and the patient started on empiric antibiotics. Finasteride and Flomax added to existing regimen. He recommended to consider cystoscopy as elective in future. Urine culture revealed mixed gram-positive organism. Antibiotic course was completed. No leukocytosis. Afebrile. Urologist recommended continue Wallis and consider voiding trial later. GI closely followed. Bowel regimen instituted. Hemoglobin and hematocrit were closely monitored. Folic supplement added to existing medication regimen due to low folic acid level. GI procedure was on hold for now. Recommended to collect stool OB at the facility. [facility] was arranged to [facility] and the patient was stable for transfer. The patient afebrile. Urine clear, no leukocytosis, pulse oximetry stable on oxygen via nasal cannula. Electrolytes stable. Hemoglobin -11.4 and hematocrit -36.4. Platelet count was closely monitored and prior to discharge - 118. Wound care was provided as per wound care nurse recommendation for pressure ulcer present on admission. Bowel regimen instituted. The patient was stable for discharge to [facility] facility. FINAL DIAGNOSES: 1. Acute on chronic respiratory failure. 2. Abnormal cardiac enzyme, likely demand related. 3. Severe pulmonary hypertension. 4. Congestive heart failure. 5. Pulmonary fibrosis. 6. Thrombocytopenia. 7. Gross hematuria likely secondary to Wallis catheter and anticoagulation, -resolved. 8. Urinary retention. 9. Probable neurogenic bladder. 10. Benign prostatic hypertrophy. 11. Constipation. 12. Anemia. 13. Right top of the ear stage I decubitus ulcer, present on admission. 14. Left top of the ear stage II decubitus ulcer, present on admission. 15. Sacrococcyx deep tissue injury, present on admission. DISCHARGE MEDICATIONS: See medication reconciliation list. DISCHARGE INSTRUCTIONS: The patient was discharged to [facility]. Followup with medical doctor at the facility. Chris Guerrero M.D. I have been assigned to dictate discharge summary on this account and I was not involved in the patient's management. Jo RenteriaHerrera bentonPChikis DR: Heather JOB#: [id number] CC: GUNNER
== END 2017-11-17 04:25 | DRG 291 ==
LOC: EDBD 09:56 → EMR 10:00 → 2W 11:00 → EDBEDREQ 14:08 → 2W 11-04 12:00 → 4W 11-14 21:30
DX: I11.0 Hypertensive heart disease with heart failure (principal); J96.20 Acute and chronic respiratory failure, unspecified whether with hypoxia or hypercapnia; L89.150 Pressure ulcer of sacral region, unstageable; D69.6 Thrombocytopenia, unspecified; L89.813 Pressure ulcer of head, stage 3; I27.20 Pulmonary hypertension, unspecified; N39.0 Urinary tract infection, site not specified; J84.10 Pulmonary fibrosis, unspecified; N31.9 Neuromuscular dysfunction of bladder, unspecified; I48.91 Unspecified atrial fibrillation; I10 Essential (primary) hypertension; G31.84 Mild cognitive impairment of uncertain or unknown etiology; R31.0 Gross hematuria; I50.9 Heart failure, unspecified; Z91.81 History of falling; E78.5 Hyperlipidemia, unspecified; E11.9 Type 2 diabetes mellitus without complications; Z79.01 Long term (current) use of anticoagulants; Z74.01 Bed confinement status; K21.9 Gastro-esophageal reflux disease without esophagitis; K59.00 Constipation, unspecified; N40.1 Benign prostatic hyperplasia with lower urinary tract symptoms; R33.8 Other retention of urine; R00.0 Tachycardia, unspecified; R80.9 Proteinuria, unspecified
CPT/HCPCS: 36415; 36600; 71045; 71250; 74018; 80048; 80053; 80162; 81003; 82550; 82553; 82607; 82746; 82803; 82962; 83735; 83880; 84100; 84153; 84484; 85025; 85610; 87086; 93005; 93306; 94640; 94660; 94664; 94760; 99285; J7620